=== PATIENT | male | born 1980 | race Caucasian/White ===

== ENCOUNTER 2020-09-19 01:31 | Inpatient (IN) ==
[2020-09-19] MEDS ORDERED: KETOROLAC TROMETHAMINE 15 MG/ML VIAL IV STA (01:57)
--- NOTE | 2020-09-19 02:11 | Emergency Department Note ---
History of Present Illness General Chief complaint: Constipation Stated complaint: CONSTIPATED- ABDOMINAL PAIN Time Seen by Provider: 09/19/20 01:42 Source: patient Mode of arrival: ambulatory Limitations: no limitations History of Present Illness Maximum Pain Intensity: 9 This patient is a 40-year-old male who presents to the emergency department for evaluation of lower abdominal pain/constipation. The patient states that he has not had a normal bowel movement in the past 4 days. He states that throughout the day today, he has had "unbearable" lower abdominal pain, rated a 9/10. He states that he feels like he has to go to the bathroom but is unable. He has some nausea but denies vomiting. Denies urinary symptoms or fevers. He has tried an enema, suppository and milk of magnesia without relief. He does report a history of constipation and states that he was previously on medication for this, but is no longer taking it now. Home Medications Medication Instructions Recorded Confirmed Type clonidine HCl 0.2 mg PO BID 09/19/20 09/19/20 History doxepin 100 mg PO HS 09/19/20 09/19/20 History naltrexone 50 mg PO UD 09/19/20 09/19/20 History Allergies Allergy/AdvReac Type Severity Reaction Status Date / Time Penicillins Allergy Intermediate rash/sob Verified 09/19/20 01:54 Past Med/Surg History Medical History Bronchitis Cough Dog bite GERD (gastroesophageal reflux disease) Pneumonia Thumb laceration Surgical History H/O hernia repair No pertinent past surgical history Family History Other Heart disease Lung disease Social History Smoking Status: Never smoker Hx Substance Use: No marital status: Current Living Situation: Spouse current occupational status: employed Feels Safe at Home: Yes Review of Systems A total of 10 systems reviewed and were otherwise negative Physical Exam Vital Signs Vital Signs - 24 hr 09/19/20 01:34 09/19/20 02:07 09/19/20 02:24 Temperature 36.5 C Temperature Source Temporal Artery Scan Pulse Rate 108 H Pulse Rate [Finger] 101 H Pulse Rate from SpO2 Sensor Respiratory Rate 18 16 18 Respiratory Effort / Characteristics Non-Labored Respiratory Depth Normal Normal Blood Pressure 122/76 Blood Pressure [Left Arm] 137/86 Blood Pressure Mean 91 Blood Pressure Mean [Left Arm] 103 Blood Pressure Position Sitting Pulse Oximetry 98 98 92 Oxygen Delivery Method Room Air Room Air Room Air Sepsis Recent Fever Within 48 Hours No Sepsis New/Unexplained Change in Mental Status No Sepsis Action Taken by Nursing No Action Required 09/19/20 03:00 09/19/20 03:06 09/19/20 03:30 Temperature Temperature Source Pulse Rate 106 H 103 H 112 H Pulse Rate [Finger] 101 H Pulse Rate from SpO2 Sensor 107 H 104 H 112 H Respiratory Rate 23 21 18 Respiratory Effort / Characteristics Respiratory Depth Normal Blood Pressure 131/83 Blood Pressure [Left Arm] 131/83 Blood Pressure Mean 99 Blood Pressure Mean [Left Arm] 99 Blood Pressure Position Pulse Oximetry 94 94 93 Oxygen Delivery Method Room Air Sepsis Recent Fever Within 48 Hours Sepsis New/Unexplained Change in Mental Status Sepsis Action Taken by Nursing 09/19/20 04:00 09/19/20 04:01 09/19/20 04:34 Temperature Temperature Source Pulse Rate 112 H 114 H 106 H Pulse Rate [Finger] Pulse Rate from SpO2 Sensor 113 H 114 H Respiratory Rate 18 18 13 Respiratory Effort / Characteristics Respiratory Depth Blood Pressure 136/98 Blood Pressure [Left Arm] Blood Pressure Mean 110 Blood Pressure Mean [Left Arm] Blood Pressure Position Pulse Oximetry 95 95 Oxygen Delivery Method Sepsis Recent Fever Within 48 Hours Sepsis New/Unexplained Change in Mental Status Sepsis Action Taken by Nursing 09/19/20 05:00 09/19/20 05:01 09/19/20 05:31 Temperature Temperature Source Pulse Rate 107 H 104 H 110 H Pulse Rate [Finger] Pulse Rate from SpO2 Sensor 107 H 104 H 110 H Respiratory Rate 19 17 15 Respiratory Effort / Characteristics Respiratory Depth Blood Pressure 136/85 Blood Pressure [Left Arm] Blood Pressure Mean 102 Blood Pressure Mean [Left Arm] Blood Pressure Position Pulse Oximetry 94 95 94 Oxygen Delivery Method Sepsis Recent Fever Within 48 Hours Sepsis New/Unexplained Change in Mental Status Sepsis Action Taken by Nursing VITALS: Vitals are noted on the nurse's note and reviewed by myself. GENERAL: This is a 40-year-old male, uncomfortable appearing, sitting at the edge of the bed, well-developed well-nourished. SKIN: The skin was without rashes. EYES: Pupils equal round and reactive to light and accommodation. MOUTH: Mucous membranes moist. NECK: Supple without nuchal rigidity. No lymphadenopathy. HEART: Regular rate and rhythm without murmurs gallops or rubs. LUNGS: Clear to auscultation bilaterally without wheezes, rales or rhonchi. ABDOMEN: Positive bowel sounds x 4. Soft, mild tenderness across lower abdomen. No guarding or rebound tenderness. NEURO: Patient was alert and oriented to person place and time. Course Consultations Consultation #1: Derrick Coker PA-C - general surgery Consultation #2: Dr. Mancuso - [facility] hospitalist Administered Medications Discontinued Medications Hydromorphone HCl (Hydromorphone Inj 0.5 Mg/0.5 Ml Syr) 0.5 mg IV NOW STA Stop: 09/19/20 04:30 Last Admin: 09/19/20 04:37 Dose: 0.5 mg Documented by: [id number] Sodium Chloride (Nss 1000ml) 1,000 mls @ 999 mls/hr IV .Q1H1M ONE Stop: 09/19/20 04:40 Last Infusion: 09/19/20 04:46 Dose: 0 mls/hr Documented by: [id number] Admin: 09/19/20 03:43 Dose: 999 mls/hr Documented by: [id number] Ioversol (Ioversol 100ml) 100 ml IV ONCE ONE Stop: 09/19/20 02:53 Last Admin: 09/19/20 02:53 Dose: 92 ml Documented by: [id number] Ketorolac Tromethamine (Ketorolac Tromethamine 15 Mg/Ml Vial) 15 mg IV NOW STA Stop: 09/19/20 01:58 Last Admin: 09/19/20 02:02 Dose: 15 mg Documented by: [id number] Morphine Sulfate (Morphine Sulfate 10 Mg/Ml Carp/Vial) 6 mg IV NOW STA Stop: 09/19/20 02:50 Last Admin: 09/19/20 03:06 Dose: 6 mg Documented by: [id number] Ondansetron HCl (Ondansetron Inj 2 Mg/Ml 2 Ml Vial) Confirm Administered Dose 4 mg .ROUTE .STK-MED ONE Stop: 09/19/20 03:00 Last Admin: 09/19/20 03:05 Dose: Not Given Documented by: [id number] Ondansetron HCl (Ondansetron Inj 2 Mg/Ml 2 Ml Vial) 4 mg IV NOW STA Stop: 09/19/20 02:58 Last Admin: 09/19/20 03:05 Dose: 4 mg Documented by: [id number] Medical Decision Making Differential Diagnosis Appendicitis, testicular torsion, infections, diverticulitis, UTI, obstruction, mesenteric ischemia, aortic pathology, inflammatory bowel disease, renal colic, PUD, pancreatitis, biliary pathology, hernia, volvulus, constipation, as well as other pathologies. Home Medications Current Medication List: was personally reviewed by me Laboratory Data Attestation: I reviewed the patient's lab results. Result diagrams: 09/19/20 01:59 09/19/20 01:59 Lab Results 09/19/20 09/19/20 09/19/20 Range/Units 01:59 01:59 03:31 WBC 14.96 H (4.8-10.8) K/uL RBC 4.01 L (4.7-6.1) M/uL Hgb 14.6 (14.0-18.0) g/dL Hct 41.6 L (42-52) % MCV 103.7 H (80-100) fL MCH 36.4 H (25-34) pg MCHC 35.1 (32-36) g/dL RDW Std Deviation 49.6 H (36.4-46.3) fL RDW Coeff of [place] 13.0 (11.5-14.5) % Plt Count 280 (130-400) K/uL MPV 10.4 (7.4-10.4) fL Immature Gran % (Auto) 0.3 % Neut % (Auto) 88.5 % Lymph % (Auto) 6.6 % Harney % (Auto) 4.5 % Eos % (Auto) 0.0 % Baso % (Auto) 0.1 % Neut # (Auto) 13.23 H (1.4-6.5) K/uL Lymph # (Auto) 0.99 L (1.2-3.4) K/uL Harney # (Auto) 0.68 H (0.11-0.59) K/uL Eos # (Auto) 0.00 (0-0.5) K/uL Baso # (Auto) 0.02 (0-0.2) K/uL Immature Gran # (Auto) 0.04 H (0.00-0.02) K/uL Sodium 141 (136-145) mmol/L Potassium 3.4 L (3.5-5.1) mmol/L Chloride 103 (98-107) mmol/L Carbon Dioxide 26 (21-32) mmol/L Anion Gap 12.0 H (3-11) BUN 5 L (7-18) mg/dl Creatinine 0.99 (0.6-1.4) mg/dl Est Cr Clr Drug Dosing 113.1 ml/min Est GFR ( Amer) 109.2 Est GFR (Non-Af Amer) 94.2 BUN/Creatinine Ratio 5.5 L (10-20) Glucose 173 H (70-99) mg/dl Calcium 8.4 L (8.5-10.1) mg/dl Total Bilirubin 1.7 H (0.2-1) mg/dl AST 163 H (15-37) U/L ALT 46 (12-78) U/L Alkaline Phosphatase 355 H (45-117) U/L Total Protein 8.6 H (6.4-8.2) gm/dl Albumin 3.2 L (3.4-5.0) gm/dl Globulin 5.4 H (2.5-4.0) gm/dl Albumin/Globulin Ratio 0.6 L (0.9-2) Lipase 201 (73-393) U/L Urine Color Urine Appearance (Clear) Urine pH (4.5-7.5) Ur Specific [place] (1.000-1.030) Urine Protein (Negative) Urine Glucose (UA) (Negative) Urine Ketones (Negative) Urine Blood (Negative) Urine Nitrite (Negative) Urine Bilirubin (Negative) Urine Urobilinogen (Negative) Ur Leukocyte Esterase (Negative) COVID[facility]19 [facility] SARS-[facility]-2, RNA, NAAT (NEGATIVE) 09/19/20 09/19/20 Range/Units 03:31 04:40 WBC (4.8-10.8) K/uL RBC (4.7-6.1) M/uL Hgb (14.0-18.0) g/dL Hct (42-52) % MCV (80-100) fL MCH (25-34) pg MCHC (32-36) g/dL RDW Std Deviation (36.4-46.3) fL RDW Coeff of [place]ore[place] (11.5-14.5) % Plt Count (130-400) K/uL MPV (7.4-10.4) fL Immature Gran % (Auto) % Neut % (Auto) % Lymph % (Auto) % [place] % (Auto) % Eos % (Auto) % Baso % (Auto) % Neut # (Auto) (1.4-6.5) K/uL Lymph # (Auto) (1.2-3.4) K/uL Harney # (Auto) (0.11-0.59) K/uL Eos # (Auto) (0-0.5) K/uL Baso # (Auto) (0-0.2) K/uL Immature Gran # (Auto) (0.00-0.02) K/uL Sodium (136-145) mmol/L Potassium (3.5-5.1) mmol/L Chloride (98-107) mmol/L Carbon Dioxide (21-32) mmol/L Anion Gap (3-11) BUN (7-18) mg/dl Creatinine (0.6-1.4) mg/dl Est Cr Clr Drug Dosing ml/min Est GFR ( Amer) Est GFR (Non-Af Amer) BUN/Creatinine Ratio (10-20) Glucose (70-99) mg/dl Calcium (8.5-10.1) mg/dl Total Bilirubin (0.2-1) mg/dl AST (15-37) U/L ALT (12-78) U/L Alkaline Phosphatase (45-117) U/L Total Protein (6.4-8.2) gm/dl Albumin (3.4-5.0) gm/dl Globulin (2.5-4.0) gm/dl Albumin/Globulin Ratio (0.9-2) Lipase (73-393) U/L Urine Color Yellow Urine Appearance Clear (Clear) Urine pH 7.5 (4.5-7.5) Ur Specific [place] > 1.045 H (1.000-1.030) Urine Protein Negative (Negative) Urine Glucose (UA) Negative (Negative) Urine Ketones 1+ H (Negative) Urine Blood Negative (Negative) Urine Nitrite Negative (Negative) Urine Bilirubin Negative (Negative) Urine Urobilinogen Positive H (Negative) Ur Leukocyte Esterase Negative (Negative) COVID-19 Eval Order SARS-CoV-2, RNA, NAAT NEGATIVE (NEGATIVE) Imaging Data Attestation: I personally reviewed and interpreted this imaging study as follows: Radiologist's Impression: CT ABDOMEN & PELVIS With Contrast: Potential colonic obstruction within the descending colon where there is abrupt transition (image [id number]) with upstream liquid and solid stool. This may be related to dense nodular stool in this region versus potential occult underlying mucosal mass. The colon distal to this is completely decompressed. There is no perforation or abscess. Small volume scattered free fluid. Severe hepatic steatosis and hepatomegaly. Radiologist: Dixon Patton MD ECG Data Attestation: I personally reviewed and interpreted this ECG as follows: Indication: + abdominal pain Rate (beats per minute): 107 Rhythm: + sinus tachycardia ECG Intervals/blocks: + Prolonged QT ECG ST segments: + Nonspecific ST abnormalities Change: the following changes noted (nonspecific ST changes noted) MDM Narrative Continuous school bus monitor: Order was placed for continuous school bus monitor. Patient was placed on the school bus monitor. Patient was noted to be in sinus tachycardia at an initial rate of 108 bpm. The patient is a 40-year-old male who presents today complaining of lower abdominal pain and constipation. Patient was very uncomfortable on arrival but his level of pain was unexpected for simple constipation. Therefore, labs and CT were ordered. Labs revealed a leukocytosis of 14,000. Glucose elevated at 173. Bilirubin elevated at 1.7, AST [address] phosphatase [address] CT scan showed a colonic obstruction, possibly secondary to stool in the colon or underlying mass. The case was discussed with on-call general surgery, recommended admission to medicine. [facility] Hospitalist was consulted and agreed to evaluate the patient for further care. The patient received IV fluids, pain medication and antiemetics while in the emergency department. Impression & Plan Colonic obstruction, Abdominal pain Discharge Plan Visit Data Chief Complaint: Constipation Stated Complaint: CONSTIPATED- ABDOMINAL PAIN ED Provider: Madai Bird ED Midlevel Provider: Rose Craven Discharge Problem: Colonic obstruction, Abdominal pain Patient Disposition: Admitted As Inpatient Forms Stand Alone Forms: [facility] Prescriptions Prescriptions: No Action doxepin 100 mg capsule 100 mg PO HS RF: 0 clonidine HCl 0.2 mg tablet 0.2 mg PO BID RF: 0 naltrexone 50 mg tablet 50 mg PO UD RF: 0 Referrals Referrals: Lavelle Carrillo DO [Primary Care Provider] - Discharge Problem: Abdominal pain Qualifiers: Abdominal location: lower abdomen, unspecified Qualified Code(s): R10.30 - Lower abdominal pain, unspecified
[2020-09-19 02:16] LABS: Basophils # (auto) 0.02 K/uL (0-0.2); Basophils % (auto) 0.1 %; Hematocrit (blood only) 41.6 % (42-52); Hemoglobin 14.6 g/dL (14.0-18.0); Immature Granulocytes # (auto) 0.04 K/uL (0.00-0.02); Immature Granulocytes % (auto) 0.3 %; Lymphocytes # (auto) 0.99 K/uL (1.2-3.4); Lymphocytes % (auto) 6.6 %; Mean Corpuscular Hemoglobin 36.4 pg (25-34); Mean Corpuscular Hgb Conc 35.1 g/dL (32-36); Mean Corpuscular Volume 103.7 fL (80-100); Mean Platelet Volume 10.4 fL (7.4-10.4); Monocytes # (auto) 0.68 K/uL (0.11-0.59); Monocytes % (auto) 4.5 %; Neutrophils # (auto) 13.23 K/uL (1.4-6.5); Neutrophils % (auto) 88.5 %; Platelet Count 280 K/uL (130-400); RDW Standard Deviation 49.6 fL (36.4-46.3); Red Blood Count 4.01 M/uL (4.7-6.1); White Blood Count 14.96 K/uL (4.8-10.8)
[2020-09-19 02:36] LABS: Albumin Level 3.2 gm/dl (3.4-5.0); BUN Creatinine Ratio 5.5 (10-20); Calcium 8.4 mg/dl (8.5-10.1); Creatinine Clr Calc Pharmacy 113.1 ml/min; Est GFR (African American) 109.2; Est GFR (Non-African American) 94.2; Potassium 3.4 mmol/L (3.5-5.1)
[2020-09-19 02:48] LABS: Albumin Globulin Ratio 0.6 (0.9-2); Bilirubin,Total 1.7 mg/dl (0.2-1); Globulin 5.4 gm/dl (2.5-4.0); Total Protein 8.6 gm/dl (6.4-8.2)
[2020-09-19] MEDS ORDERED: MoRPHine SULFATE 10 MG/ML CARP/VIAL IV STA (02:49)
[2020-09-19] MEDS ORDERED: OPTIRAY 320 100ml IV ONE (02:52)
[2020-09-19] MEDS ORDERED: ONDANSETRON INJ 2 MG/ML 2 ML VIAL IV STA (02:57)
[2020-09-19] MEDS ORDERED: ONDANSETRON INJ 2 MG/ML 2 ML VIAL ONE ×2 (02:59→14:20)
[2020-09-19] MEDS ORDERED: SODIUM CHLORIDE 0.9% 1000ML 1,000 ML IV ONE (03:40)
[2020-09-19] MEDS ORDERED: HYDROmorphone INJ 0.5 MG/0.5 ML SYR IV STA (04:29)
--- NOTE | 2020-09-19 04:37 | Surgery Consultation ---
Date of Consultation September 19, 2020 Assessment & Plan (1) Colon obstruction: Patient will be admitted to the hospital by the medical service. The following recommendations are in place: Recommend keeping the patient n.p.o. Provide IV fluid for hydration Etiology of patient's: Obstruction has not been ascertained. Would be preferable for patient to undergo a colonoscopy to see if he has an underlying mass. Therefore we recommend a gastroenterology consultation be obtained. Patient does not have any peritoneal signs or other signs of acute abdomen. If surgery is required it would be preferable to perform a colonoscopy and appropriate bowel prep prior to any procedures. We will continue to follow along with this patient is hospitalized as above. ? etiology. GI to do sigmoidoscopy tomorrow. will follow along. may need NGT if nausea/emesis occurs. History of Present Illness Reason for Consultation: Constipation with colon obstruction History of Present Illness This is a 40-year-old male who presented to the [facility] secondary to constipation and abdominal pain. Patient notes that he has been constipated for approximately 5 days. Notes the last normal bowel movement he had was 5 days ago although he did report a small bowel movement earlier today. He presented to the emergency department due to worsening abdominal distention and pain that has been present over the past 12 hours. He denies any fevers, shakes, chills. He denies any palliative or provocative factors to his abdominal discomfort. He has had some intermittent nausea but has not vomited. He feels as though he needs to have a bowel movement but just cannot. He notes he has never had this problem before. He denies any weight loss. He denies any family history of colon cancer. Prior to his current presentation he denies any change in his bowel habits. He denies any melena or bright blood per rectum. In the emergency department the patient did have labs where his white blood cell count was 14.9. His hemoglobin was within the normal range. His platelet count was noted to be within normal range. Chemistry profile did show sodium was 141 potassium was 3.4. His BUN and creatinine were 5 and 0.9. He was noted to have some abnormalities of his LFTs with a total bilirubin of 1.7. His AST was elevated at 163 however his ALT was normal. Alkaline phosphatase was elevated at 355. Lipase was normal. A Covid test was performed and was negative. Imaging included a CT scan of the abdomen and pelvis. This study demonstrated the patient had a colonic obstruction within the descending colon felt to be related to either a large stool burden or potential underlying mucosal mass. No free air was noted. Patient notes that when he is feeling well he is able to walk negotiate steps and inclines without shortness of breath or chest pain. He does note that he is a recovering alcoholic with his most recent alcoholic beverage being in May 2020. Questioned about how much he used to drink he he could not quantify the amount but said "quite a bit." At the time of my exam the patient was resting comfortably in bed he was in no distress and his pain was well controlled. Allergies Allergy/AdvReac Type Severity Reaction Status Date / Time Penicillins Allergy Intermediate rash/sob Verified 09/19/20 01:54 Home Medications Medication Instructions Recorded Confirmed Type clonidine HCl 0.2 mg PO BID 09/19/20 09/19/20 History doxepin 100 mg PO HS 09/19/20 09/19/20 History naltrexone 50 mg PO UD 09/19/20 09/19/20 History Patient History Medical History Bronchitis Cough Dog bite GERD (gastroesophageal reflux disease) Pneumonia Thumb laceration Surgical History H/O hernia repair No pertinent past surgical history Family History Other Heart disease Lung disease Social History Smoking Status: Unknown if ever smoked Second Hand Exposure: No; Do You Dip or Chew Tobacco: No; Tobacco Cessation Education Requested by Patient: No Hx Alcohol Use: No Hx Substance Use: Yes (alcohol) Preferred Language: Albanian Communication Ability: Effective Beliefs That Will Affect Care: None marital status: Current Living Situation: Family current occupational status: employed Other Information That Helps Us Care for You: No Feels Safe at Home: No Is there a partner from a previous relationship who is making you feel unsafe now?: No Any Concerns about Your Family Situation: No Would You Like to Speak to Someone About Your Situation: No Safety Concerns: Feels Safe At This Time Assistive Devices: None Review of Systems Constitutional: no fever and no chills Eyes: no diplopia Ear, Nose, Mouth, Throat: no ear pain Respiratory: no cough and no dyspnea Cardiovascular: no chest pain Gastrointestinal: + abdominal pain, + nausea and + constipation; no vomiting, no diarrhea/loose stools, no blood in stools and no melena Genitourinary: no dysuria Musculoskeletal: no back pain Integumentary: no rash Neurologic: no localized weakness Physical Exam Constitutional: well developed and well nourished; no acute distress Eyes: no conjunctival abnormality ENMT: Ears: no hearing impairment Neck: trachea midline Respiratory: normal respiratory effort, lungs clear to auscultation Cardiovascular: Rate/Rhythm: regular rate and regular rhythm Gastrointestinal (Abdomen): Abdomen is distended. Bowel sounds are hypoactive. Abdomen is tympanic to percussion. There is no rebound tenderness or guarding. There is minimal pain with palpation. Musculoskeletal: No calf tenderness. Skin: no rashes, warm and dry Neurologic: moves all extremities Psychiatric: Orientation: alert and oriented x 3 Affect: + flat affect Results & Data ([facility]) Vital Signs (Past 12 Hours) Vital Signs Temp Pulse Pulse Resp BP BP Pulse Ox 09/19/20 03:06 101 H 22 131/83 94 09/19/20 02:24 101 H 18 137/86 92 09/19/20 02:07 16 98 09/19/20 01:34 36.5 C 108 H 18 122/76 98 PG Care Time/CCT Total # of Minutes Spent Total Time Spent with Patient: Total time spent is greater than 50% in coordination of care (as documented) at patient's floor/unit and/or counseling patient: Coding Level of Care Code 14229 Inpt Consult Level 5 Diagnoses Colon obstruction K56.609
[2020-09-19 04:54] LABS: Appearance Urine Clear (Clear); Bilirubin Urine Negative (Negative); Blood Urine Negative (Negative); Color Urine Yellow; Glucose Urine UA Negative (Negative); Ketones Urine 1+ (Negative); Leukocyte Esterase Urine Negative (Negative); Nitrite Urine Negative (Negative); Protein Urine Negative (Negative); Specific Gravity Urine > 1.045 (1.000-1.030); Urobilinogen Urine Positive (Negative); pH Urine 7.5 (4.5-7.5)
[2020-09-19] MEDS ORDERED: NITROGLYCERIN SL 0.4 MG/TAB TAB SL PRN (06:20)
[2020-09-19] MEDS: KETOROLAC TROMETHAMINE 15 MG/ML VIAL IV PRN ×2 (06:39→14:25)
[2020-09-19] MEDS: D5W AND NSS 1,000 ML IV SCH ×3 (06:40→22:43)
--- NOTE | 2020-09-19 07:42 | CT Scan Report ---
ABDOMEN AND PELVIS CT WITH IV CONTRAST CT DOSE: 644.37 mGy.cm HISTORY: Acute lower abdominal pain with constipation. lower abdominal pain, constipation TECHNIQUE: Multiaxial CT images of the abdomen and pelvis were performed following the IV administrat ion of 92 cc of Optiray 320, A dose lowering technique was utilized adhering to the principles of [place]. COMPARISON STUDY: CT abdomen pelvis 01/15/2007 FINDINGS: The imaged inferior cardiac chambers are unremarkable. Right hemidiaphragmatic elevation with right g reater than left bibasilar opacities suggestive of atelectasis. There is no pneumatosis or pneumoperi toneum. Spleen is enlarged, 14.5 cm. Unremarkable pancreas and adrenal glands with mildly contracted gallbladder. Hepatic steatosis with severe graft hepatic steatosis within the garrick hepatis. Patency of the hepatic and portal veins. Unremarkable kidneys. Urinary bladder wall thickening with partial distention. Unremarkable prostate. Aorta and IVC are within normal limits. Nonspecific prominent and mildly enlarged periportal and pre caval lymph nodes measure up to 10 mm. The distal large bowel is decompressed. There is mild dilation of the upstream colon with air-fluid levels with transition point noted within the distal one third of the descending colon on image 343. No obstructing mass identified. Air and fluid-filled nondilated loops of small bowel are noted throughout the abdomen. Visualized appendix appears noninflamed. Trac e abdominal pelvic ascites. No acute fracture or suspicious bone lesion. IMPRESSION: 1. Narrowing of the distal one third of the descending colon with mild upstream colonic dilation with air-fluid levels. Correlation should be made with colonoscopy to exclude an obstructing mucosal lesi on. Peristalsis with colonic ileus/diarrheal illness could appear similarly. 2. Scattered small bowel air-fluid levels without small bowel obstruction may reflect ileus versus en teritis. 3. Noninflamed appendix. 4. No pneumoperitoneum. 5. Hepatic steatosis. 6. Mild hepatomegaly. ACT 112: Negative or not required by law. The above report was generated using voice recognition software. It may contain grammatical, syntax o r spelling errors. Electronically signed by: Jean Spain M.D. 09/19/2020 7:40 AM
[2020-09-19] MEDS: POTASSIUM CHLORIDE / WTR 10 MEQ/100 ML PLCT IV SCH ×3 (07:49→10:15)
[2020-09-19] MEDS: cloNIDine HCL 0.1 MG TAB PO SCH ×2 (07:49→20:10)
--- NOTE | 2020-09-19 09:21 | History and Physical Report ---
DATE OF ADMISSION: 09/19/2020 CHIEF COMPLAINT: Abdominal pain, constipation. HISTORY OF PRESENT ILLNESS: A 40-year-old male with past medical history significant for GERD, backache, migraine, anxiety, depression, history of alcohol abuse who presents with abdominal pain and constipation. The patient says since last 5 days, he did not move his bowels and today he developed severe abdominal pain in the lower abdomen, which prompted him to come to the ER. Before that he says he was moving his bowels every day. Denies any blood in the stools. He was nauseous. His appetite was okay, but it has become slightly reduced since the last couple of days. Denies any fever or chills, no upper abdominal pain. Denies any chest pain, no shortness of breath, no cough. Had a headache a few days back, currently no headache, no blurred vision, no earache, no runny nose, no sore throat, no dysphagia, no shortness of breath, no chest pain. The patient states he was alcoholic before and he went to rehab in 06/2019. Since then he drank only one day. He is supposed to take naltrexone as needed, but he says he is taking it every day. He says it can cause liver issues, but he says he is taking it every day and he is also on clonidine and doxepin and [id number] Nexium currently. ALLERGIES: PENICILLINS. PAST MEDICAL HISTORY: As mentioned above. PAST SURGICAL HISTORY: Repair of inguinal hernia. MEDICATIONS: Naltrexone, doxepin, and clonidine 0.2 mg p.o. b.i.d. FAMILY HISTORY: Significant for mother has anxiety and migraines. Father had IA and pulmonary embolism. Paternal grandmother had breast cancer. SOCIAL HISTORY: . Smokes cigars once in a while, used to drink alcohol in the past and currently says his last use was in 06/2019 as he went to rehab and stopped drinking, he drank only one day since then, but denies any drug use. REVIEW OF SYMPTOMS: As per HPI. Rest of the review of systems are negative. PHYSICAL EXAMINATION: GENERAL: The patient is of moderate build, not in acute distress. VITAL SIGNS: Temperature 36.5, pulse 101, respiratory rate 22, blood pressure 131/83, oxygen 94% on room air. HEENT: Pupils equal, round, reactive to light. Oral mucosa dry. NECK: No JVD, no neck masses seen. CARDIOVASCULAR: S1, S2 heard, regular rate and rhythm, no murmur, no gallop. RESPIRATORY SYSTEM: Normal AP diameter. No accessory muscle use. No wheezing, no crackles. ABDOMEN: Somewhat tense. Bowel sounds sluggish. No guarding, no rigidity. Mild lower abdominal tenderness. CENTRAL NERVOUS SYSTEM: Cranial nerves II-XII grossly intact. Nonfocal. EXTREMITIES: No edema, no erythema. LABORATORY DATA: WBC 14.9, hemoglobin 14.6, hematocrit 41.6, platelets 280. Sodium 141, potassium 3.4, chloride 103, bicarbonate 26, BUN 5, creatinine 0.9, serum glucose 173, calcium 8.4, total bilirubin 1.7, AST 163, ALT 46, alkaline phosphatase 355, total protein 8.5, lipase 201. Urinalysis, +1 ketones. SARS-CoV-2 negative. ELECTROCARDIOGRAM: Sinus tachycardia at a rate of 107, prolonged QT of 520. IMAGING: CT of abdomen and pelvis preliminary report shows potential colonic obstruction within the descending colon where there is transition with upstream liquid and solid stool. This may be related to dense stool in this region versus potential occult underlying mucosal mass. Colon distal to this completely decompressed. There is no perforation or abscess. Small volume scattered free fluid. Severe hepatic steatosis and hepatomegaly. ASSESSMENT AND PLAN: This is a 40-year-old male who presents with constipation, abdominal pain. 1. Constipation, abdominal pain. CAT scan showing impacted stool versus underlying colonic mass in the descending colon. Received pain medication in the Emergency Room. N.p.o., IV fluids, pain control with Toradol p.r.n. Emergency Room consulted Surgery and we will also consult Gastrointestinal for possible sigmoidoscopy/colonoscopy. Monitor in the hospital. 2. Elevated liver function tests. The patient has history of alcoholism. Says he was in rehabilitation in 06/2019. Since then, he is not drinking. He drank only once since then. Hepatic steatosis on the CAT scan. We will follow the repeat laboratories. Await Gastrointestinal input. The patient says he is also taking naltrexone every day, which can cause cholestasis We will hold naltrexone for now and we will also monitor for any alcohol withdrawals.Also on clonidine? 3. Depression, on doxepin.Clonidine? 4. Gastroesophageal reflux disease, on proton pump inhibitor. 5. Deep vein thrombosis prophylaxis, sequential compression devices for now. 6. Disposition: Closely monitor in the med-telemetry. Level 1 full code. Expect to discharge home and follow with family doctor. RIN
[2020-09-19] MEDS ORDERED: bisacodyL 10 MG SUPP PR ONE (09:44)
--- NOTE | 2020-09-19 09:55 | Gastrointestinal Consultation ---
Date of Consultation September 19, 2020 Assessment & Plan (1) Colonic obstruction: Pt is a 40 y/o male who presented w constipation, abd pain, distension, CT abd/pelvis showed signs of upstream colon dilation w transition point on descending colon concerning for obstruction. He is passing little flatus and had small stool yesterday. On exam abd is distended, but bowel sounds present. He is not having n/v. Hx of ETOH abuse, last consumption of ETOH was 05/2020, on Doxepin for insomina, Naltrexone for ETOh withdrawals. Denies narcotics. - Administer Bisacodyl 10mg NH today; may follow with tap water enema if no BM produced - Bowel rest; if n/v, place NGT for decompression - KUB tomorrow - Will determine timing of colonoscopy eval to r/o obstructive mass depending on bowel function and his ability to tolerate bowel prep - Surgery following Supervising Physician Co-Signing Physician Notes Late entry: Patient was seen and examined on 09/19 with NATALIA Ness whose note reflects our findings and plan. 5 days without BM, abd pain. CT reviewed. Unclear if finding represents stool vs a colonic lesion. Will proceed with bowel regimen and re-evaluate tomorrow. Abd mildly tender on exam. Surgery following. History of Present Illness Reason for Consultation: Constipation, bowel obstruction Requesting Physician: Dr. Candelario Mitchell Attending Physician: Dr. Charo Mack History of Present Illness Pt is a 40 y/o male who presented w abd pain, abd distension and constipation since last . Reports has tried Miralax and suppository at home prior to coming to hospital but not having much stool output. He is passing very little amt of flatus. He did have a small stool yesterday. He denies fever, chills, n/v. He reports not on bowel regimen on regular basis. Hx of ETOH abuse, last ETOH intake 05/2020, did go through ETOH rehab last year. He take Doxepin for insomnia, Naltrexone for ETOH withdrawals however denies any narcotics. Denies hx of abdominal surgeries, family hx of colorectal ca or IBD. He never had any endoscopic eval before. CT abd/pelvis w contrast: 1. Narrowing of the distal one third of the descending colon with mild upstream colonic dilation with air-fluid levels. Correlation should be made with colonoscopy to exclude an obstructing mucosal lesion. Peristalsis with colonic ileus/diarrheal illness could appear similarly. 2. Scattered small bowel air-fluid levels without small bowel obstruction may reflect ileus versus enteritis. 3. Noninflamed appendix. 4. No pneumoperitoneum. 5. Hepatic steatosis. 6. Mild hepatomegaly. Allergies Allergy/AdvReac Type Severity Reaction Status Date / Time Penicillins Allergy Intermediate rash/sob Verified 09/19/20 01:54 Home Medications Medication Instructions Recorded Confirmed Type clonidine HCl 0.2 mg PO BID 09/19/20 09/19/20 History doxepin 100 mg PO HS 09/19/20 09/19/20 History naltrexone 50 mg PO UD 09/19/20 09/19/20 History Patient History Medical History Bronchitis Cough Dog bite GERD (gastroesophageal reflux disease) Pneumonia Thumb laceration Surgical History H/O hernia repair No pertinent past surgical history Family History Other Heart disease Lung disease Social History Smoking Status: Unknown if ever smoked Second Hand Exposure: No; Do You Dip or Chew Tobacco: No; Tobacco Cessation Education Requested by Patient: No Hx Alcohol Use: No Hx Substance Use: Yes (alcohol) Preferred Language: Urdu Communication Ability: Effective Beliefs That Will Affect Care: None marital status: Current Living Situation: Family current occupational status: employed Other Information That Helps Us Care for You: No Feels Safe at Home: No Is there a partner from a previous relationship who is making you feel unsafe now?: No Any Concerns about Your Family Situation: No Would You Like to Speak to Someone About Your Situation: No Safety Concerns: Feels Safe At This Time Assistive Devices: Oxygen - Continuous Review of Systems Review of Systems: All systems reviewed & are unremarkable except as noted in HPI & below Physical Exam Constitutional: WD/WN, vitals as above well groomed, cooperative and comfortable Eyes: PERRL, conjunctivae normal, anicteric sclerae ENMT: external ear and nose normal, oropharynx normal Respiratory: normal respiratory effort, lungs clear to auscultation Cardiovascular: RRR, no murmur, no edema Gastrointestinal (Abdomen): Inspection/Auscultation: + abdomen distended and + hyperactive bowel sounds Percussion/Palpation: abdomen nontender Skin: no rashes, warm and dry no jaundice Psychiatric: A+Ox3, euthymic affect Lymphatic: no lymphedema Results & Data ([facility]) Vital Signs (Past 12 Hours) Vital Signs Temp Pulse Pulse Resp BP BP Pulse Ox 09/19/20 07:21 36.5 C 108 H 18 123/77 94 09/19/20 07:16 36.6 C 107 H 20 126/85 93 09/19/20 06:23 108 H 09/19/20 05:31 110 H 15 94 09/19/20 05:01 104 H 17 95 09/19/20 05:00 107 H 19 136/85 94 09/19/20 04:34 106 H 13 09/19/20 04:01 114 H 18 95 09/19/20 04:00 112 H 18 136/98 95 09/19/20 03:30 112 H 18 93 09/19/20 03:06 103 H 101 H 21 131/83 94 09/19/20 03:00 106 H 23 131/83 94 09/19/20 02:24 101 H 18 137/86 92 09/19/20 02:07 16 98 09/19/20 01:34 36.5 C 108 H 18 122/76 98
[2020-09-19] MEDS: PANTOprazole 40 MG in SYRINGE 0 ML IV SCH (10:50)
[2020-09-19] MEDS: MoRPHine SULFATE 2 MG/ML CARP IV PRN ×2 (11:16→17:25)
--- NOTE | 2020-09-19 12:50 | Hospitalist Progress Note ---
Date of Service September 19, 2020 Assessment & Plan (1) Colonic obstruction: (2) Abdominal pain: Present on admission with abdominal discomfort mostly due to constipation CT scan showed narrowing of the distal one third of the descending colon with mild upstream colonic dilation with air-fluid levels Gastro on board Bisacodyl 10mg NM given, may follow with tap water enema if no BM produced Continue bowel rest by keeping NPO If develops any N/V, consider to place an NGT for decompression Surgery on board, continue conservative management GI plan for possible colonoscopy eval during this admission Will repeat KUB in am Elevated liver function tests. Possible related to alcohol abuse AST 163 and ALk phos 355 Continue monitor Liver enzymes History of Alcohol abuse He said that he drank on once since rehab back in 06/2019 Counseling on alcohol cessation No sign of alcohol withdrawal Depression Continue doxepin and Clonidine Stable Hypokalemia K 3.4 on admission K replaced Continue monitor BMP Gastroesophageal reflux disease Continue proton pump inhibitor. DVT px on SCDs Disposition Will discharge once medically stable Admission and Anticipated Discharge Date Admission Date: September 19, 2020 Subjective Pt was seen and examined for follow up of abdominal pain Lying in bed continue to have abdominal discomfort Pt said that his pain a little better currently because he just received pain med Pt said that yesterday that he had a small bowel movement He said that he is passing gas Denies any chest pain, palpitation, dizziness and SOB Review of Systems Review of Systems: All systems reviewed & are unremarkable except as noted in Subjective Physical Exam Physical Exam: General- No acute distress Head- atraumatic Eyes- PERRL, EOMI, ENT- oropharynx clear Neck- supple, no JVD Lungs- clear to auscultation Heart- regular rhythm; no murmur Abdomen- normal bowel sounds, +mild tender, +abdominal distention Extremities- no calf tenderness Neuro- alert, oriented x 3; PERRL, EOMI; no facial palsy; no dysarthria Skin- warm & dry Results & Data Results & Data ([facility]) Vital Signs (Past 12 Hours) Vital Signs Temp Pulse Pulse Resp BP BP Pulse Ox 09/19/20 11:49 36.9 C 111 H 18 119/68 92 09/19/20 07:21 36.5 C 108 H 18 123/77 94 09/19/20 07:16 36.6 C 107 H 20 126/85 93 09/19/20 06:23 108 H 09/19/20 05:31 110 H 15 94 09/19/20 05:01 104 H 17 95 09/19/20 05:00 107 H 19 136/85 94 09/19/20 04:34 106 H 13 09/19/20 04:01 114 H 18 95 09/19/20 04:00 112 H 18 136/98 95 09/19/20 03:30 112 H 18 93 09/19/20 03:06 103 H 101 H 21 131/83 94 09/19/20 03:00 106 H 23 131/83 94 09/19/20 02:24 101 H 18 137/86 92 09/19/20 02:07 16 98 09/19/20 01:34 36.5 C 108 H 18 122/76 98 (1) Abdominal pain Abdominal location: lower abdomen, unspecified Qualified Code(s): R10.30 - Lower abdominal pain, unspecified
--- NOTE | 2020-09-19 12:54 | Electrocardiogram Report ---
Test Reason : Blood Pressure : / mmHG Vent. Rate : 107 BPM Atrial Rate : 107 BPM P-R Int : 132 ms QRS Dur : 084 ms QT Int : 390 ms P-R-T Axes : 039 003 010 degrees QTc Int : 520 ms Sinus tachycardia Prolonged QT Abnormal ECG When compared with ECG of 21-MAY-2019 17:50, Criteria for Septal infarct are no longer Present Nonspecific T wave abnormality now evident in Anterior leads Confirmed by Edgard Constantino ([id number]) on 09/19/2020 12:53:53 PM Referred By: REFERRED SELF Confirmed By:Edgard Constantino
--- NOTE | 2020-09-19 12:57 | Electrocardiogram Report ---
Test Reason : Blood Pressure : / mmHG Vent. Rate : 113 BPM Atrial Rate : 113 BPM P-R Int : 128 ms QRS Dur : 084 ms QT Int : 358 ms P-R-T Axes : 041 000 016 degrees QTc Int : 491 ms Sinus tachycardia Otherwise normal ECG When compared with ECG of 19-SEP-2020 04:15, (unconfirmed) No significant change was found Confirmed by Edgard Constantino ([id number]) on 09/19/2020 12:56:56 PM Referred By: REFERRED SELF Confirmed By:Edgard Constantino
[2020-09-19] MEDS: hydrOXYzine HCl 10 MG TAB PO PRN (15:25)
[2020-09-19] MEDS: ONDANSETRON INJ 2 MG/ML 2 ML VIAL IV PRN (19:31)
[2020-09-19] MEDS: DOXEPIN HCL 50 MG CAPSULE PO SCH (20:11)
[2020-09-19] MEDS: PROMETHAZINE HCL 12.5 MG in SODIUM CHLORIDE 0.9% 50 ML IV PRN (21:21)
[2020-09-19] MEDS ORDERED: MoRPHine SULFATE 2 MG/ML CARP IV STA (22:08)
[2020-09-19] MEDS ORDERED: METOPROLOL TARTRATE 1 MG/ML VIAL IV STA (22:09)
[2020-09-20] MEDS: PROMETHAZINE HCL 12.5 MG in SODIUM CHLORIDE 0.9% 50 ML IV PRN ×2 (04:02→17:30)
[2020-09-20] MEDS: KETOROLAC TROMETHAMINE 15 MG/ML VIAL IV PRN ×2 (04:22→18:28)
[2020-09-20 07:07] LABS: Albumin Level 2.4 gm/dl (3.4-5.0); Bilirubin,Total 3.1 mg/dl (0.2-1); Calcium 7.9 mg/dl (8.5-10.1); Creatinine Clr Calc Pharmacy 125.4 ml/min; Est GFR (African American) 122.5; Est GFR (Non-African American) 105.7; Total Protein 6.9 gm/dl (6.4-8.2)
[2020-09-20 08:06] LABS: Potassium 3.9 mmol/L (3.5-5.1)
[2020-09-20 08:10] LABS: Bilirubin Direct 1.8 mg/dl (0-0.2); Magnesium 3.5 mg/dl (1.8-2.4)
[2020-09-20] MEDS: D5W AND NSS 1,000 ML IV SCH ×3 (08:13→22:27)
[2020-09-20] MEDS: cloNIDine HCL 0.1 MG TAB PO SCH ×2 (08:14→20:55)
[2020-09-20] MEDS: ONDANSETRON INJ 2 MG/ML 2 ML VIAL IV PRN ×2 (08:14→15:19)
[2020-09-20] MEDS: MoRPHine SULFATE 2 MG/ML CARP IV PRN ×2 (08:14→15:19)
--- NOTE | 2020-09-20 08:15 | XRay Report ---
XR chest 1V portable HISTORY: hypoxia COMPARISON: Chest 02/10/2016. FINDINGS: No pneumothorax. No pleural effusions. There are low lung volumes with mild elevation the r ight hemidiaphragm. Bibasilar linear densities favor subsegmental atelectasis. The upper lung zones a re clear. No evidence for pulmonary edema. Cardiac silhouette is mildly enlarged. This may be accentu ated by the low lung volumes. IMPRESSION: Low lung volumes with bibasilar linear densities suggesting atelectasis. ACT 112: Negative or not required by law. Electronically signed by: Kade Vega M.D. 09/20/2020 8:14 AM
[2020-09-20 08:17] LABS: Basophils # (auto) 0.01 K/uL (0-0.2); Hematocrit (blood only) 39.4 % (42-52); Hemoglobin 13.3 g/dL (14.0-18.0); Immature Granulocytes # (auto) 0.18 K/uL (0.00-0.02); Immature Granulocytes % (auto) 0.8 %; Lymphocytes % (auto) 4.7 %; Mean Corpuscular Hemoglobin 36.2 pg (25-34); Mean Corpuscular Hgb Conc 33.8 g/dL (32-36); Mean Corpuscular Volume 107.4 fL (80-100); Mean Platelet Volume 10.7 fL (7.4-10.4); Monocytes # (auto) 1.21 K/uL (0.11-0.59); Monocytes % (auto) 5.1 %; Neutrophils # (auto) 21.11 K/uL (1.4-6.5); Neutrophils % (auto) 89.4 %; Platelet Count 155 K/uL (130-400); RDW Coefficient of Variation 13.8 % (11.5-14.5); RDW Standard Deviation 53.9 fL (36.4-46.3); Red Blood Count 3.67 M/uL (4.7-6.1); White Blood Count 23.61 K/uL (4.8-10.8)
[2020-09-20] MEDS ORDERED: cefTRIAXone SODIUM 2,000 MG in DEXTROSE 5% 50 ML IV ONE (09:30)
--- NOTE | 2020-09-20 09:32 | XRay Report ---
KUB CLINICAL HISTORY: Evaluate stool burden. FINDINGS: 2 AP supine abdominal radiographs are correlated with abdominal CT dated 321. The small bow el and colon are mildly distended and gas-filled. Small bowel loops measure up to 3.8 cm in diameter. There is minimal colonic fecal retention. No evidence of intraperitoneal free air is seen on these s upine images. There are no abnormal abdominal calcifications. The liver appears mildly enlarged. The bony structures are intact as imaged. IMPRESSION: 1. There is minimal colonic fecal retention. 2. There is gaseous distention of the small bowel and colon. The appearance favors an ileus. Low-grad e/developing obstruction is considered less likely, and clinical correlation will be required. Electronically signed by: Jayme Kenney M.D. 09/20/2020 9:30 AM
[2020-09-20] MEDS ORDERED: SODIUM CHLORIDE 0.9% 1000ML 1,000 ML IV ONE (09:34)
--- NOTE | 2020-09-20 09:34 | Surgery Progress Note ---
Date of Service September 20, 2020 Assessment & Plan (1) Abdominal pain: appears to be infectious etiology. will check stool for c.diff. flagyl already initiated. agressive hydration. does not appear surgical etiology but will continue to follow along until definitive dx. (2) Leukocytosis: (3) Diarrhea: Admission and Anticipated Discharge Date Admission Date: September 19, 2020 Subjective pt downstairs getting kub per RN....per her pt tachypnea, tachycardia with multiple loose/explosive bm's... wbc increased to 23,000. pt himself states he has less pain... Physical Exam Physical Exam: pt not available for exam Results & Data ([facility]) Vital Signs (Past 12 Hours) Vital Signs Temp Pulse Pulse Resp BP BP Pulse Ox 09/20/20 08:16 36.9 C 115 H 22 138/82 95 09/20/20 02:56 36.7 C 113 H 30 H 128/74 91 09/20/20 01:54 110 H 22 91 09/20/20 01:45 108 H 28 H 87 L 09/20/20 01:40 36.9 C 110 H 30 H 81 L 09/20/20 01:11 118 H 09/19/20 22:35 118 H 127/78 09/19/20 22:33 118 H 18 127/78 90 PG Care Time/CCT Total # of Minutes Spent Total Time Spent with Patient: Total time spent is greater than 50% in coordination of care (as documented) at patient's floor/unit and/or counseling patient: Coding Level of Care Code 44328 Subseq Hosp Care Lvl 2 Diagnoses Abdominal pain R10.30 Abdominal location: lower abdomen, unspecified Leukocytosis D72.829 Diarrhea R19.7 (1) Abdominal pain Abdominal location: lower abdomen, unspecified Qualified Code(s): R10.30 - Lower abdominal pain, unspecified
--- NOTE | 2020-09-20 10:06 | Gastroenterology Progress Note ---
Date of Service September 20, 2020 Assessment & Plan (1) Colonic obstruction: Pt is a 40 y/o male who presented w constipation, abd pain, distension, CT abd/pelvis showed signs of upstream colon dilation w transition point on descending colon concerning for obstruction. He is passing little flatus and had small stool yesterday. On exam abd is distended, but bowel sounds present. He is not having n/v. Hx of ETOH abuse, last consumption of ETOH was 05/2020, on Doxepin for insomina, Naltrexone for ETOh withdrawals. Denies narcotics. Large BMs overnight and abd pain is improved. Though on exam abd still distended high pitched sounds now. No n/v Concerns for sepsis WBC up, tachycardic. - Discussed w hospitalist to start broad spectrum antibx and obtain whitley culture - KUB this AM; if still w large amt of fecal material will order another round of enema + suppository -> mild fecal retention, no free air, small/large bowel distension noted concerning for ileus, obstruction less likely. Pls replete K goal >4, avoid narcotics. Will order Relistor. - Bowel rest, IVF support. If n/v, pls place NGT for decompression - Surgery following Admission and Anticipated Discharge Date Admission Date: September 19, 2020 Supervising Physician Co-Signing Physician Notes Late entry: Patient was seen and examined on 09/20 with NATALIA Ness whose note reflects our findings and plan. Bowel regimen in place. Subjective Pt having large bowel movements up to this AM. Reports abd not as tender. Denies any n/v Noted WBC up to 23K, he is tachycardic, requiring O2 4L NC. CXR w signs of atelectasis Review of Systems Review of Systems: All systems reviewed & are unremarkable except as noted in HPI & below Physical Exam Constitutional: WD/WN, vitals as above well groomed, cooperative and comfortable Eyes: PERRL, conjunctivae normal, anicteric sclerae ENMT: external ear and nose normal, oropharynx normal Respiratory: normal respiratory effort, lungs clear to auscultation Cardiovascular: RRR, no murmur, no edema Gastrointestinal (Abdomen): Inspection/Auscultation: + abdomen distended and + high-pitched sounds Percussion/Palpation: abdomen nontender Skin: no rashes, warm and dry no jaundice Psychiatric: A+Ox3, euthymic affect Lymphatic: no lymphedema Results & Data ([facility]) Vital Signs (Past 12 Hours) Vital Signs Temp Pulse Pulse Resp BP BP Pulse Ox 09/20/20 08:16 36.9 C 115 H 22 138/82 95 09/20/20 02:56 36.7 C 113 H 30 H 128/74 91 09/20/20 01:54 110 H 22 91 09/20/20 01:45 108 H 28 H 87 L 09/20/20 01:40 36.9 C 110 H 30 H 81 L 09/20/20 01:11 118 H 09/19/20 22:35 118 H 127/78 09/19/20 22:33 118 H 18 127/78 90
[2020-09-20] MEDS ORDERED: METHYLNALTREXONE BROMIDE 12 MG/0.6 ML VIAL SQ ONE (10:15)
[2020-09-20] MEDS: metroNIDAZOLE 500 MG/100 ML BAG IV SCH ×2 (10:39→17:31)
[2020-09-20] MEDS: PANTOprazole 40 MG in SYRINGE 0 ML IV SCH (10:41)
--- NOTE | 2020-09-20 13:41 | Hospitalist Progress Note ---
Date of Service September 20, 2020 Assessment & Plan (1) Colonic obstruction: (2) Abdominal pain: Present on admission with abdominal discomfort mostly due to constipation CT scan showed narrowing of the distal one third of the descending colon with mild upstream colonic dilation with air-fluid levels KUB showed minimal colonic fecal retention. There is gaseous distention of the small bowel and colon. The appearance favors an ileus. Gastro on board Bisacodyl 10mg [place] given, may follow with tap water enema if no BM produced Continue bowel rest by keeping NPO If develops any N/V, consider to place an NGT for decompression Surgery on board, continue conservative management Abdominal pain improves Starting on Rocephin and IV Flagyl due to elevate WBC and possible infection Elevated liver function tests. Possible related to alcohol abuse AST decreased from 163 to 82 and ALk phos decreased from 355 to 256 Continue monitor Liver enzymes Elevated WBC Elevated Lactate Possible related to sepsis (Elevated WBC and Tachycardia ) Procalcitonin wnl Continue IVF and IV abd with Rocephin and Flagyl started this morning Blood cx collected today - pending Will repeat Lactate Will monitor WBC History of Alcohol abuse He said that he drank on once since rehab back in 06/2019 Counseling on alcohol cessation No sign of alcohol withdrawal Depression Continue doxepin and Clonidine Stable Hypokalemia K 3.4 on admission Potassium 3.9 today Continue monitor BMP Gastroesophageal reflux disease Continue proton pump inhibitor. DVT px on SCDs Disposition Will discharge once medically stable Admission and Anticipated Discharge Date Admission Date: September 19, 2020 Subjective Pt was seen and examined for follow up of abdominal discomfort and distended Lying in bed with no acute distress, but continue to require 4-5L NC oxygen supplement Pt said that he feels a little better today He said that he had 3 large bowel movement He said that his mouth feels very dry and would like to get drink something He said that his abdominal pain improves today Denies any chest pain, palpitation, dizziness and dizziness Physical Exam Physical Exam: General- No acute distress Head- atraumatic Eyes- PERRL, EOMI, ENT- oropharynx clear, dry mouth Neck- supple, no JVD Lungs- clear to auscultation Heart- regular rhythm; no murmur Abdomen- normal bowel sounds, +mild tender, +abdominal distention Extremities- no calf tenderness Neuro- alert, oriented x 3; PERRL, EOMI; no facial palsy; no dysarthria Skin- warm & dry Results & Data Results & Data ([facility]) Vital Signs (Past 12 Hours) Vital Signs Temp Pulse Pulse Resp BP Pulse Ox 09/20/20 11:21 37.0 C 106 H 24 114/73 91 09/20/20 09:00 110 H 09/20/20 08:16 36.9 C 115 H 22 138/82 95 09/20/20 02:56 36.7 C 113 H 30 H 128/74 91 09/20/20 01:54 110 H 22 91 09/20/20 01:45 108 H 28 H 87 L 09/20/20 01:40 36.9 C 110 H 30 H 81 L (1) Abdominal pain Abdominal location: lower abdomen, unspecified Qualified Code(s): R10.30 - Lower abdominal pain, unspecified
[2020-09-20] MEDS: hydrOXYzine HCl 10 MG TAB PO PRN (18:25)
[2020-09-20] MEDS: DOXEPIN HCL 50 MG CAPSULE PO SCH ×2 (20:55→22:27)
[2020-09-21] MEDS: metroNIDAZOLE 500 MG/100 ML BAG IV SCH ×3 (00:46→18:37)
[2020-09-21] MEDS ORDERED: LORazepam 0.25 MG/0.5 ML VIAL IV STA (01:23)
[2020-09-21] MEDS: D5W AND NSS 1,000 ML IV SCH ×2 (05:03→14:30)
[2020-09-21 07:15] LABS: Mean Corpuscular Hemoglobin 35.7 pg (25-34); Mean Corpuscular Hgb Conc 33.3 g/dL (32-36); Mean Corpuscular Volume 107.1 fL (80-100); Mean Platelet Volume 10.6 fL (7.4-10.4); Platelet Count 140 K/uL (130-400); RDW Coefficient of Variation 13.5 % (11.5-14.5); RDW Standard Deviation 53.9 fL (36.4-46.3); Red Blood Count 3.64 M/uL (4.7-6.1); White Blood Count 12.36 K/uL (4.8-10.8)
[2020-09-21 07:27] LABS: Albumin Level 2.2 gm/dl (3.4-5.0); Calcium 7.7 mg/dl (8.5-10.1); Est GFR (African American) 125.4; Est GFR (Non-African American) 108.2; Potassium 3.6 mmol/L (3.5-5.1)
[2020-09-21 07:30] LABS: Albumin Globulin Ratio 0.5 (0.9-2); Bilirubin,Total 2.7 mg/dl (0.2-1); Globulin 4.1 gm/dl (2.5-4.0); Total Protein 6.3 gm/dl (6.4-8.2)
[2020-09-21] MEDS: cloNIDine HCL 0.1 MG TAB PO SCH ×3 (08:37→20:30)
--- NOTE | 2020-09-21 08:53 | Gastroenterology Progress Note ---
Date of Service September 21, 2020 Assessment & Plan (1) Colonic obstruction: Pt is a 40 y/o male who presented w constipation, abd pain, distension, CT abd/pelvis showed signs of upstream colon dilation w transition point on descending colon concerning for obstruction. Hx of ETOH abuse, last consumption of ETOH was 05/2020, on Doxepin for insomina, Naltrexone for ETOh withdrawals. Denies narcotics. He is passing flatus and having loose BMs. KUB yesterday showed signs of ileus instead of obstruction. Relistor given. Sepsis workup initiated yesterday. WBC improving after antibx started; blood and urine culture pending - F/U urine and blood culture - Repeat KUB today - Bowel rest, IVF support. If n/v, pls place NGT for decompression - Surgery following Admission and Anticipated Discharge Date Admission Date: September 19, 2020 Supervising Physician Co-Signing Physician Notes Late entry: Patient was seen and examined on 09/21 with NATALIA Ness whose note reflects our findings and plan. Bowel regimen in place. Subjective Pt continues to pass flatus and having multiple loose stools. Denies abd pain, n/v. Does still appear tachypnic & is tachycardic. He did receive Ativan last night for anxiety per RN but has worsening anxiety. Review of Systems Review of Systems: All systems reviewed & are unremarkable except as noted in HPI & below Physical Exam Constitutional: WD/WN, vitals as above well groomed, cooperative and comfortable Eyes: PERRL, conjunctivae normal, anicteric sclerae ENMT: external ear and nose normal, oropharynx normal Respiratory: Auscultation: + diminished lung sounds (mild on bilateral bases ) tachypnic Cardiovascular: RRR, no murmur, no edema Gastrointestinal (Abdomen): Inspection/Auscultation: + abdomen distended and normal bowel sounds Percussion/Palpation: abdomen nontender Skin: no rashes, warm and dry no jaundice Psychiatric: A+Ox3, euthymic affect Lymphatic: no lymphedema Results & Data ([facility]) Vital Signs (Past 12 Hours) Vital Signs Temp Pulse Pulse Resp BP BP Pulse Ox 09/21/20 08:11 37.5 C 116 H 22 130/84 91 09/21/20 05:10 36.9 C 120 H 18 130/56 L 93 09/20/20 23:51 122 H 09/20/20 23:00 36.6 C 109 H 18 129/84 90
--- NOTE | 2020-09-21 09:10 | XRay Report ---
KUB HISTORY: Follow up study in a patient with abdominal distention and reported ileus re-eval ileus COMPARISON: KUB 09/20/2020 FINDINGS: Persistent gaseous distention of the large and small bowel which has not significantly bennett ged. Large bowel loops measure up to 8.9 cm, previously 8.6 cm. Small bowel loops measure up to appro ximately 3.7 cm, previously 3.8 cm. No renal calculi. No ureteral calculi. No pneumoperitoneum or pn eumatosis. No fracture. IMPRESSION: Persistent gaseous distention of both large and small bowel suggestive of ileus. Continued follow-up recommended. ACT 112: Negative or not required by law. The above report was generated using voice recognition software. It may contain grammatical, syntax o r spelling errors. Electronically signed by: Jean Spain M.D. 09/21/2020 9:09 AM
[2020-09-21] MEDS ORDERED: cefTRIAXone SODIUM 2,000 MG in DEXTROSE 5% 50 ML IV SCH (09:30)
--- NOTE | 2020-09-21 09:36 | Surgery Progress Note ---
Date of Service September 21, 2020 Assessment & Plan (1) Abdominal pain: Patient started on Flagyl yesterday and Ceftriaxone today. WBC down to 12 from 23 and patient afebrile He remains tachycardic and requiring supplemental oxygen From an abdominal standpoint GI has ordered pt relistor and he is having + gas/BM's. He has intermittent nausea, no vomiting nor pain KUB today showing persistent gaseous distention of the small and large bowel consistent with ileus. He is somewhat distended still Would continue current supportive care for now. NGT if develops worsening n/v No plans for surgical intervention at this time as above.. feeling better. +multiple bms. no surgical intervention at this time. will sign off...please call if any questions or concerns. Admission and Anticipated Discharge Date Admission Date: September 19, 2020 Subjective Patient states he is feeling somewhat better from an abdominal standpoint. He is passing flatus and having BM's. No vomiting, but says he feels intermittently nauseated. Is not very hungry, but says he could drink something. He is wearing an oxymask and says he feels somewhat SOB at times. Physical Exam Physical Exam: awake Respiratory: some conversational dyspnea noted Gastrointestinal (Abdomen): Inspection/Auscultation: + abdomen distended Percussion/Palpation: abdomen soft; abdomen nontender Results & Data ([facility]) Vital Signs (Past 12 Hours) Vital Signs Temp Pulse Pulse Resp BP BP Pulse Ox 09/21/20 08:11 37.5 C 116 H 22 130/84 91 09/21/20 05:10 36.9 C 120 H 18 130/56 L 93 09/20/20 23:51 122 H 09/20/20 23:00 36.6 C 109 H 18 129/84 90 PG Care Time/CCT Total # of Minutes Spent Total Time Spent with Patient: Total time spent is greater than 50% in co ordination of care (as documented) at patient's floor/unit and/or counseling patient: Coding Level of Care Code 63963 Subseq Hosp Care Lvl 2 Diagnoses Abdominal pain R10.30 Abdominal location: lower abdomen, unspecified (1) Abdominal pain Abdominal location: lower abdomen, unspecified Qualified Code(s): R10.30 - Lower abdominal pain, unspecified
[2020-09-21] MEDS ORDERED: POTASSIUM PHOS 3 MMOL/1 ML INFUSION IV STA (11:12)
[2020-09-21] MEDS: PANTOprazole 40 MG in SYRINGE 0 ML IV SCH (11:29)
[2020-09-21] MEDS ORDERED: POTASSIUM PHOSPHATE 15 MMOL in DEXTROSE 5% 250 ML IV ONE (11:30)
[2020-09-21] MEDS ORDERED: D5W AND LACTATED RINGERS 1,000 ML IV SCH (12:00)
[2020-09-21] MEDS: KETOROLAC TROMETHAMINE 15 MG/ML VIAL IV PRN (14:52)
--- NOTE | 2020-09-21 17:48 | Hospitalist Progress Note ---
Date of Service September 21, 2020 Assessment & Plan (1) Colonic obstruction: (2) Abdominal pain: Present on admission with abdominal discomfort mostly due to constipation CT scan showed narrowing of the distal one third of the descending colon with mild upstream colonic dilation with air-fluid levels KUB showed minimal colonic fecal retention. There is gaseous distention of the small bowel and colon. The appearance favors an ileus. Gastro on board Bisacodyl 10mg MA given, may follow with tap water enema if no BM produced Continue bowel rest by keeping NPO If develops any N/V, consider to place an NGT for decompression Surgery on board, continue conservative management Abdominal pain improves Continue Rocephin and IV Flagyl due to elevate WBC and possible infection Elevated liver function tests. Possible related to alcohol abuse AST decreased from 163 to 82 --> 50 and ALk phos decreased from 355 to 256 --> 201 Continue monitor Liver enzymes Elevated WBC Elevated Lactate Possible related to sepsis (Elevated WBC and Tachycardia ) Procalcitonin wnl Continue IVF and IV abd with Rocephin and Flagyl started this morning Blood cx collected today - no growth WBC trending down History of Alcohol abuse He said that he drank once since rehab back in 06/2019 Counseling on alcohol cessation Pt continues declines drinking alcohol despite his HR continues to elevate He said that he is a very anxious person Multiples times I asked him if he drank alcohol in the last few days to tell me because if he goes to DT that can cause him to , but he continue declining Reviewed his meds to see if he was on any Benzo that he could have been withdrawal from that Depression Continue doxepin and Clonidine Stable Hypokalemia K 3.4 on admission Potassium 3.6 today Will replaced K to keep it above 4 Continue monitor BMP Gastroesophageal reflux disease Continue proton pump inhibitor. DVT px on SCDs Disposition Will continue monitor closely Admission and Anticipated Discharge Date Admission Date: September 19, 2020 Subjective Pt was seen and examined for follow up for abdominal distended. Lying in bed with mild respiratory distress but pt said that he is feeling ok He displayed symptoms of alcohol withdrawal due to tachycardia and drowsiness, but pt continues to insist that he did not have any alcohol in the last 2 months He said that he thinks he probably drank his last alcohol drink in June I insisted that if he lied to me that he goes to DT that can cause him to with complications of DT He said that he is abdominal pain is improved and continues to have bowel movement Denies any chest pain, palpitation, dizziness and fever Physical Exam Physical Exam: General- No acute distress Head- atraumatic Eyes- PERRL, EOMI, ENT- oropharynx clear, dry mouth Neck- supple, no JVD Lungs- clear to auscultation Heart- regular rhythm; no murmur Abdomen- normal bowel sounds, +mild tender, +abdominal distention Extremities- no calf tenderness Neuro- alert, oriented x 3; PERRL, EOMI; no facial palsy; no dysarthria Skin- warm & dry Results & Data Results & Data ([facility] [place]) Vital Signs (Past 12 Hours) Vital Signs Temp Pulse Pulse Resp BP BP Pulse Ox 09/21/20 15:49 36.8 C 100 H 18 127/87 91 09/21/20 11:42 36.9 C 112 H 22 141/88 H 91 09/21/20 10:15 120 H 26 H 92 09/21/20 10:00 118 H 28 H 88 L 09/21/20 08:11 37.5 C 116 H 22 130/84 91 09/21/20 08:00 115 H (1) Abdominal pain Abdominal location: lower abdomen, unspecified Qualified Code(s): R10.30 - Lower abdominal pain, unspecified
[2020-09-21] MEDS: DOXEPIN HCL 50 MG CAPSULE PO SCH (20:31)
--- NOTE | 2020-09-21 21:53 | Communication Note ---
Date of Service: September 21, 2020 Overnight developments 09/21, 9:50 PM Made aware by RN of patient episodic disorientation, episodic labored breathing. Speech somewhat slurred as per RN. had called in to notify staff that she found empty bottles of alcohol at home and would not be surprised if patient still drinking prior to confinement. Patient denies chest pain, unusual cough symptoms. Transient S OB as per patient. CXR as per my interpretation congestion CT head initially read: No ICH, mass-effect or edema. No evidence of acute cortical stroke. Serum ammonia 42.2 AP Shortness of breath secondary to pulmonary congestion/fluid overload encephalopathy Encephalopathy 2 alcohol withdrawal, possible hepatic encephalopathy (chronic liver disease on CT abdomen pelvis imaging) DC IVF Lasix, nebs stat DIA S, DT precautions Lactulose trial 09/21, 11 PM Patient noted to be sedated, tachypneic with shallow respiration as per RN. Cough symptoms as per RN. O2 sats later 94 on 2 L as per RN. AP Hypoxemic respiratory failure Possible aspiration Supplemental O2 Ertapenem Aspiration precautions Solu-Medrol, nebs 1 dose ICU provider requested to evaluate patient for ICU transfer for closer monitoring given clinical deterioration. Patient updated of developments over the phone. Will relay to AM provider.
[2020-09-21 22:44] LABS: Base Excess ABG -1.8 mEq/L (-9-1.8); HCO3 ABG 20 mmol/L (19-24); PCO2 ABG 28 mmHg (35-46); PO2 ABG 61 mmHg (80-95); pH ABG 7.48 (7.35-7.45)
[2020-09-21 22:46] LABS: Allen Test Pos (Pos)
[2020-09-21] MEDS ORDERED: LORazepam 1 MG/2 ML VIAL IV PRN (22:50)
[2020-09-21] MEDS ORDERED: GABAPENTIN 1200MG ALCOHOL WITHDRAWAL LOAD PO STA (22:50)
[2020-09-21] MEDS ORDERED: ATIVAN IV ALCOHOL WITHDRAWL IV PRN (22:50)
[2020-09-21] MEDS ORDERED: LORazepam 3 MG/6 ML VIAL IV PRN (22:50)
[2020-09-21] MEDS ORDERED: ALBUT/IPRATROP 3MG/0.5MG NEB 3 ML VIAL NEB STA (22:50)
[2020-09-21 23:02] LABS: Calcium 7.7 mg/dl (8.5-10.1); Creatinine Clr Calc Pharmacy 153.9 ml/min; Est GFR (African American) 132.8; Est GFR (Non-African American) 114.6; Potassium 3.4 mmol/L (3.5-5.1)
[2020-09-21] MEDS ORDERED: FUROSEMIDE 20 MG in SYRINGE 0 ML IV ONE (23:15)
[2020-09-21] MEDS ORDERED: GABAPENTIN 600 MG TAB PO ONE (23:15)
[2020-09-21] MEDS ORDERED: THIAMINE HCL 100 MG in SYRINGE 9 ML IV ONE (23:15)
[2020-09-21 23:40] LABS: Albumin Level 2.2 gm/dl (3.4-5.0); Magnesium 2.2 mg/dl (1.8-2.4)
[2020-09-21] MEDS ORDERED: POTASSIUM CHLORIDE CRTAB 20 MEQ TABCR PO ONE (23:45)
[2020-09-21] MEDS ORDERED: LACTULOSE SYRUP 30 GM/45 ML UDP PO ONE (23:45)
[2020-09-22] MEDS ORDERED: cloNIDine HCL 0.1 MG TAB PO ONE (00:45)
[2020-09-22] MEDS ORDERED: XOPENEX/ATROVENT 1.25mg/0.5MG NEB COMBO NEB STA (01:22)
[2020-09-22] MEDS ORDERED: LEVALBUTEROL 1.25MG/0.5ML NEB INH STA (01:23)
[2020-09-22] MEDS ORDERED: IPRATROPIUM BROMIDE NEB SOLN 0.02% 2.5 ML VIAL INH STA (01:23)
[2020-09-22] MEDS ORDERED: FUROSEMIDE 20 MG in SYRINGE 0 ML IV ONE ×2 (01:30→03:15)
[2020-09-22] MEDS ORDERED: methylPREDNISolone 20 MG in SYRINGE 0 ML IV ONE (01:30)
[2020-09-22] MEDS: ERTAPENEM SODIUM 1,000 MG in SODIUM CHLORIDE 0.9% 50 ML IV SCH (01:55)
[2020-09-22] MEDS: LORazepam 2 MG/4 ML VIAL IV PRN ×2 (02:26→02:30)
[2020-09-22] MEDS ORDERED: ICU PROTOCOL FOR HYPERGLYCEMIA PRN (02:27)
[2020-09-22] MEDS ORDERED: ACETAMINOPHEN 65 ML IV ONE (02:29)
--- NOTE | 2020-09-22 02:30 | Critical Care Consultation ---
Date of Consultation September 22, 2020 Assessment & Plan (1) Admitted to intensive care unit: Reason Critically Ill: 40-year-old male who is currently hospitalized with colonic obstruction who is now with increasing agitation and altered mental status in the setting of concerns for alcohol withdrawal. Patient also with bilateral pulmonary infiltrates and concern for possible aspiration versus pulmonary edema. NEURO - * CAM ICU: Unable to assess * Alcohol withdrawal: * Patient unknown when last drink was had as he has been closet drinking. * In a discussion with the patient's , he received a DUI on 06/20/2019. Immediately after, the patient was brought to this institution and then ta alexey to [facility] where he spent 30 days. She reports that he had been clean up until May 2020. Her son caught him drinking in which she describes a "setback". She states that she was unaware that he had been drinking up until conversation over the last few days. Admittedly, she reports that now that she thinks about it, the patient has been snoring more than usual which is what he used to do when he drank. Additionally, she reports that she did scour the house and found bottles of coconut ROM, whiskey, vodka, and beer. She states that she would be unable to quantify his drinking quantity. * Unfortunately, the patient had increasing education over the last 24 hours. Additionally, the patient had hypertension and tachycardia. Patient was febrile on evaluation as well. Classically, the patient presents in delirium tremens with increasing agitation and requirement of benzodiazepines. * Patient initially responded fairly well to IV Ativan. Of concern, the patient has ongoing tachypnea and chest x-ray is concerning for bilateral infiltrative changes and possible aspiration pneumonia. * After failed attempts at noninvasive ventilatory support. Patient was intubated. Please see Pulm. * Will continue sedate with propofol while intubated. * Will obtain CT head for evaluation of underlying organic causes. CARDIAC/VASCULAR - * Tachycardia: * Compensatory and multifactorial in the setting of alcohol withdrawal as well as multifocal pneumonia versus pulmonary edema. * Hope that improvement in withdrawal with medication as well as intubation with increased oxygenation will show improvement. * Monitor on telemetry. RESPIRATORY - * Respiratory failure: * Secondary to multifocal pneumonia/pulmonary edema. * Apparently, there was concern for possible aspiration event. * Patient has been tachypneic for the last 24 hours. * Patient remains tachypneic with supplemental oxygen. * He is compensating well with his respiratory rate, however I am concerned given the need for sedation for alcohol withdrawal, the patient will have an impending poor airway. * Patient was noted to have a snoring/stridorous upper airway. Despite being on noninvasives with higher settings, the patient was not tolerating BiPAP and was not drawing great volumes. * Patient required emergent endotracheal intubation which was performed by anesthesia. Please see their note. * Will manage ventilator settings appropriately. * Will CT chest for further evaluation of infiltrative findings. GI/NUTRITION - * Colonic obstruction: * Resulting in constipation. Apparently, the patient has been having small bowel movements. * KUB concerning for ongoing insufflation of the colon. * Will repeat CT as the patient's abdomen is distended to evaluate for possible perforation. * Thankfully, laboratory assessment does not point towards this. * Prophylaxis: Famotidine RENAL/LYTES - * Hypokalemia: * Will replace appropriately. - * Joyce in place - Strict I&Os. ENDO - * No history of diabetes or thyroid disease * BSGs per unit protocol. ISS --> gtt per unit policy. HEME - * Stable H&H ID - * Multifocal pneumonia: * Concerns for possible aspiration. * Ertapenem in the penicillin allergic individual. * Previously on Rocephin and Flagyl. LINES/IV ACCESS - * PIVs x2 * ET tube * Joyce catheter * OG DVT PROPHYLAXIS - * Lovenox * SCDs I have personally spent 85 minutes of critical care time in the direct management of this patient. This is a life/limb threatening event. This includes time spent evaluating patient, direct bedside care, chart review, placing orders, interpretation of diagnostic studies, discussion with consultants, patient, and family members, as well as other required patient management activities. This time is exclusive of all separately billable procedures, and teaching time and separate from and in addition to any other critical care service time. Thank you for allowing us to participate in the care of this patient. Please refer to my attending physician's documentation for any further recommendations. (2) Colonic obstruction: (3) Abdominal pain: (4) Delirium tremens: Supervising Physician Co-Signing Physician Notes Patient seen and examined. Discussed with critical care SAUL. Agree with assessment and plan as noted. Please refer to my critical care addendum for additional details History of Present Illness Attending Physician: Candelario Mitchell MD History of Present Illness Patient is a 40-year-old male with a significant past medical history of GERD and alcohol abuse. Patient was admitted to this institution on 09/19 for concerns for constipation secondary to colonic obstruction. Patient had NG tube placed for decompression and had been doing well and having small bowel movements. Unfortunately, over the last 24 hours, the patient has had increasing anxiety and agitation. The patient did have a history of alcohol abuse in the past and had been in alcohol rehab and thought to be sober. Apparently, he relapsed in May of this past year. When the patient became more agitated, hospitalist did speak to the patient's and she informed staff that she had found bottles of liquor as well as beer at the house. Patient had received increasing doses of Ativan throughout the night and despite this, remained tachypneic. Patient received IV Lasix as chest x-ray was concerning for increasing pulmonary edema. Patient broadly covered with antibiotics including ertapenem. I was requested by hospitalist to evaluate the patient for transfer to ICU given ongoing agitation, tachypnea, hypoxia, etc. Upon assessment at bedside, the patient is alert, but somnolent after receiving IV Ativan. He is tachypneic. He is tachycardic. He becomes agitated with stimuli. He is unable to contribute to history of present illness. Allergies Allergy/AdvReac Type Severity Reaction Status Date / Time Penicillins Allergy Intermediate rash/sob Verified 09/19/20 01:54 Home Medications Medication Instructions Recorded Confirmed Type clonidine HCl 0.2 mg PO BID 09/19/20 09/19/20 History doxepin 100 mg PO HS 09/19/20 09/19/20 History naltrexone 50 mg PO UD 09/19/20 09/19/20 History Patient History Medical History Bronchitis Cough Dog bite GERD (gastroesophageal reflux disease) Pneumonia Thumb laceration Surgical History H/O hernia repair No pertinent past surgical history Family History Other Heart disease Lung disease Social History Smoking Status: Unknown if ever smoked Second Hand Exposure: No; Do You Dip or Chew Tobacco: No; Tobacco Cessation Education Requested by Patient: No Hx Alcohol Use: No Hx Substance Use: Yes (alcohol) Preferred Language: Romanian Communication Ability: Effective Beliefs That Will Affect Care: None marital status: Current Living Situation: Family current occupational status: employed Other Information That Helps Us Care for You: No Feels Safe at Home: No Is there a partner from a previous relationship who is making you feel unsafe now?: No Any Concerns about Your Family Situation: No Would You Like to Speak to Someone About Your Situation: No Safety Concerns: Feels Safe At This Time Assistive Devices: Oxygen - Continuous Review of Systems Review of Systems: Unobtainable due to cognitive status and Unobtainable due to reduced consciousness Physical Exam Physical Exam: VITAL SIGNS - Vital signs and nursing notes were reviewed. GENERAL - 40-year-old male appearing his stated age who is in moderate respiratory distress. Easily agitated. Somnolent at times. SKIN - Without rashes. HEAD - NC/AT. EYES - PERRL. Scleral icterus noted bilaterally. EARS - No deformities of external structures noted on gross examination bilaterally. NOSE - Midline and without cyanosis. MOUTH/OROPHARYNX - Without perioral cyanosis. Buccal mucosa pink and dry. NECK - Neck with FROM. Supple to palpation. No lymphadenopathy noted. No nuchal rigidity. LUNGS -tachypneic. Clear breath sounds noted with diminished breath sounds at the bases. Utilizing accessory muscles. CARDIAC - RRR with S1/S2. No murmur, rubs, or gallops appreciated. ABDOMEN - Abdominal contour distended without pulsations or visible masses. Slight TTP throughout. BS distant all four quadrants. Slight ascited noted. EXTREMITIES - No clubbing or peripheral cyanosis. No pretibial edema present. +3/5 radial and dorsalis pedis pulses palpated throughout. +5/5 strength noted in UE/LE bilaterally. NEUROLOGIC -no focal neurological deficits appreciated. PSYCH -agitated with stimuli. Sedate secondary to benzodiazepines. Results & Data Results & Data ([facility]) Vital Signs (Past 12 Hours) Vital Signs Temp Pulse Pulse Resp BP BP Pulse Ox 09/22/20 00:25 37.1 C 120 H 28 H 144/103 H 89 L 09/21/20 23:17 105 H 26 H 95 09/21/20 19:16 36.8 C 77 20 135/89 94 09/21/20 16:00 105 H 09/21/20 15:49 36.8 C 100 H 18 127/87 91 Coding Level of Care Code Critical Care 1st 30-74 mins Diagnoses Admitted to intensive care unit Z78.9 Colonic obstruction K56.609 Abdominal pain R10.30 Abdominal location: lower abdomen, unspecified Delirium tremens F10.231 Time Spent (min) 85 (1) Abdominal pain Abdominal location: lower abdomen, unspecified Qualified Code(s): R10.30 - Lower abdominal pain, unspecified
[2020-09-22 02:33] LABS: Basophils # (auto) 0.03 K/uL (0-0.2); Basophils % (auto) 0.2 %; Eosinophils # (auto) 0.16 K/uL (0-0.5); Eosinophils % (auto) 1.2 %; Hematocrit (blood only) 42.9 % (42-52); Hemoglobin 14.5 g/dL (14.0-18.0); Immature Granulocytes # (auto) 0.03 K/uL (0.00-0.02); Immature Granulocytes % (auto) 0.2 %; Lymphocytes # (auto) 1.44 K/uL (1.2-3.4); Lymphocytes % (auto) 11.1 %; Mean Corpuscular Hemoglobin 36.3 pg (25-34); Mean Corpuscular Hgb Conc 33.8 g/dL (32-36); Mean Corpuscular Volume 107.3 fL (80-100); Mean Platelet Volume 10.6 fL (7.4-10.4); Monocytes # (auto) 1.34 K/uL (0.11-0.59); Monocytes % (auto) 10.3 %; Neutrophils # (auto) 9.95 K/uL (1.4-6.5); Platelet Count 174 K/uL (130-400); RDW Coefficient of Variation 13.5 % (11.5-14.5); RDW Standard Deviation 53.3 fL (36.4-46.3); White Blood Count 12.95 K/uL (4.8-10.8)
[2020-09-22 02:50] LABS: iSTAT Allen Test Pass; iSTAT Art Bld Gas pCO2 Correct 37 mmHg (35-46); iSTAT Art Bld Gas pH Corrected 7.414 (7.35-7.45); iSTAT Arterial Blood Gas HCO3 24 meg/L (19-24); iSTAT Arterial Blood Gas pCO2 35 mmHg (35-46); iSTAT Arterial Blood Gas pH 7.44 (7.35-7.45); iSTAT Arterial Blood Gas pO2 71 mmHg (80-95); iSTAT Arterial Blood Gas pO2 C 79; iSTAT Carbon Dioxide 25 mmol/L (24-31); iSTAT Hematocrit 40 % (42-52); iSTAT Hemoglobin 13.6 g/dl (14.0-18.0); iSTAT Potassium 3.5 mmol/L (3.3-5.0); iSTAT Site R Radial; iSTAT Sodium 144 mmol/L (135-144)
[2020-09-22 02:57] LABS: Alanine Aminotransferase 25 U/L (12-78); Albumin Level 2.7 gm/dl (3.4-5.0); Aspartate Aminotransferase 59 U/L (15-37); BUN Creatinine Ratio 11.4 (10-20); Bilirubin Direct 2.6 mg/dl (0-0.2); Blood Urea Nitrogen 12 mg/dl (7-18); Calcium 7.6 mg/dl (8.5-10.1); Carbon Dioxide 27 mmol/L (21-32); Chloride 113 mmol/L (98-107); Creatinine Clr Calc Pharmacy 112.8 ml/min; Est GFR (African American) 106.6; Glucose 92 mg/dl (70-99); Magnesium 2.1 mg/dl (1.8-2.4); Potassium 3.4 mmol/L (3.5-5.1); Sodium 144 mmol/L (136-145)
[2020-09-22 03:00] LABS: Alkaline Phosphatase 230 U/L (45-117); Bilirubin,Total 3.6 mg/dl (0.2-1); NT Pro B Type Natriuretic Pept 233 pg/ml (0-450); Phosphorus 1.2 mg/dl (2.5-4.9); Total Protein 7.4 gm/dl (6.4-8.2); Troponin I < 0.015 ng/ml (0-0.045)
[2020-09-22] MEDS ORDERED: POTASSIUM CHLORIDE / WTR 10 MEQ/100 ML PLCT IV ONE (03:16)
[2020-09-22] MEDS ORDERED: POTASSIUM PHOS 3 MMOL/1 ML INFUSION IV STA (03:16)
[2020-09-22] MEDS ORDERED: RACEPINEPHRINE 2.25% NEBU SOLN 0.5 ML VIAL NEB STA (03:44)
[2020-09-22] MEDS ORDERED: POTASSIUM PHOSPHATE 24 MMOL in SODIUM CHLORIDE 0.9% 500 ML IV ONE (03:45)
[2020-09-22] MEDS ORDERED: RAPID SEQUENCE INDUCTION BAG ONE (03:48)
[2020-09-22] MEDS ORDERED: DEXAMETHASONE SOD INJ 10 MG/ML VIAL IV ONE (03:48)
[2020-09-22] MEDS ORDERED: RACEPINEPHRINE 2.25% NEBU SOLN 0.5 ML VIAL ONE (03:52)
[2020-09-22] MEDS ORDERED: PROPOFOL IV EMULSION 10 MG/ML 100 ML VIAL IV ONE (03:57)
[2020-09-22] MEDS ORDERED: dexAMETHasone 10 MG in SYRINGE 0 ML IV ONE (04:00)
[2020-09-22 04:07] LABS: Influenza A virus by PCR Negative (Neg); Influenza B virus by PCR Negative (Neg); RSV by PCR Negative (Neg); SARS CoV2 RNA(COVID-19) InHosp NEGATIVE (Negative)
[2020-09-22] MEDS: propofoL 1,000 MG/100 ML VIAL IV SCH ×2 (04:15→08:58)
[2020-09-22] MEDS ORDERED: PROPOFOL BOLUS FROM BAG IV PRN (04:26)
[2020-09-22] MEDS ORDERED: STAT IV Infusion **Titration per Protocol STA ×2 (04:26→08:39)
[2020-09-22] MEDS ORDERED: fentaNYL DRIP 1,250 MCG/250 ML BAG IV SCH (04:30)
--- NOTE | 2020-09-22 04:31 | Procedure Note ---
Procedure Note Date of Service September 22, 2020 I was called to assist with intubating the patient by Jona in the ICU. The patient is a 40 year old male who is in respiratory distress and not responding to voice. He has developed a stridor and is not ventilating well with Bipap. Covid 19 test is negative. The patient has a history of alcohol abuse and has elevated LFTs. Vital signs include SpO2 91, BP 150s/100s, HR 120s. On exam the patient is not responding to commands. He has a hackett. I was unable to perform an airway exam due to the Bipap and the patient being unresponsive. The patient has an upper airway stridor. Heart was tachycardic. Lungs had decreased breath sounds bilaterally. Intubation Note Indication for Intubation: Respiratory distress Consent: Emergency procedure, implied consent Time Out: A time-out was performed verifying correct patient with two identifiers, procedure, site, positioning, and special equipment. Monitors Attached: EKG NIBP Pulse Oximetry Induction Medications: 240 mg Propofol 100 mcg Fentanyl Paralytic Medication: 140 mg Succinylcholine Intubation Technique: Patient preoxygenated on Bipap, Difficult Mask Ventilation due to hackett. Airway Suctioned Equipment: Glidescope #4 Grade View: 1, large amount of thick sputum in airway Endotracheal Tube: 7.5 ETT Procedure Details: ET tube was placed atraumatically on one attempt. Balloon was inflated and the tube was secured at 24 cm. Placement was confirmed by positive CO2 detection and auscultation. Post-procedure: The patients vital signs were monitored throughout the procedure. His SpO2 briefly dropped into the 80s after during manual ventilation and the intubation but quickly duy to the mids 90s after intubation. His SBP was 150s preinduction with HR in the 120s. Post intubation SBP with HR in the 120s. He was given phenylephrine 100 mcg. Patient tolerated the procedure well without apparent complications. Post placement CXR ordered by ICU team who will follow. Coding
[2020-09-22 04:57] LABS: INR 1.4 (0.9-1.1); Prothrombin Time 13.8 Seconds (9.0-12.0)
[2020-09-22] MEDS ORDERED: OPTIRAY 320 125ml IV ONE (05:31)
[2020-09-22 05:48] LABS: iSTAT Allen Test Pass; iSTAT Art Bld Gas pCO2 Correct 37 mmHg (35-46); iSTAT Arterial Blood Gas HCO3 23 meg/L (19-24); iSTAT Arterial Blood Gas pCO2 36 mmHg (35-46); iSTAT Arterial Blood Gas pH 7.41 (7.35-7.45); iSTAT Arterial Blood Gas pO2 90 mmHg (80-95); iSTAT Arterial Blood Gas pO2 C 94; iSTAT Carbon Dioxide 24 mmol/L (24-31); iSTAT FiO2 80 %; iSTAT Hematocrit 36 % (42-52); iSTAT Hemoglobin 12.2 g/dl (14.0-18.0); iSTAT Potassium 4.3 mmol/L (3.3-5.0); iSTAT Site R Radial; iSTAT Sodium 143 mmol/L (135-144)
[2020-09-22] MEDS ORDERED: GABAPENTIN 600 MG TAB PO SCH ×2 (06:00→20:00)
--- NOTE | 2020-09-22 06:54 | XRay Report ---
XR chest 1V portable CLINICAL HISTORY: Shortness of breath. Respiratory distress COMPARISON STUDY: 09/20/2020 FINDINGS: The cardiac and mediastinal contours remain stable. There are multifocal airspace opacities suspicious for multifocal pneumonia. Trace pleural effusions cannot be excluded.[ IMPRESSION: Multifocal airspace opacities suspicious for a multifocal pneumonia. Clinical and radiogr aphic follow-up is recommended. ACT 112: Negative or not required by law. Electronically signed by: Alexandro Richards M.D. 09/22/2020 6:52 AM
--- NOTE | 2020-09-22 06:59 | CT Scan Report ---
CT head/brain wo con CLINICAL HISTORY: slurred speech POSSIBLE ACUTE STROKE COMPARISON STUDY: 05/21/2019 TECHNIQUE: Axial CT of the brain is performed from the vertex to the skull base. IV contrast was not administered for this examination. A dose lowering technique was utilized adhering to the principles of ALARA. CT DOSE: FINDINGS: No intra or extra-axial mass lesions are visualized. There is no CT evidence of acute cortical infarc tion. There is no evidence of midline shift. There is no acute hemorrhage. No calvarial fractures ar e visualized. There is no evidence of pathologic ventricular dilatation. There is no evidence of acute sinusitis IMPRESSION: No acute intracranial findings ACT 112: Negative or not required by law. Electronically signed by: Alexandro Richards M.D. 09/22/2020 6:58 AM
[2020-09-22] MEDS ORDERED: ENOXAPARIN INJ 40 MG/0.4 ML SYR SQ SCH (07:00)
--- NOTE | 2020-09-22 07:01 | XRay Report ---
XR chest 1V portable CLINICAL HISTORY: tachypnea, cough COMPARISON STUDY: 09/21/2020 FINDINGS: The cardiac and mediastinal contours remain stable. There are multifocal airspace opacities consistent with a multifocal pneumonia. The findings remain essentially stable[ IMPRESSION: Persistent multifocal airspace opacities suspicious for a multifocal pneumonia ACT 112: Negative or not required by law. Electronically signed by: Alexandro Richards M.D. 09/22/2020 7:00 AM
--- NOTE | 2020-09-22 07:09 | CT Scan Report ---
CT ANGIOGRAM OF THE CHEST CLINICAL HISTORY: Shortness of breath. Possible pulmonary embolism COMPARISON STUDY: Chest x-ray dated 09/22/2020 TECHNIQUE: Following the IV administration of 116 mL of Optiray-320, CT angiogram of the thorax was p erformed from the thoracic inlet to the lung bases utilizing the pulmonary embolus protocol. Images a re reviewed in the axial, sagittal, and coronal planes. IV contrast was administered without complica tion. MIP imaging was performed. A dose lowering technique was utilized adhering to the principles o f ALARA. CT DOSE: FINDINGS: There is hepatic steatosis. No pathologically enlarged axillary mediastinal or hilar lymph nodes were visualized. There was no evidence of thoracic aortic dilatation. There were no pulmonary artery filling defects to indicate acute pulmonary embolism. There is a small left pleural effusion and trace right pleural effusion. There was no evidence of focal pulmonary consolidation. There are multifocal groundglass opacities an d areas of parenchymal consolidation consistent with a multifocal pneumonia. There is an endotracheal tube positioned 3 cm above the main. IMPRESSION: 1. No evidence of acute pulmonary embolism 2. Multifocal airspace opacities indicative of a multifocal pneumonia 3. Small left pleural effusion and trace right pleural effusion 4. Hepatic steatosis ACT 112: Negative or not required by law. Electronically signed by: Alexandro Richards M.D. 09/22/2020 7:07 AM
[2020-09-22] MEDS ORDERED: fentaNYL citrate 100 MCG/2 ML VIAL IV ONE (07:15)
[2020-09-22] MEDS ORDERED: SUCCINYLCHOLINE CHLORIDE 20 MG/ML 10 ML VIAL IV ONE (07:15)
[2020-09-22] MEDS ORDERED: ETOMIDATE 2 MG/ML 20 ML VIAL IV ONE (07:15)
[2020-09-22] MEDS ORDERED: MIDAZOLAM HCL 5 MG/ML VIAL IV ONE (07:15)
--- NOTE | 2020-09-22 07:30 | XRay Report ---
XR KUB/Abdomen 1 view CLINICAL HISTORY: abd distention COMPARISON STUDY: 09/21/2020 FINDINGS: A single erect view the abdomen is provided for interpretation. The exam that was performed portably. No free air is visualized on the provided image. There is persistent gaseous distention of colon and small bowel loops. The right lateral abdomen and pelvis was not included on this study. IMPRESSION: Technically limited study. Persistent gaseous distention of bowel. No free air identifie d ACT 112: Negative or not required by law. Electronically signed by: Alexandro Richards M.D. 09/22/2020 7:28 AM
--- NOTE | 2020-09-22 07:32 | CT Scan Report ---
CT soft tissue neck w con CT DOSE: CLINICAL HISTORY: Bilateral neck swelling TECHNIQUE: Helical images were acquired during intravenous administration of 116 cc of Optiray 320. A dose lowering technique was utilized adhering to the principles of ALARA. COMPARISON STUDY: None. FINDINGS: There are multifocal pulmonary airspace opacities, consistent with a multifocal pneumonia. There are bilateral pleural effusions left greater than right. Endotracheal tube is visualized. No thyroid masses are visualized. No salivary gland masses are visualized. There are no pathologically enlarged cervical lymph nodes. No necrotic nodes are evident. There are no fluid collections suspicious for abscess. There is no evidence of airway compromise. No mucosal space masses are visualized. IMPRESSION: 1. Indwelling endotracheal tube 2. Multifocal pulmonary airspace opacities consistent with a multifocal pneumonia 3. No pathologic neck masses identified. No evidence of pathologic adenopathy ACT 112: Negative or not required by law. Electronically signed by: Alexandro Richards M.D. 09/22/2020 7:31 AM
--- NOTE | 2020-09-22 08:00 | XRay Report ---
XR chest 1V portable CLINICAL HISTORY: Pneumonia COMPARISON STUDY: 09/22/2020 FINDINGS: There are multifocal pulmonary airspace opacities consistent with a multifocal pneumonia. T he findings are slightly progressive when compared the prior study. There are low lung volumes.[There is no pneumothorax. IMPRESSION: Multifocal airspace opacities consistent with a multifocal pneumonia. The findings are sl ightly progressive when compared the prior study ACT 112: Negative or not required by law. Electronically signed by: Alexandro Richards M.D. 09/22/2020 7:59 AM
--- NOTE | 2020-09-22 08:15 | CT Scan Report ---
CT SCAN OF THE ABDOMEN AND PELVIS WITH IV CONTRAST CLINICAL HISTORY: Constipation. Abdominal distention. COMPARISON STUDY: Abdominal CT dated 09/19/2020. TECHNIQUE: Following the IV administration of 116 cc of Optiray 320, CT scan of the abdomen and pelv is is performed from the lung bases to the proximal femora. Images are reviewed in the axial, sagitta l, and coronal planes. IV contrast was administered without complication. A dose lowering technique w as utilized adhering to the principles of ALARA. The examination is degraded by motion artifact, as w ell as by streak artifact from the arms which could not be elevated above the abdomen. CT DOSE: 2816.27 mGy.cm FINDINGS: Lung bases: The heart is normal in size and without pericardial effusion. There are trace pleural eff usions with bibasilar consolidation. A small hiatal hernia is noted. Liver: The contrast-enhanced liver is enlarged, measuring 21.9 cm in length. The liver demonstrates d iffusely diminished attenuation consistent with severe hepatic steatosis. Additional foci of geograph ic steatosis are seen throughout the liver, greatest adjacent to the gallbladder fossa. There is no i ntrahepatic biliary ductal dilatation. The hepatic veins and portal veins are patent. Gallbladder: Hyperdense material suggests within the gallbladder lumen, likely represent vicariously excreted contrast. Spleen: Normal in size and attenuation. Pancreas: Mildly atrophic and grossly unremarkable. Adrenal glands: Unremarkable. Kidneys: The contrast enhanced kidneys are normal in size and without hydronephrosis. The kidneys enh ance symmetrically. Abdominal vasculature: The abdominal aorta is normal in course and caliber. Bowel: The right colon is mildly distended and filled with liquid stool. Mild wall thickening is sugg ested throughout the colon with faint pericolonic infiltration. Additionally, there are mildly disten ded and fluid-filled loops of small bowel which measure up to 3 cm diameter. There is no evidence of high-grade obstruction, and the appearance suggest a nonspecific enterocolitis. Ileus is not excluded . The appendix is well-visualized and normal. There is mild sigmoid diverticulosis without CT eviden ce of acute diverticulitis. Peritoneum: There is a small volume of abdominopelvic ascites. No intraperitoneal free air is identif ied. Lymphadenopathy: None. Pelvic viscera: The bladder is decompressed around a Joyce catheter and is not well evaluated. The pr ostate and seminal vesicles are normal as imaged. Skeletal structures: No lytic or blastic lesions are seen. IMPRESSION: 1. Streak and motion degraded examination. 2. Trace pleural effusions with bibasilar consolidation. 3. Findings suggest a nonspecific enterocolitis. Clinical correlation will be required. 3. There is no evidence of high-grade bowel obstruction. Mild ileus is not excluded. 4. Hepatomegaly and severe hepatic steatosis. 5. Small volume of abdominopelvic ascites. 6. Additional findings as above. ACT 112: Negative or not required by law. Electronically signed by: Jayme Kenney M.D. 09/22/2020 8:13 AM
[2020-09-22] MEDS: FAMOTIDINE 20 MG in SYRINGE 3 ML IV SCH ×2 (08:19→20:53)
[2020-09-22] MEDS: FOLIC ACID 1 MG TAB PO SCH ×2 (08:20→10:28)
[2020-09-22] MEDS: cloNIDine HCL 0.1 MG TAB PO SCH (08:20)
--- NOTE | 2020-09-22 08:24 | Communication Note ---
Date of Service: September 22, 2020 Critical care attending supplemental note. Patient was seen and examined. Please refer to the critical care SAUL note for complete details. 40-year-old male admitted with possible colonic obstruction versus ileus. He has been managed conservatively alcohol use and there was concern about alcohol withdrawal. He was transferred down to the ICU yesterday with increasing agitation requiring higher dose of benzodiazepines and eventually required intubation mechanical ventilation. He is on antibiotics for presumed abdominal process. His white count has been decreasing. On exam the patient is intubated and sedated. Was reactive. Sclera anicteric. Laboratory studies were reviewed and been well-documented in the care note. Imaging studies were independently reviewed. Chest x-ray from today patchy parenchymal opacities volumes. His initial chest x-ray from 09 20 did not demonstrate these parenchymal infiltrates but did show suggestion of an elevated diaphragm versus a subpulmonic effusion. We will continue to aggressively treat for alcohol withdrawal. He is currently on propofol. This should be adequate to cover alcohol-related seizures. We will discontinue his Klonopin. Discontinue Catapres. Can transition to Precedex. Will discontinue morphine and gabapentin at this point time. Continue thiamine folate but will transition to high-dose thiamine. Will discontinue morphine, Neurontin. Continue lactulose. Check sputum culture. Continue ertapenem for now. Check BNP and echocardiogram for potential alcoholic cardiomyopathy. Hold diuresis for now. Follow INR. May need repeat imaging and input from GI and surgery. Coding Level of Care Code Critical Care gabriel addt'l 30 min Time Spent (min) 45 Comment 45 min additional CC time
[2020-09-22] MEDS: DEXMEDETOMIDINE HCL 200 MCG in SODIUM CHLORIDE 0.9% 48 ML IV SCH ×4 (08:58→22:52)
[2020-09-22] MEDS ORDERED: ERTAPENEM CONSULT ACTIVE PRN (09:00)
[2020-09-22] MEDS ORDERED: MULTIVITAMIN TAB PO SCH (09:00)
[2020-09-22] MEDS ORDERED: LACTULOSE SYRUP 20 GM/30 ML UDC PO SCH (09:00)
[2020-09-22] MEDS ORDERED: THIAMINE HCL 100 MG TAB PO SCH (09:00)
[2020-09-22] MEDS ORDERED: THIAMINE HCL 100 MG in SYRINGE 9 ML IV ONE (10:00)
[2020-09-22] MEDS ORDERED: bisacodyL 10 MG SUPP PR ONE (10:25)
[2020-09-22] MEDS: MULTIVITAMIN CHEWABLE TAB PO SCH (10:28)
--- NOTE | 2020-09-22 10:34 | Gastroenterology Progress Note ---
Date of Service September 22, 2020 Assessment & Plan (1) Colonic obstruction: Pt is a 40 y/o male who presented w constipation, abd pain, distension, CT abd/pelvis showed signs of upstream colon dilation w transition point on descending colon concerning for obstruction. Hx of ETOH abuse, last consumption of ETOH was 05/2020, on Doxepin for insomina, Naltrexone for ETOh withdrawals. Denies narcotics. He was transferred to ICU and placed on ventilator for suspected ETOH withdrawals. Still having loose stools. CT abd/pelvis w contrast showed no bowel obstruction or free air. - Avoid Lactulose as may cause further abd distension. - Repeat Relistor injection today and then every 2 days if still having ileus. Bisacodyl 10mg DC today - KUB daily until ileus resolved - Replete and correct electrolytes. Aim for goal K >4 to promote peristalsis - Sepsis & ETOH withdrawal managements per primary and ICU team - Pls recall GI prn Admission and Anticipated Discharge Date Admission Date: September 19, 2020 Supervising Physician Co-Signing Physician Notes I have personally seen and examined the patient with NATALIA Hoffman. Her note reflects my exam and findings. I agree with her impression and plan. Cont. current care and treating withdrawal. Sd Bowie M.D. Subjective Pt tranferred to ICU last night for suspected ETOH withdrawals, currently on ventilator. Was having liquid stools. CT abd/pelvis w contrast showed no signs of bowel obstruction. Loose stools seen in small bowels, ileus likely Review of Systems Review of Systems: Unobtainable due to endotracheal tube Physical Exam Constitutional: comfortable and + mechanically ventilated ENMT: external ear and nose normal, oropharynx normal Respiratory: Auscultation: + diminished lung sounds (mild on bilateral bases ) mechanically ventilated Cardiovascular: Rate/Rhythm: regular rate and regular rhythm Gastrointestinal (Abdomen): Inspection/Auscultation: + abdomen distended and + hypoactive bowel sounds Skin: no rashes, warm and dry no jaundice Psychiatric: Sedated Lymphatic: no lymphedema Results & Data ([facility]) Vital Signs (Past 12 Hours) Vital Signs Temp Pulse Pulse Resp BP BP Pulse Ox 09/22/20 07:08 22 09/22/20 05:48 127 H 34 H 94 09/22/20 05:37 103 H 23 96 09/22/20 04:20 126 H 39 H 95 09/22/20 03:35 37.9 C H 125 H 30 H 139/113 H 95 09/22/20 03:11 38.1 C H 126 H 37 H 157/118 H 94 09/22/20 03:00 38.1 C H 125 H 35 H 94 09/22/20 02:34 123 H 36 H 157/111 H 94 09/22/20 02:30 124 H 29 H 91 09/22/20 00:25 37.1 C 120 H 28 H 144/103 H 89 L 09/21/20 23:17 105 H 26 H 95
[2020-09-22] MEDS: METHYLNALTREXONE BROMIDE 12 MG/0.6 ML VIAL SQ SCH (11:17)
--- NOTE | 2020-09-22 15:12 | Hospitalist Progress Note ---
Date of Service September 22, 2020 Assessment & Plan (1) Colonic obstruction: (2) Abdominal pain: Present on admission with abdominal discomfort mostly due to constipation CT scan showed narrowing of the distal one third of the descending colon with mild upstream colonic dilation with air-fluid levels KUB showed minimal colonic fecal retention. There is gaseous distention of the small bowel and colon. The appearance favors an ileus. Gastro on board Currently sedated and intubated on Vent support Bisacodyl 10mg IN given, may follow with tap water enema if no BM produced Case discussed with GI that recommended to avoid Lactulose because it can worsening the distension GI recommended relistor every other day Surgery on board, continue conservative management Rocephin and IV Flagyl was discontinue, then starting on Ertapenem Acute respiratory failure Possible related to aspiration pneumonia CXR showed multifocal airspace opacities consistent with a multifocal pneumonia. CTA chest showed no evidence of acute pulmonary embolism. Multifocal airspace opacities indicative of a multifocal pneumonia. Small left pleural effusion and trace right pleural effusion Intubated on mechanical ventilation Continue IV Ertapenem Elevated liver function tests. Possible related to alcohol abuse AST decreased from 163 to 82 --> 50 and ALk phos decreased from 355 to 256 --> 201 Continue monitor Liver enzymes Electrolytes imbalance Phos 1.2 and K 3.4 Electrolytes replaced Continue monitor Elevated WBC Elevated Lactate Possible related to sepsis (Elevated WBC and Tachycardia ) Procalcitonin wnl IV Rocephin and Flagyl discontinued then transition to Ertapemen Blood cx collected today - no growth WBC trending down History of Alcohol abuse Possible DT Pt became very agitated last night Sedated on Mechanical Vent support He said that he drank once since rehab back in 06/2019 found bottle of Vodka in the house Pt lied to me and staff about drinking alcohol Multiples times I asked him if he drank alcohol in the last few days to tell me because if he goes to DT that can cause him to , but he continue declining Reviewed his meds to see if he was on any Benzo that he could have been withdrawal from that Continue Precedex drip Will need inpatient alcohol rehab Depression Doxepin and Clonidine discontinued Gastroesophageal reflux disease Continue proton pump inhibitor. DVT px on SCDs Disposition Will continue monitor closely Admission and Anticipated Discharge Date Admission Date: September 19, 2020 Subjective Pt was seen and examined for follow up of respiratory failure and abdominal distention Sedated and intubated on vent support for DT Spoke to this morning. said that she looked around and found empty bottle of Vodka said that she had no idea that pt was continuing drinking after rehab said that pt will not come home unless he goes to rehab Physical Exam Physical Exam: General- No acute distress Head- atraumatic Eyes- PERRL, EOMI, ENT- oropharynx clear, dry mouth Neck- supple, no JVD Lungs- clear to auscultation Heart- regular rhythm; no murmur Abdomen- normal bowel sounds, +mild tender, +abdominal distention Extremities- no calf tenderness Neuro- alert, oriented x 3; PERRL, EOMI; no facial palsy; no dysarthria Skin- warm & dry Results & Data Results & Data ([facility]) Vital Signs (Past 12 Hours) Vital Signs Temp Pulse Pulse Resp BP Pulse Ox 09/22/20 13:30 37.1 C 75 94 09/22/20 13:21 37.1 C 74 102/67 94 09/22/20 13:00 37.1 C 75 94 09/22/20 12:51 37.1 C 76 99/65 L 94 09/22/20 12:30 37.1 C 78 94 09/22/20 12:21 37.1 C 79 103/64 94 09/22/20 12:00 37.1 C 83 94 09/22/20 11:51 37.1 C 84 102/62 94 09/22/20 11:30 37.1 C 90 93 09/22/20 11:21 37.1 C 90 105/69 93 09/22/20 11:00 37.2 C 95 H 93 09/22/20 10:52 37.2 C 96 H 93 09/22/20 10:51 37.2 C 95 H 103/66 94 09/22/20 10:44 85 20 90 09/22/20 10:30 37.2 C 106 H 89 L 09/22/20 10:21 37.1 C 106 H 118/76 88 L 09/22/20 10:00 37.0 C 92 H 94 09/22/20 09:51 37.0 C 91 H 100/64 94 09/22/20 09:30 37.1 C 93 H 94 09/22/20 09:21 37.1 C 93 H 100/68 94 09/22/20 09:00 37.1 C 93 H 94 09/22/20 08:51 37.1 C 95 H 99/68 L 94 09/22/20 08:30 37.2 C 95 H 94 09/22/20 08:21 37.2 C 95 H 103/64 94 09/22/20 08:00 37.2 C 97 H 94 09/22/20 07:51 37.3 C 98 H 101/66 94 09/22/20 07:30 37.3 C 97 H 94 09/22/20 07:21 37.3 C 97 H 100/66 94 09/22/20 07:08 22 09/22/20 07:00 37.3 C 97 H 97 09/22/20 06:51 37.3 C 97 H 107/67 96 09/22/20 06:45 37.3 C 99 H 96 09/22/20 05:48 127 H 34 H 94 09/22/20 05:37 103 H 23 96 09/22/20 04:20 126 H 39 H 95 09/22/20 03:35 37.9 C H 125 H 30 H 139/113 H 95 09/22/20 03:11 38.1 C H 126 H 37 H 157/118 H 94 09/22/20 03:00 38.1 C H 125 H 35 H 94 (1) Abdominal pain Abdominal location: lower abdomen, unspecified Qualified Code(s): R10.30 - Lower abdominal pain, unspecified
--- NOTE | 2020-09-22 15:21 | Surgery Progress Note ---
Date of Service September 22, 2020 Assessment & Plan (1) Delirium tremens: (2) Abdominal pain: pt's vitals look dramatically better CT from early this AM reviewed. no acute surgical indications at this time...appears to be infectious etiology. will continue to follow along from the background. Admission and Anticipated Discharge Date Admission Date: September 19, 2020 Subjective pt seen. events of last night reviewed. no intubated/sedated. at bedside. Physical Exam Physical Exam: sedated on vent vss abd: soft. distended. ( approx same as yesterday). no rigidity. ext: no c/c/e Results & Data ([facility]) Vital Signs (Past 12 Hours) Vital Signs Temp Pulse Pulse Resp BP Pulse Ox 09/22/20 13:30 37.1 C 75 94 09/22/20 13:21 37.1 C 74 102/67 94 09/22/20 13:00 37.1 C 75 94 09/22/20 12:51 37.1 C 76 99/65 L 94 09/22/20 12:30 37.1 C 78 94 09/22/20 12:21 37.1 C 79 103/64 94 09/22/20 12:00 37.1 C 83 94 09/22/20 11:51 37.1 C 84 102/62 94 09/22/20 11:30 37.1 C 90 93 09/22/20 11:21 37.1 C 90 105/69 93 09/22/20 11:00 37.2 C 95 H 93 09/22/20 10:52 37.2 C 96 H 93 09/22/20 10:51 37.2 C 95 H 103/66 94 09/22/20 10:44 85 20 90 09/22/20 10:30 37.2 C 106 H 89 L 09/22/20 10:21 37.1 C 106 H 118/76 88 L 09/22/20 10:00 37.0 C 92 H 94 09/22/20 09:51 37.0 C 91 H 100/64 94 09/22/20 09:30 37.1 C 93 H 94 09/22/20 09:21 37.1 C 93 H 100/68 94 09/22/20 09:00 37.1 C 93 H 94 09/22/20 08:51 37.1 C 95 H 99/68 L 94 09/22/20 08:30 37.2 C 95 H 94 09/22/20 08:21 37.2 C 95 H 103/64 94 09/22/20 08:00 37.2 C 97 H 94 09/22/20 07:51 37.3 C 98 H 101/66 94 09/22/20 07:30 37.3 C 97 H 94 09/22/20 07:21 37.3 C 97 H 100/66 94 09/22/20 07:08 22 09/22/20 07:00 37.3 C 97 H 97 09/22/20 06:51 37.3 C 97 H 107/67 96 09/22/20 06:45 37.3 C 99 H 96 09/22/20 05:48 127 H 34 H 94 09/22/20 05:37 103 H 23 96 09/22/20 04:20 126 H 39 H 95 09/22/20 03:35 37.9 C H 125 H 30 H 139/113 H 95 PG Care Time/CCT Total # of Minutes Spent Total Time Spent with Patient: Total time spent is greater than 50% in coordination of care (as documented) at patient's floor/unit and/or counseling patient: Coding Level of Care Code 32393 Subseq Hosp Care Lvl 2 Diagnoses Delirium tremens F10.231 Abdominal pain R10.30 Abdominal location: lower abdomen, unspecified (1) Abdominal pain Abdominal location: lower abdomen, unspecified Qualified Code(s): R10.30 - Lower abdominal pain, unspecified
[2020-09-22 17:59] LABS: BUN Creatinine Ratio 20.3 (10-20); Calcium 7.8 mg/dl (8.5-10.1); Creatinine Clr Calc Pharmacy 155.2 ml/min; Est GFR (African American) 133.5; Est GFR (Non-African American) 115.2; Magnesium 2.3 mg/dl (1.8-2.4); Phosphorus 3.7 mg/dl (2.5-4.9); Potassium 4.3 mmol/L (3.5-5.1)
[2020-09-22] MEDS: ICU ELECTROLYTE REPLACEMENT PROTOCOL SCH (18:13)
[2020-09-22] MEDS: THIAMINE HCL 100 MG in SYRINGE 9 ML IV SCH (20:53)
[2020-09-23] MEDS: ERTAPENEM SODIUM 1,000 MG in SODIUM CHLORIDE 0.9% 50 ML IV SCH (01:26)
[2020-09-23] MEDS: DEXMEDETOMIDINE HCL 400 MCG in 0.9 % SODIUM CHLORIDE 96 ML IV SCH ×4 (02:47→22:55)
[2020-09-23] MEDS: DEXMEDETOMIDINE HCL 200 MCG in SODIUM CHLORIDE 0.9% 48 ML IV SCH (03:08)
[2020-09-23] MEDS: propofoL 1,000 MG/100 ML VIAL IV SCH ×3 (03:44→22:21)
[2020-09-23 04:04] LABS: iSTAT Allen Test Pass; iSTAT Arterial Blood Gas HCO3 24 meg/L (19-24); iSTAT Arterial Blood Gas pCO2 36 mmHg (35-46); iSTAT Arterial Blood Gas pH 7.42 (7.35-7.45); iSTAT Arterial Blood Gas pO2 61 mmHg (80-95); iSTAT Carbon Dioxide 25 mmol/L (24-31); iSTAT FiO2 35 %; iSTAT Site R Radial
[2020-09-23 04:58] LABS: Basophils # (auto) 0.01 K/uL (0-0.2); Basophils % (auto) 0.1 %; Eosinophils # (auto) 0.01 K/uL (0-0.5); Eosinophils % (auto) 0.1 %; Hematocrit (blood only) 39.2 % (42-52); Hemoglobin 13.1 g/dL (14.0-18.0); Immature Granulocytes # (auto) 0.02 K/uL (0.00-0.02); Immature Granulocytes % (auto) 0.2 %; Lymphocytes # (auto) 1.15 K/uL (1.2-3.4); Lymphocytes % (auto) 11.6 %; Mean Corpuscular Hemoglobin 35.8 pg (25-34); Mean Corpuscular Hgb Conc 33.4 g/dL (32-36); Mean Corpuscular Volume 107.1 fL (80-100); Mean Platelet Volume 10.6 fL (7.4-10.4); Monocytes # (auto) 1.17 K/uL (0.11-0.59); Monocytes % (auto) 11.8 %; Neutrophils # (auto) 7.55 K/uL (1.4-6.5); Neutrophils % (auto) 76.2 %; Platelet Count 147 K/uL (130-400); RDW Coefficient of Variation 13.7 % (11.5-14.5); Red Blood Count 3.66 M/uL (4.7-6.1); White Blood Count 9.91 K/uL (4.8-10.8)
[2020-09-23 05:15] LABS: BUN Creatinine Ratio 25.9 (10-20); Calcium 7.4 mg/dl (8.5-10.1); Creatinine Clr Calc Pharmacy 143.4 ml/min; Est GFR (African American) 129.3; Est GFR (Non-African American) 111.5; Magnesium 2.4 mg/dl (1.8-2.4); Phosphorus 3.2 mg/dl (2.5-4.9); Potassium 3.9 mmol/L (3.5-5.1)
[2020-09-23] MEDS: ICU ELECTROLYTE REPLACEMENT PROTOCOL SCH ×3 (05:56→17:30)
[2020-09-23] MEDS: POTASSIUM CHLORIDE / WTR 10 MEQ/100 ML PLCT IV SCH ×2 (06:22→07:24)
--- NOTE | 2020-09-23 07:56 | XRay Report ---
XR chest 1V portable HISTORY: Respiratory failure. COMPARISON: Chest 09/22/2020. FINDINGS: The endotracheal tube terminates 3.3 cm from the main. Nasogastric tube terminates below the diaphragm. There are low lung volumes. Multifocal bilateral airspace opacities have slightly impr savanah. No pneumothorax. IMPRESSION: 1. Satisfactory support line placement. 2. Slight improvement in the multifocal bilateral airspace opacities consistent with a pneumonia. ACT 112: Negative or not required by law. Electronically signed by: Kade Vega M.D. 09/23/2020 7:55 AM
--- NOTE | 2020-09-23 08:17 | XRay Report ---
XR KUB/Abdomen 1 view CLINICAL HISTORY: ileus/ obstruction COMPARISON STUDY: September 22, 2020 FINDINGS: There is persistent gaseous distention of the colon to the level of the splenic flexure. Tr ansverse colon measures 93 mm in diameter. An enteric tube is visualized within the stomach. IMPRESSION: 1. Interval placement of an enteric tube positioned within the stomach 2. Gaseous distention of colon to the level of the splenic flexure ACT 112: Negative or not required by law. Electronically signed by: Alexandro Richards M.D. 09/23/2020 8:16 AM
[2020-09-23] MEDS: FAMOTIDINE 20 MG in SYRINGE 3 ML IV SCH ×2 (08:24→21:00)
[2020-09-23] MEDS: THIAMINE HCL 100 MG in SYRINGE 9 ML IV SCH ×2 (08:24→20:59)
[2020-09-23] MEDS: FOLIC ACID 1 MG TAB PO SCH (08:25)
[2020-09-23] MEDS: ENOXAPARIN INJ 40 MG/0.4 ML SYR SQ SCH (08:25)
[2020-09-23] MEDS: MULTIVITAMIN CHEWABLE TAB PO SCH (08:25)
--- NOTE | 2020-09-23 09:30 | Surgery Progress Note ---
Date of Service September 23, 2020 Assessment & Plan (1) Enterocolitis: Patient appears to be doing better clinically. Etiology unclear but appears to me to be infectious in nature. No acute surgical indications. We will continue to follow from the periphery. Dr. Gutierrez is relationship manager for the weekend. Admission and Anticipated Discharge Date Admission Date: September 19, 2020 Subjective Patient seen. Intubated. Sedated. Discussed care with nursing. Physical Exam Physical Exam: Sedated on vent no acute distress Vital signs stable Abdomen is soft. Moderate distention. Faint bowel sounds. No guarding or rigidity Results & Data ([facility]) Vital Signs (Past 12 Hours) Vital Signs Temp Pulse Resp BP Pulse Ox 09/23/20 07:10 68 18 91 09/23/20 07:00 66 09/23/20 06:10 36.8 C 66 93 09/23/20 06:02 36.8 C 67 104/77 93 09/23/20 06:00 36.8 C 67 93 09/23/20 05:52 36.9 C 67 104/77 93 09/23/20 05:50 36.9 C 67 93 09/23/20 05:40 36.9 C 67 93 09/23/20 05:30 36.9 C 70 92 09/23/20 05:22 36.9 C 69 103/77 91 09/23/20 05:20 36.9 C 70 90 09/23/20 05:10 36.8 C 68 92 09/23/20 05:00 36.8 C 69 91 09/23/20 04:52 36.8 C 68 104/72 92 09/23/20 04:50 36.8 C 68 92 09/23/20 04:40 36.8 C 67 93 09/23/20 04:30 36.8 C 69 21 94 09/23/20 04:22 36.8 C 69 103/76 93 09/23/20 04:20 36.8 C 70 93 09/23/20 04:10 36.9 C 71 93 09/23/20 04:00 36.9 C 71 92 09/23/20 03:52 36.9 C 71 94/71 L 90 09/23/20 03:50 36.9 C 71 90 09/23/20 03:40 36.9 C 81 89 L 09/23/20 03:30 36.9 C 68 94 09/23/20 03:22 36.9 C 68 105/80 94 09/23/20 03:20 36.9 C 68 94 09/23/20 03:10 36.9 C 68 93 09/23/20 03:00 36.9 C 68 93 09/23/20 02:52 36.9 C 68 109/78 93 09/23/20 02:50 36.9 C 68 93 09/23/20 02:40 36.9 C 68 93 09/23/20 02:30 36.9 C 68 93 09/23/20 02:22 36.9 C 68 105/79 93 09/23/20 02:20 36.9 C 66 94 09/23/20 02:10 36.9 C 69 93 09/23/20 02:04 69 18 93 09/23/20 02:00 36.9 C 68 93 09/23/20 01:52 36.9 C 69 107/81 93 09/23/20 01:50 36.9 C 68 93 09/23/20 01:40 36.9 C 69 93 09/23/20 01:30 36.9 C 69 93 09/23/20 01:22 36.9 C 69 105/78 93 09/23/20 01:20 36.9 C 69 93 09/23/20 01:10 36.9 C 69 93 09/23/20 01:00 36.9 C 70 93 09/23/20 00:51 36.9 C 69 106/79 93 09/23/20 00:50 36.9 C 69 93 09/23/20 00:40 36.9 C 69 93 09/23/20 00:30 36.9 C 69 93 09/23/20 00:22 36.9 C 69 106/79 93 09/23/20 00:20 36.9 C 69 93 09/23/20 00:10 36.9 C 69 93 09/22/20 23:00 70 09/22/20 22:24 70 18 93 09/22/20 21:40 36.9 C 72 93 09/22/20 21:30 36.9 C 72 93 PG Care Time/CCT Total # of Minutes Spent Total Time Spent with Patient: Total time spent is greater than 50% in coordination of care (as documented) at patient's floor/unit and/or counseling patient: Coding Level of Care Code 61107 Subseq Hosp Care Lvl 2 Diagnoses Enterocolitis K52.9
--- NOTE | 2020-09-23 14:43 | Critical Care Progress Note ---
Date of Service September 23, 2020 Assessment & Plan (1) Admitted to intensive care unit: Reason Critically Ill: 40-year-old male who is currently hospitalized with colonic obstruction who is now with increasing agitation and altered mental status in the setting of concerns for alcohol withdrawal. Patient also with bilateral pulmonary infiltrates and concern for possible aspiration versus pulmonary edema. 24-hour events: Echocardiogram was completed. The patient becomes severely agitated with any attempt to wean his propofol off. He is on Precedex currently. Recommendations: NEURO - Alcohol withdrawal, severe. We will continue Precedex and try and increase the Precedex and wean off the propofol. We will add oral low-dose benzodiazepine to try and even the patient out. Low-dose Neurontin may also be beneficial. If he continues to have issues, consideration of low-dose antipsychotic such as Zyprexa might be helpful as long as his QT is appropriate. We will continue high-dose thiamine and folate. CARDIAC/VASCULAR - Hemodynamically stable. Echocardiogram revealed no significant findings and BNP level was normal, arguing against significant atypical pulmonary edema.. RESPIRATORY - Hypoxemic respiratory failure with patchy bilateral infiltrates. Initial concern for potential cardiogenic edema however this appears less likely given his echo findings and normal BNP. Aspiration is a concern. Respiratory cultures are growing pinpoint growth and have been reincubated. We will continue antibiotics for now. Continue mechanical ventilation pending improvement in the patient's neurological status. He is currently on minimal vent support currently. His x-ray continues to demonstrate patchy bilateral infiltrates which may be infectious. Depending on clinical course, CT imaging may be required. GI/NUTRITION - Obstruction versus ileus. Repeat imaging appears to favor ileus. Appreciate GI and general surgery clearly evaluation. They have been reluctant to use lactulose given concerns about potential gas formation. His abdomen exam this morning is better. He is less distended and has bowel sounds. Continue MiraLAX. May consider fleets or soapsuds enemas depending on clinical response. He did have evidence of thickening in the colon suggestive of potential enterocolitis. Stool was negative for C. difficile. No enteric pathogens isolated on stool culture. See antibiotics below. Ok to start trophic tube feeding. RENAL/LYTES - Renal status holding with normal electrolytes and acid-base status acceptable. Will replace calcium. Continue to follow. - Joyce in place - Strict I&Os. ENDO - No history of diabetes or thyroid disease BSGs per unit protocol. HEME - No current issues ID - Day #3 ertapenem. He had been on Flagyl and Rocephin for 1 day prior. Continue pending respiratory cultures. Follow fever curve and white blood cell count. LINES/IV ACCESS - PIVs x2 ET tube Joyce catheter OG DVT PROPHYLAXIS - Lovenox SCDs Patient's overall prognosis remains guarded. He is critically ill at this point time and requiring life-sustaining therapies. A total of 39 minutes critical care time was spent in evaluation management stabilization of this patient in cluding discussion of multidisciplinary rounds and with bedside ICU nurse. (2) Delirium tremens: (3) Enterocolitis: (4) Colonic obstruction: Admission and Anticipated Discharge Date Admission Date: September 19, 2020 Subjective Patient intubated and sedated Review of Systems Review of Systems: Unobtainable due to endotracheal tube Physical Exam Constitutional: + morbidly obese and + mechanically ventilated Intubated and sedated Neck: trachea midline, no thyromegaly Respiratory: normal respiratory effort Coarse breath sounds bilaterally Cardiovascular: RRR, no murmur, no edema Gastrointestinal (Abdomen): normal bowel sounds, soft, nontender, no hepatosplenomegaly Musculoskeletal: Extremities: extremities normal to inspection Skin: no rashes, warm and dry Neurologic: Nonfocal exam Lymphatic: no cervical lymphadenopathy Results & Data Results & Data ([facility]) Vital Signs (Past 12 Hours) Vital Signs Temp Pulse Resp BP Pulse Ox 09/23/20 12:52 37.0 C 66 93/71 L 93 09/23/20 11:52 37.0 C 65 96/73 L 94 09/23/20 11:00 65 18 94 09/23/20 10:52 37.0 C 65 98/75 L 94 09/23/20 09:52 36.9 C 66 16 102/78 95 09/23/20 08:52 36.9 C 65 16 104/78 95 09/23/20 07:52 36.9 C 67 16 104/79 97 09/23/20 07:10 68 18 91 09/23/20 07:00 66 09/23/20 06:10 36.8 C 66 93 09/23/20 06:02 36.8 C 67 104/77 93 09/23/20 06:00 36.8 C 67 93 09/23/20 05:52 36.9 C 67 104/77 93 09/23/20 05:50 36.9 C 67 93 09/23/20 05:40 36.9 C 67 93 09/23/20 05:30 36.9 C 70 92 09/23/20 05:22 36.9 C 69 103/77 91 09/23/20 05:20 36.9 C 70 90 09/23/20 05:10 36.8 C 68 92 09/23/20 05:00 36.8 C 69 91 09/23/20 04:52 36.8 C 68 104/72 92 09/23/20 04:50 36.8 C 68 92 09/23/20 04:40 36.8 C 67 93 09/23/20 04:30 36.8 C 69 21 94 09/23/20 04:22 36.8 C 69 103/76 93 09/23/20 04:20 36.8 C 70 93 09/23/20 04:10 36.9 C 71 93 09/23/20 04:00 36.9 C 71 92 09/23/20 03:52 36.9 C 71 94/71 L 90 09/23/20 03:50 36.9 C 71 90 09/23/20 03:40 36.9 C 81 89 L 09/23/20 03:30 36.9 C 68 94 09/23/20 03:22 36.9 C 68 105/80 94 09/23/20 03:20 36.9 C 68 94 09/23/20 03:10 36.9 C 68 93 09/23/20 03:00 36.9 C 68 93 09/23/20 02:52 36.9 C 68 109/78 93 09/23/20 02:50 36.9 C 68 93 09/23/20 02:40 36.9 C 68 93 09/23/20 02:30 36.9 C 68 93 Laboratory Results 09/23/20 04:38 09/23/20 04:38 Arterial blood gas this mornin.4 BNP 233 Respiratory culture with pinpoint growth, currently reincubating Diagnostic Findings Chest x-ray today was independently reviewed. Endotracheal tube is in good position. The lungs again demonstrate low lung volumes with hazy bilateral patchy opacities. Echocardiogram from yesterday showed EF of 55-60 without valvular heart disease or wall motion abnormality. Mild concentric LVH. No comment on diastolic fill ing parameters Coding Level of Care Code Critical Care 1st 30-74 mins Diagnoses Admitted to intensive care unit Z78.9 Delirium tremens F10.231 Enterocolitis K52.9 Colonic obstruction K56.609 Time Spent (min) 39
[2020-09-23] MEDS: LORazepam 1 MG TAB PO SCH ×2 (15:25→20:58)
[2020-09-23] MEDS: LACTATED RINGER'S 1,000 ML IV SCH (15:27)
[2020-09-23] MEDS ORDERED: PEPTAMEN INTENSE VHP 1.0 CAL 1,000 ML BAG OG SCH (16:30)
[2020-09-23] MEDS: TUBE FEEDING WATER FLUSH OG SCH (17:32)
--- NOTE | 2020-09-23 18:37 | Hospitalist Progress Note ---
Date of Service September 23, 2020 Assessment & Plan (1) Colonic obstruction: (2) Abdominal pain: Present on admission with abdominal discomfort mostly due to constipation CT scan showed narrowing of the distal one third of the descending colon with mild upstream colonic dilation with air-fluid levels KUB showed minimal colonic fecal retention. There is gaseous distention of the small bowel and colon. The appearance favors an ileus. Gastro on board Currently sedated and intubated on Vent support Bisacodyl 10mg MT given, may follow with tap water enema if no BM produced Case discussed with GI that recommended to avoid Lactulose because it can worsening the distension GI recommended relistor every other day Surgery on board, continue conservative management Rocephin and IV Flagyl was discontinue, then starting on Ertapenem Acute respiratory failure Possible related to aspiration pneumonia CXR showed multifocal airspace opacities consistent with a multifocal pneumonia. CTA chest showed no evidence of acute pulmonary embolism. Multifocal airspace opacities indicative of a multifocal pneumonia. Small left pleural effusion and trace right pleural effusion Intubated on mechanical ventilation Sputum cx pending- pinpoint grow, will reincubated Continue IV Ertapenem Elevated liver function tests. Possible related to alcohol abuse AST decreased from 163 to 82 --> 50 and ALk phos decreased from 355 to 256 --> 201 Continue monitor Liver enzymes Electrolytes imbalance Phos 1.2 and K 3.4 Electrolytes replaced Continue monitor Elevated WBC Elevated Lactate Possible related to sepsis (Elevated WBC and Tachycardia ) Procalcitonin wnl IV Rocephin and Flagyl discontinued then transition to Ertapemen Blood cx collected today - no growth WBC trending down History of Alcohol abuse Possible DT Pt became very agitated last night Sedated on Mechanical Vent support He said that he drank once since rehab back in 06/2019 found bottle of Vodka in the house Pt lied to me and staff about drinking alcohol Multiples times I asked him if he drank alcohol in the last few days to tell me because if he goes to DT that can cause him to , but he continue declining Reviewed his meds to see if he was on any Benzo that he could have been withdrawal from that Continue Precedex drip Will need inpatient alcohol rehab Depression Doxepin and Clonidine discontinued Gastroesophageal reflux disease Continue proton pump inhibitor. DVT px on SCDs Disposition Will continue monitor closely in the ICU Admission and Anticipated Discharge Date Admission Date: September 19, 2020 Subjective Pt was seen and examined for follow up of respiratory failure on vent support Sedated on propofol and intubated on mechanical vent support Nurse said that pt was agitated early when sedation was off and was placed back on propofol Review of Systems Review of Systems: All systems reviewed & are unremarkable except as noted in Subjective Physical Exam Physical Exam: General- No acute distress Head- atraumatic Eyes- PERRL, EOMI, ENT- oropharynx clear, dry mouth Neck- supple, no JVD Lungs- clear to auscultation Heart- regular rhythm; no murmur Abdomen- normal bowel sounds, +mild tender, +abdominal distention Extremities- no calf tenderness Neuro- alert, oriented x 3; PERRL, EOMI; no facial palsy; no dysarthria Skin- warm & dry Results & Data Results & Data ([facility]) Vital Signs (Past 12 Hours) Vital Signs Temp Pulse Resp BP Pulse Ox 09/23/20 15:45 67 17 93 09/23/20 12:52 37.0 C 66 93/71 L 93 09/23/20 11:52 37.0 C 65 96/73 L 94 09/23/20 11:00 65 18 94 09/23/20 10:52 37.0 C 65 98/75 L 94 09/23/20 09:52 36.9 C 66 16 102/78 95 09/23/20 08:52 36.9 C 65 16 104/78 95 09/23/20 07:52 36.9 C 67 16 104/79 97 09/23/20 07:10 68 18 91 09/23/20 07:00 66 (1) Abdominal pain Abdominal location: lower abdomen, unspecified Qualified Code(s): R10.30 - Lower abdominal pain, unspecified
[2020-09-23] MEDS: GABAPENTIN 300 MG CAP PO SCH (20:58)
[2020-09-23] MEDS ORDERED: GABAPENTIN 600 MG TAB PO SCH (23:00)
[2020-09-24] MEDS: TUBE FEEDING WATER FLUSH OG SCH ×7 (01:03→21:16)
[2020-09-24] MEDS: DEXMEDETOMIDINE HCL 400 MCG in 0.9 % SODIUM CHLORIDE 96 ML IV SCH ×6 (02:01→23:01)
[2020-09-24] MEDS: ERTAPENEM SODIUM 1,000 MG in SODIUM CHLORIDE 0.9% 50 ML IV SCH (02:04)
[2020-09-24] MEDS: LORazepam 1 MG TAB PO SCH ×4 (02:05→21:18)
[2020-09-24 04:42] LABS: iSTAT Allen Test Pass; iSTAT Art Bld Gas pCO2 Correct 35 mmHg (35-46); iSTAT Art Bld Gas pH Corrected 7.434 (7.35-7.45); iSTAT Arterial Blood Gas HCO3 23 meg/L (19-24); iSTAT Arterial Blood Gas pCO2 33 mmHg (35-46); iSTAT Arterial Blood Gas pH 7.45 (7.35-7.45); iSTAT Arterial Blood Gas pO2 74 mmHg (80-95); iSTAT Arterial Blood Gas pO2 C 80; iSTAT Carbon Dioxide 24 mmol/L (24-31); iSTAT FiO2 35 %; iSTAT Hematocrit 42 % (42-52); iSTAT Hemoglobin 14.3 g/dl (14.0-18.0); iSTAT Potassium 3.7 mmol/L (3.3-5.0); iSTAT Site R Radial; iSTAT Sodium 142 mmol/L (135-144)
[2020-09-24 05:21] LABS: Basophils # (auto) 0.01 K/uL (0-0.2); Basophils % (auto) 0.1 %; Eosinophils # (auto) 0.16 K/uL (0-0.5); Eosinophils % (auto) 2.1 %; Hematocrit (blood only) 43.6 % (42-52); Hemoglobin 14.1 g/dL (14.0-18.0); Immature Granulocytes # (auto) 0.05 K/uL (0.00-0.02); Immature Granulocytes % (auto) 0.7 %; Lymphocytes # (auto) 1.87 K/uL (1.2-3.4); Lymphocytes % (auto) 24.7 %; Mean Corpuscular Hemoglobin 35.4 pg (25-34); Mean Corpuscular Hgb Conc 32.3 g/dL (32-36); Mean Corpuscular Volume 109.5 fL (80-100); Mean Platelet Volume 10.6 fL (7.4-10.4); Monocytes # (auto) 1.33 K/uL (0.11-0.59); Monocytes % (auto) 17.5 %; Neutrophils # (auto) 4.16 K/uL (1.4-6.5); Neutrophils % (auto) 54.9 %; Platelet Count 144 K/uL (130-400); RDW Coefficient of Variation 13.8 % (11.5-14.5); RDW Standard Deviation 55.1 fL (36.4-46.3); Red Blood Count 3.98 M/uL (4.7-6.1); White Blood Count 7.58 K/uL (4.8-10.8)
[2020-09-24 06:10] LABS: Albumin Globulin Ratio 0.5 (0.9-2); Albumin Level 1.9 gm/dl (3.4-5.0); BUN Creatinine Ratio 29.5 (10-20); Bilirubin,Total 1.8 mg/dl (0.2-1); Calcium 7.4 mg/dl (8.5-10.1); Creatinine Clr Calc Pharmacy 140.8 ml/min; Est GFR (African American) 128.6; Globulin 4.1 gm/dl (2.5-4.0); Magnesium 2.2 mg/dl (1.8-2.4); Phosphorus 1.9 mg/dl (2.5-4.9); Potassium 3.8 mmol/L (3.5-5.1)
[2020-09-24] MEDS: ICU ELECTROLYTE REPLACEMENT PROTOCOL SCH ×2 (07:11→17:13)
[2020-09-24] MEDS ORDERED: SODIUM PHOSPHATE 3 MMOL/1 ML 5 ML VIAL IV ONE (07:21)
[2020-09-24] MEDS ORDERED: SODIUM PHOSPHATE 20 MMOL in SODIUM CHLORIDE 0.9% 500 ML IV STA (07:30)
[2020-09-24] MEDS: POTASSIUM CHLORIDE / WTR 10 MEQ/100 ML PLCT IV SCH ×4 (07:56→11:10)
--- NOTE | 2020-09-24 08:01 | XRay Report ---
XR chest 1V portable HISTORY: 40 years-old Male resp failure acute respiratory failure COMPARISON: Chest radiograph 09/23/2020 TECHNIQUE: Portable AP view of the chest FINDINGS: Cardiac silhouette is moderately enlarged. Endotracheal tube overlies the midline, 3.5 cm superior to the main. An enteric tube courses below the diaphragm outside the [id number]. No pneumothorax. Trace pleural effusion. Mild to moderate improved aeration of the lungs with persistent multifocal bi lateral airspace opacities. Bones appear normal. IMPRESSION: 1. Stable lines and tubes. 2. Mild to moderate improved aeration of the lungs with persistent multifocal bilateral airspace opac ities. ACT 112: Negative or not required by law. The above report was generated using voice recognition software. It may contain grammatical, syntax o r spelling errors. Electronically signed by: Jean Spain M.D. 09/24/2020 8:00 AM
[2020-09-24] MEDS: FAMOTIDINE 20 MG in SYRINGE 3 ML IV SCH ×2 (09:31→21:18)
[2020-09-24] MEDS: THIAMINE HCL 100 MG in SYRINGE 9 ML IV SCH ×2 (09:31→21:16)
[2020-09-24] MEDS: FOLIC ACID 1 MG TAB PO SCH (09:32)
[2020-09-24] MEDS: MULTIVITAMIN CHEWABLE TAB PO SCH (09:32)
[2020-09-24] MEDS: ENOXAPARIN INJ 40 MG/0.4 ML SYR SQ SCH (09:33)
[2020-09-24] MEDS: propofoL 1,000 MG/100 ML VIAL IV SCH (09:43)
[2020-09-24] MEDS ORDERED: Nursing to Pharmacy Communication SCH (10:00)
[2020-09-24] MEDS: GABAPENTIN 300 MG CAP PO SCH (10:10)
[2020-09-24] MEDS: LACTATED RINGER'S 1,000 ML IV SCH (11:11)
[2020-09-24] MEDS: METHYLNALTREXONE BROMIDE 12 MG/0.6 ML VIAL SQ SCH (11:11)
--- NOTE | 2020-09-24 11:44 | Critical Care Progress Note ---
Date of Service September 24, 2020 Assessment & Plan (1) Admitted to intensive care unit: Reason Critically Ill: 40-year-old male who is currently hospitalized with colonic obstruction who is now with increasing agitation and altered mental status in the setting of concerns for alcohol withdrawal. Patient also with bilateral pulmonary infiltrates and concern for possible aspiration versus pulmonary edema. 24-hour events: Efforts to wean sedation have continued to run into difficulties due to patient agitation. If the propofol is lowered, he continues to become extremely agitated and cannot follow any commands. This is despite oral Ativan and Precedex Neurontin was also recently started. Recommendations: NEURO - Alcohol withdrawal, severe. We will continue Precedex and try and increase the Precedex and wean off the propofol. Continue scheduled Ativan and low-dose Neurontin. Continue thiamine and folate. We will add Zyprexa to see if we can improve his agitation and continue attempts at eliminating propofol. Once the propofol is off, he can likely be extubated. If the above interventions are unsuccessful, higher dose Neurontin or phenobarbital may be a consideration CARDIAC/VASCULAR - Hemodynamically stable. Echocardiogram revealed no significant findings and BNP level was normal, arguing against significant atypical pulmonary edema.. RESPIRATORY - Hypoxemic respiratory failure with patchy bilateral infiltrates. Initial concern for potential cardiogenic edema however this appears less likely given his echo findings and normal BNP. Aspiration is a concern. Respiratory cultures no growth to date. He is on minimal vent settings currently with improvement in his oxygenation and his chest x-ray is markedly better today. He could be extubated from a respiratory mechanics standpoint however will keep the tube in place given his need for propofol and significant agitation. GI/NUTRITION - Obstruction versus ileus. Repeat imaging appears to favor ileus. Appreciate GI and general surgery clearly evaluation. Bowels are moving more regularly. He is on Relistor per GI. He is less distended and has bowel sounds today. RENAL/LYTES - Renal status holding with normal electrolytes and acid-base status acceptable. Continue to follow. - Joyce in place - Strict I&Os. ENDO - No history of diabetes or thyroid disease BSGs per unit protocol. HEME - No current issues ID - Day #4 ertapenem. He had been on Flagyl and Rocephin for 1 day prior. Can discontinue antibiotics at this point and follow clinically LINES/IV ACCESS - PIVs x2 ET tube Joyce catheter OG DVT PROPHYLAXIS - Lovenox SCDs Patient's overall prognosis remains guarded. He is critically ill at this point time and requiring life-sustaining therapies. A total of 38 minutes critical care time was spent in evaluation management stabilization of this patient including discussion with bedside ICU nurse. (2) Delirium tremens: (3) Enterocolitis: (4) Colonic obstruction: Admission and Anticipated Discharge Date Admission Date: September 19, 2020 Subjective patient intubated and sedated. Review of Systems Review of Systems: Unobtainable due to endotracheal tube Physical Exam Constitutional: + morbidly obese and + mechanically ventilated Neck: trachea midline, no thyromegaly Respiratory: normal respiratory effort Cardiovascular: RRR, no murmur, no edema Gastrointestinal (Abdomen): normal bowel sounds, soft, nontender, no hepatosplenomegaly Musculoskeletal: Extremities: extremities normal to inspection Skin: no rashes, warm and dry Lymphatic: no cervical lymphadenopathy Results & Data Results & Data ([facility]) Vital Signs (Past 12 Hours) Vital Signs Temp Pulse Pulse Resp BP BP Pulse Ox 09/24/20 10:30 37.4 C 67 95 09/24/20 10:23 37.4 C 68 99/77 L 96 09/24/20 10:00 37.4 C 68 96 09/24/20 09:53 37.4 C 67 101/76 95 09/24/20 09:30 37.5 C 68 95 09/24/20 09:23 37.5 C 68 98/73 L 95 09/24/20 09:00 37.6 C H 68 95 09/24/20 08:53 37.6 C H 68 99/70 L 95 09/24/20 08:30 37.6 C H 66 91 09/24/20 08:23 37.6 C H 66 99/73 L 95 09/24/20 08:00 37.7 C H 68 68 19 95/71 L 94 09/24/20 07:53 37.7 C H 69 96/69 L 94 09/24/20 07:41 37.7 C H 68 100/68 94 09/24/20 07:30 37.8 C H 64 94 09/24/20 07:25 68 16 95 09/24/20 07:23 37.8 C H 68 95/71 L 95 09/24/20 07:10 37.8 C H 68 95 09/24/20 07:00 37.9 C H 68 94 09/24/20 06:53 37.9 C H 69 99/69 L 94 09/24/20 06:50 38.0 C H 69 94 09/24/20 06:40 38.0 C H 69 94 09/24/20 06:30 38.0 C H 69 93 09/24/20 06:26 38.0 C H 69 103/73 93 09/24/20 06:20 37.8 C H 70 92 09/24/20 06:10 38.0 C H 70 90 09/24/20 06:00 38.0 C H 70 95 09/24/20 05:53 38.0 C H 70 94/70 L 95 09/24/20 05:50 38.1 C H 70 94 09/24/20 05:40 38.1 C H 70 94 09/24/20 05:30 38.1 C H 71 94 09/24/20 05:22 38.1 C H 71 97/74 L 95 09/24/20 05:20 38.1 C H 71 95 09/24/20 05:10 38.1 C H 71 95 09/24/20 05:00 38.2 C H 71 94 09/24/20 04:52 38.2 C H 71 98/75 L 94 09/24/20 04:50 38.2 C H 71 94 09/24/20 04:40 38.2 C H 72 94 09/24/20 04:30 38.2 C H 72 94 09/24/20 04:22 38.2 C H 72 17 98/71 L 94 09/24/20 04:20 38.2 C H 72 94 09/24/20 04:10 38.2 C H 72 94 09/24/20 04:00 38.2 C H 73 93 09/24/20 03:52 38.2 C H 73 92/73 L 93 09/24/20 03:50 38.2 C H 72 93 09/24/20 03:40 37.9 C H 74 91 09/24/20 03:30 38.2 C H 71 94 09/24/20 03:23 38.2 C H 71 97/72 L 94 09/24/20 03:20 38.3 C H 71 94 09/24/20 03:10 38.2 C H 71 94 09/24/20 03:06 38.2 C H 71 96/71 L 94 09/24/20 03:00 38.3 C H 72 94 09/24/20 02:50 38.3 C H 71 94 09/24/20 02:40 38.3 C H 71 94 09/24/20 02:30 38.4 C H 72 94 09/24/20 02:23 38.4 C H 72 94 09/24/20 02:20 38.4 C H 72 94 09/24/20 02:10 38.3 C H 71 94 09/24/20 02:00 38.3 C H 72 94 09/24/20 01:53 38.2 C H 71 146/34 H 94 09/24/20 01:50 38.2 C H 71 94 09/24/20 01:40 38.2 C H 71 94 09/24/20 01:30 38.2 C H 71 94 09/24/20 01:23 38.2 C H 71 139/35 L 94 09/24/20 01:20 38.2 C H 72 94 09/24/20 01:10 38.2 C H 71 19 94 09/24/20 01:00 38.2 C H 71 94 Laboratory Results 09/24/20 05:03 09/24/20 05:03 Diagnostic Findings Chest x-ray from today was independently reviewed. Tubes and lines are in good position. There is improvement in the patchy bilateral opacities with small bilateral effusions Coding Level of Care Code Critical Care 1st 30-74 mins Diagnoses Admitted to intensive care unit Z78.9 Delirium tremens F10.231 Enterocolitis K52.9 Colonic obstruction K56.609 Time Spent (min) 38
[2020-09-24] MEDS: GABAPENTIN 250 MG/5 ML 470 ML BTL NG SCH ×2 (13:13→21:18)
[2020-09-24] MEDS: OLANZapine 5 MG TABLET PO SCH ×2 (13:58→21:16)
--- NOTE | 2020-09-24 16:18 | Hospitalist Progress Note ---
Date of Service September 24, 2020 Assessment & Plan (1) Colonic obstruction: (2) Abdominal pain: Present on admission with abdominal discomfort mostly due to constipation CT scan showed narrowing of the distal one third of the descending colon with mild upstream colonic dilation with air-fluid levels KUB showed minimal colonic fecal retention. There is gaseous distention of the small bowel and colon. The appearance favors an ileus. Gastro on board Currently sedated and intubated on Vent support Bisacodyl 10mg MN given, may follow with tap water enema if no BM produced Case discussed with GI that recommended to avoid Lactulose because it can worsening the distension GI recommended relistor every other day Surgery on board, continue conservative management Rocephin and IV Flagyl was discontinue, then starting on Ertapenem Abx was discontinued on day 5 Acute respiratory failure Possible related to aspiration pneumonia CXR showed multifocal airspace opacities consistent with a multifocal pneumonia. CTA chest showed no evidence of acute pulmonary embolism. Multifocal airspace opacities indicative of a multifocal pneumonia. Small left pleural effusion and trace right pleural effusion Intubated on mechanical ventilation Sputum cx grew normal yakelin IV Ertapenem discontinued Pt remain intubated due to agitation Elevated liver function tests. Possible related to alcohol abuse AST decreased from 163 to 82 --> 50 and ALk phos decreased from 355 to 256 --> 201 Continue monitor Liver enzymes Electrolytes imbalance Phos 1.9 and K 3.9 Electrolytes replaced Continue monitor Elevated WBC Elevated Lactate Possible related to sepsis (Elevated WBC and Tachycardia ) Procalcitonin wnl IV Rocephin and Flagyl discontinued then transition to Ertapemen Blood cx collected today - no growth WBC trending down to normal IV ertapenem discontinued History of Alcohol abuse Possible DT Pt became very agitated last night Sedated on Mechanical Vent support He said that he drank once since rehab back in 06/2019 found bottle of Vodka in the house Pt lied to me and staff about drinking alcohol Multiples times I asked him if he drank alcohol in the last few days to tell me because if he goes to DT that can cause him to , but he continue declining Reviewed his meds to see if he was on any Benzo that he could have been withdrawal from that Continue Precedex and propofol drip Will need inpatient alcohol rehab Agitation Became very agitated once sedation decreased Not sure if agitation is related to alcohol withdrawal vs Anxiety Pt remain intubated due to the agitation Continue propofol and Precedex Olanzapine added Depression Doxepin and Clonidine discontinued Gastroesophageal reflux disease Continue proton pump inhibitor. DVT px on SCDs Disposition Will continue monitor closely in the ICU Admission and Anticipated Discharge Date Admission Date: September 19, 2020 Subjective Pt was seen and examined Lying in bed sedated on mechanical ventilation support Nurse said that whenever they decreased the sedation that pt became very agitated Not sure if the agitation is related to his anxiety or DT Review of Systems Review of Systems: All systems reviewed & are unremarkable except as noted in Subjective Physical Exam Physical Exam: General- sedated Head- atraumatic Eyes- PERRL, EOMI, ENT- Intubated Neck- supple, no JVD Lungs- Mechanical vent support Heart- regular rhythm; no murmur Abdomen- normal bowel sounds, +abdominal distention Extremities- no calf tenderness Neuro- sedated Results & Data Results & Data ([facility]) Vital Signs (Past 12 Hours) Vital Signs Temp Pulse Pulse Resp BP BP Pulse Ox 09/24/20 15:00 66 16 97 09/24/20 13:23 37.3 C 66 94/69 L 96 09/24/20 13:00 37.3 C 66 96 09/24/20 12:53 37.3 C 66 98/72 L 96 09/24/20 12:30 37.3 C 67 96 09/24/20 12:23 37.3 C 67 94/71 L 96 09/24/20 12:00 37.3 C 67 96 09/24/20 11:53 37.3 C 67 93/70 L 96 09/24/20 11:30 37.4 C 67 96 09/24/20 11:23 37.4 C 67 104/73 96 09/24/20 11:00 37.4 C 67 16 95 09/24/20 10:53 37.4 C 67 100/73 95 09/24/20 10:30 37.4 C 67 95 09/24/20 10:23 37.4 C 68 99/77 L 96 09/24/20 10:00 37.4 C 68 96 09/24/20 09:53 37.4 C 67 101/76 95 09/24/20 09:30 37.5 C 68 95 09/24/20 09:23 37.5 C 68 98/73 L 95 09/24/20 09:00 37.6 C H 68 95 09/24/20 08:53 37.6 C H 68 99/70 L 95 09/24/20 08:30 37.6 C H 66 91 09/24/20 08:23 37.6 C H 66 99/73 L 95 09/24/20 08:00 37.7 C H 68 68 19 95/71 L 94 09/24/20 07:53 37.7 C H 69 96/69 L 94 09/24/20 07:41 37.7 C H 68 100/68 94 09/24/20 07:30 37.8 C H 64 94 09/24/20 07:25 68 16 95 09/24/20 07:23 37.8 C H 68 95/71 L 95 09/24/20 07:10 37.8 C H 68 95 09/24/20 07:00 37.9 C H 68 94 09/24/20 06:53 37.9 C H 69 99/69 L 94 09/24/20 06:50 38.0 C H 69 94 09/24/20 06:40 38.0 C H 69 94 09/24/20 06:30 38.0 C H 69 93 09/24/20 06:26 38.0 C H 69 103/73 93 09/24/20 06:20 37.8 C H 70 92 09/24/20 06:10 38.0 C H 70 90 09/24/20 06:00 38.0 C H 70 95 09/24/20 05:53 38.0 C H 70 94/70 L 95 09/24/20 05:50 38.1 C H 70 94 09/24/20 05:40 38.1 C H 70 94 09/24/20 05:30 38.1 C H 71 94 09/24/20 05:22 38.1 C H 71 97/74 L 95 09/24/20 05:20 38.1 C H 71 95 09/24/20 05:10 38.1 C H 71 95 09/24/20 05:00 38.2 C H 71 94 09/24/20 04:52 38.2 C H 71 98/75 L 94 09/24/20 04:50 38.2 C H 71 94 09/24/20 04:40 38.2 C H 72 94 03/13/21 04:30 38.2 C H 72 94 09/24/20 04:22 38.2 C H 72 17 98/71 L 94 09/24/20 04:20 38.2 C H 72 94 (1) Abdominal pain Abdominal location: lower abdomen, unspecified Qualified Code(s): R10.30 - Lower abdominal pain, unspecified
[2020-09-25] MEDS: LACTATED RINGER'S 1,000 ML IV SCH ×2 (00:12→19:25)
[2020-09-25] MEDS: TUBE FEEDING WATER FLUSH OG SCH ×4 (00:30→14:09)
[2020-09-25] MEDS ORDERED: LACTATED RINGER'S 500 ML IV ONE (01:41)
[2020-09-25] MEDS: LORazepam 1 MG TAB PO SCH ×4 (04:08→21:13)
[2020-09-25] MEDS: DEXMEDETOMIDINE HCL 400 MCG in 0.9 % SODIUM CHLORIDE 96 ML IV SCH ×2 (04:34→09:03)
[2020-09-25 04:48] LABS: Basophils # (auto) 0.03 K/uL (0-0.2); Basophils % (auto) 0.4 %; Eosinophils # (auto) 0.29 K/uL (0-0.5); Eosinophils % (auto) 3.6 %; Hematocrit (blood only) 42.4 % (42-52); Hemoglobin 13.7 g/dL (14.0-18.0); Immature Granulocytes # (auto) 0.08 K/uL (0.00-0.02); Lymphocytes # (auto) 1.87 K/uL (1.2-3.4); Lymphocytes % (auto) 23.3 %; Mean Corpuscular Hemoglobin 34.9 pg (25-34); Mean Corpuscular Hgb Conc 32.3 g/dL (32-36); Mean Corpuscular Volume 108.2 fL (80-100); Mean Platelet Volume 10.6 fL (7.4-10.4); Monocytes # (auto) 1.45 K/uL (0.11-0.59); Neutrophils # (auto) 4.32 K/uL (1.4-6.5); Neutrophils % (auto) 53.7 %; Platelet Count 152 K/uL (130-400); RDW Coefficient of Variation 13.3 % (11.5-14.5); RDW Standard Deviation 52.7 fL (36.4-46.3); Red Blood Count 3.92 M/uL (4.7-6.1); White Blood Count 8.04 K/uL (4.8-10.8)
[2020-09-25 05:22] LABS: Albumin Level 1.7 gm/dl (3.4-5.0); BUN Creatinine Ratio 26.2 (10-20); Bilirubin Direct 1.3 mg/dl (0-0.2); Calcium 7.1 mg/dl (8.5-10.1); Creatinine Clr Calc Pharmacy 171.3 ml/min; Est GFR (African American) 138.3; Est GFR (Non-African American) 119.3; Potassium 3.6 mmol/L (3.5-5.1)
[2020-09-25 05:37] LABS: Albumin Globulin Ratio 0.4 (0.9-2); Bilirubin,Total 1.8 mg/dl (0.2-1); Globulin 3.9 gm/dl (2.5-4.0); Phosphorus 2.9 mg/dl (2.5-4.9); Total Protein 5.6 gm/dl (6.4-8.2)
[2020-09-25] MEDS: ICU ELECTROLYTE REPLACEMENT PROTOCOL SCH ×2 (05:53→17:16)
[2020-09-25] MEDS: POTASSIUM CHLORIDE 20 MEQ/15 ML UDC PO SCH ×2 (06:30→10:32)
[2020-09-25] MEDS ORDERED: STAT IV Infusion **Titration per Protocol STA (07:05)
[2020-09-25] MEDS ORDERED: PROPOFOL BOLUS FROM BAG IV PRN (07:05)
[2020-09-25] MEDS ORDERED: propofoL 1,000 MG/100 ML VIAL IV SCH (07:15)
[2020-09-25] MEDS: ENOXAPARIN INJ 40 MG/0.4 ML SYR SQ SCH (07:53)
[2020-09-25] MEDS: MULTIVITAMIN CHEWABLE TAB PO SCH (07:53)
[2020-09-25] MEDS: OLANZapine 5 MG TABLET PO SCH ×2 (07:53→21:13)
[2020-09-25] MEDS: FOLIC ACID 1 MG TAB PO SCH (07:53)
[2020-09-25] MEDS: GABAPENTIN 250 MG/5 ML 470 ML BTL NG SCH (07:57)
[2020-09-25] MEDS: FAMOTIDINE 20 MG in SYRINGE 3 ML IV SCH ×2 (07:57→21:14)
[2020-09-25] MEDS: THIAMINE HCL 100 MG in SYRINGE 9 ML IV SCH ×2 (07:57→21:14)
--- NOTE | 2020-09-25 11:06 | Critical Care Progress Note ---
Date of Service September 25, 2020 Assessment & Plan (1) Admitted to intensive care unit: Reason Critically Ill: 40-year-old male who is currently hospitalized with colonic obstruction who is now with increasing agitation and altered mental status in the setting of concerns for alcohol withdrawal. Patient also with bilateral pulmonary infiltrates and concern for possible aspiration versus pulmonary edema. 24-hour events: Patient been hemodynamically stable overnight with minimal vent settings. His sedation is much better currently. He is able to wake up calmly and follow some simple commands. He was transitioned to pressure support ventilation this morning and is doing well. Secretions have been manageable. Recommendations: NEURO - Alcohol withdrawal, severe. Now off propofol. We will continue Precedex and extubate the patient. Continue scheduled Ativan but will decrease dose down to 1 mg every 8 hours and continue symptom dose therapy. We will discontinue his Neurontin at this point time. Continue thiamine and folate replacement. Continue Zyprexa for now. CARDIAC/VASCULAR - Hemodynamically stable. Echocardiogram revealed no significant findings and BNP level was normal, arguing against significant atypical pulmonary edema. RESPIRATORY - Hypoxemic respiratory failure with patchy bilateral infiltrates. Probable aspiration. X-ray is clear and the patient's gas exchange is normal. Will extubate to nasal cannula and wean as tolerated. Will need pulmonary toilet. GI/NUTRITION - Obstruction versus ileus. Repeat imaging appears to favor ileus. Appreciate GI and general surgery clearly evaluation. Bowels are moving more regularly. He is on Relistor per GI. He is less distended and has bowel sounds today. RENAL/LYTES - Renal status holding with normal electrolytes and acid-base status acceptable. Continue to follow. - Joyce in place - Strict I&Os. ENDO - No history of diabetes or thyroid disease BSGs per unit protocol. HEME - No current issues ID - Completed 4 days of ertapenem. He had been on Flagyl and Rocephin for 1 day prior. Now off antibiotics and following clinically LINES/IV ACCESS - PIVs x2 ET tube Joyce catheter OG DVT PROPHYLAXIS - Lovenox SCDs Discussed with bedside ICU nurse and respiratory therapy. (2) Delirium tremens: (3) Enterocolitis: (4) Colonic obstruction: Admission and Anticipated Discharge Date Admission Date: September 19, 2020 Subjective Intubated and sedated. The patient is able to follow some simple commands and is less agitated today Review of Systems Review of Systems: Unobtainable due to endotracheal tube Physical Exam Constitutional: + morbidly obese and + mechanically ventilated Neck: trachea midline, no thyromegaly Respiratory: normal respiratory effort Cardiovascular: RRR, no murmur, no edema Gastrointestinal (Abdomen): normal bowel sounds, soft, nontender, no hepatosplenomegaly Musculoskeletal: Extremities: extremities normal to inspection Skin: no rashes, warm and dry Lymphatic: no cervical lymphadenopathy Results & Data Results & Data ([facility]) Vital Signs (Past 12 Hours) Vital Signs Temp Pulse Pulse Resp BP BP Pulse Ox 09/25/20 08:00 37.2 C 66 18 86/65 L 93 09/25/20 07:35 65 16 93 09/25/20 07:00 65 09/25/20 06:34 37.3 C 66 87/63 L 09/25/20 06:00 37.4 C 66 93 09/25/20 05:34 37.4 C 67 89/66 L 09/25/20 05:00 37.5 C 67 09/25/20 04:35 37.5 C 66 09/25/20 04:34 37.5 C 66 85/64 L 09/25/20 04:30 66 16 09/25/20 04:02 37.6 C H 67 88/61 L 92 09/25/20 04:00 37.6 C H 67 93 09/25/20 03:34 37.6 C H 67 86/61 L 91 09/25/20 03:02 37.5 C 67 83/63 L 09/25/20 03:00 37.5 C 67 09/25/20 01:52 37.5 C 67 83/63 L 09/25/20 01:00 37.6 C H 67 93 09/25/20 00:52 37.6 C H 67 84/64 L 09/25/20 00:34 37.6 C H 67 09/25/20 00:33 37.6 C H 67 86/67 L 09/25/20 00:00 37.7 C H 68 09/24/20 23:52 37.7 C H 67 89/68 L 09/24/20 23:44 37.7 C H 67 89/65 L 09/24/20 23:38 37.7 C H 68 84/59 L 92 09/24/20 23:35 37.6 C H 68 87/61 L 93 09/24/20 23:30 67 21 92 09/24/20 23:00 37.8 C H 67 93 09/24/20 22:53 66 09/24/20 22:52 37.8 C H 67 84/59 L 93 09/24/20 22:45 37.8 C H 67 86/62 L 94 Laboratory Results 09/25/20 04:30 09/25/20 04:30 Diagnostic Findings No new films Coding Level of Care Code 34431 Subseq Hosp Care Lvl 3 Diagnoses Admitted to intensive care unit Z78.9 Delirium tremens F10.231 Enterocolitis K52.9 Colonic obstruction K56.609
[2020-09-25] MEDS ORDERED: GABAPENTIN 600 MG TAB PO SCH (12:00)
--- NOTE | 2020-09-25 16:53 | Hospitalist Progress Note ---
Date of Service September 25, 2020 Assessment & Plan (1) Colonic obstruction: (2) Abdominal pain: Present on admission with abdominal discomfort mostly due to constipation CT scan showed narrowing of the distal one third of the descending colon with mild upstream colonic dilation with air-fluid levels KUB showed minimal colonic fecal retention. There is gaseous distention of the small bowel and colon. The appearance favors an ileus. Gastro on board Currently sedated and intubated on Vent support Bisacodyl 10mg [place] given, may follow with tap water enema if no BM produced Case discussed with GI that recommended to avoid Lactulose because it can worsening the distension GI recommended relistor every other day Surgery on board, continue conservative management Rocephin and IV Flagyl was discontinue, then starting on Ertapenem Abx was discontinued on day 5 Acute respiratory failure Possible related to aspiration pneumonia CXR showed multifocal airspace opacities consistent with a multifocal pneumonia. CTA chest showed no evidence of acute pulmonary embolism. Multifocal airspace opacities indicative of a multifocal pneumonia. Small left pleural effusion and trace right pleural effusion Intubated on mechanical ventilation Sputum cx grew normal yakelin IV Ertapenem discontinued More calm and follow commands Might get extubated today Elevated liver function tests. Possible related to alcohol abuse AST decreased from 163 to 82 --> 50 and ALk phos decreased from 355 to 256 --> 201 Continue monitor Liver enzymes Electrolytes imbalance Phos 1.9 and K 3.9 Electrolytes replaced Continue monitor Elevated WBC Elevated Lactate Possible related to sepsis (Elevated WBC and Tachycardia ) Procalcitonin wnl IV Rocephin and Flagyl discontinued then transition to Ertapemen Blood cx collected today - no growth WBC trending down to normal IV ertapenem discontinued History of Alcohol abuse Possible DT Pt became very agitated last night Sedated on Mechanical Vent support He said that he drank once since rehab back in 06/2019 found bottle of Vodka in the house Pt lied to me and staff about drinking alcohol Multiples times I asked him if he drank alcohol in the last few days to tell me because if he goes to DT that can cause him to , but he continue declining Reviewed his meds to see if he was on any Benzo that he could have been withdrawal from that Continue Precedex and propofol drip Will need inpatient alcohol rehab Agitation Became very agitated once sedation decreased Not sure if agitation is related to alcohol withdrawal vs Anxiety Pt remain intubated due to the agitation Continue Precedex and propofol discontinued Continue Olanzapine BID Depression Doxepin and Clonidine discontinued Gastroesophageal reflux disease Continue proton pump inhibitor. DVT px on SCDs Disposition Will continue monitor closely in the ICU Admission and Anticipated Discharge Date Admission Date: September 19, 2020 Subjective Pt was seen and examined for follow Intubated on vent support Pt is more calm and follow command today He might get extubated today Physical Exam Physical Exam: General- sedated Head- atraumatic Eyes- PERRL, EOMI, ENT- Intubated Neck- supple, no JVD Lungs- Mechanical vent support Heart- regular rhythm; no murmur Abdomen- normal bowel sounds, +abdominal distention Extremities- no calf tenderness Neuro- sedated Results & Data Results & Data ([facility]) Vital Signs (Past 12 Hours) Vital Signs Temp Pulse Pulse Resp BP BP Pulse Ox 09/25/20 16:18 37.6 C H 91 H 114/83 95 09/25/20 16:00 37.6 C H 88 96 09/25/20 15:48 37.5 C 89 122/78 97 09/25/20 15:18 37.5 C 87 98/79 L 97 09/25/20 15:00 37.4 C 83 96 09/25/20 14:48 37.4 C 83 106/80 97 09/25/20 14:19 37.4 C 81 108/71 94 09/25/20 14:00 37.3 C 83 94 09/25/20 13:57 37.3 C 83 105/73 93 09/25/20 13:20 37.4 C 76 95/71 L 92 09/25/20 13:00 37.3 C 75 98 09/25/20 12:18 37.3 C 74 82/65 L 95 09/25/20 12:00 37.3 C 72 95 09/25/20 11:48 37.3 C 73 87/64 L 94 09/25/20 11:18 37.3 C 70 93/66 L 92 09/25/20 11:10 66 21 96 09/25/20 11:00 37.3 C 67 93 09/25/20 10:48 37.3 C 66 88/62 L 94 09/25/20 10:18 37.3 C 67 89/64 L 93 09/25/20 10:00 37.4 C 67 93 09/25/20 09:48 37.4 C 70 82/59 L 91 09/25/20 09:18 37.2 C 67 87/63 L 93 09/25/20 09:00 37.2 C 67 93 09/25/20 08:48 37.1 C 67 92/64 L 94 09/25/20 08:18 37.2 C 67 82/63 L 93 09/25/20 08:00 37.2 C 67 66 18 86/65 L 93 09/25/20 07:48 37.2 C 67 83/62 L 91 09/25/20 07:35 65 16 93 09/25/20 07:22 37.2 C 66 86/65 L 93 09/25/20 07:00 37.2 C 66 93 09/25/20 06:35 37.3 C 66 93 09/25/20 06:34 37.3 C 66 87/63 L 93 09/25/20 06:00 37.4 C 66 93 09/25/20 05:34 37.4 C 67 89/66 L 93 09/25/20 05:00 37.5 C 67 93 (1) Abdominal pain Abdominal location: lower abdomen, unspecified Qualified Code(s): R10.30 - Lower abdominal pain, unspecified
[2020-09-25] MEDS: ACETAMINOPHEN 325 MG TAB PO PRN (21:13)
[2020-09-26] MEDS: LORazepam 2 MG/4 ML VIAL IV PRN (03:42)
[2020-09-26] MEDS: LORazepam 1 MG TAB PO SCH (03:42)
[2020-09-26] MEDS: DEXMEDETOMIDINE HCL 400 MCG in 0.9 % SODIUM CHLORIDE 96 ML IV SCH ×2 (03:43→08:24)
[2020-09-26 05:26] LABS: Hematocrit (blood only) 40.2 % (42-52); Hemoglobin 13.7 g/dL (14.0-18.0); Mean Corpuscular Hemoglobin 35.9 pg (25-34); Mean Corpuscular Hgb Conc 34.1 g/dL (32-36); Mean Corpuscular Volume 105.2 fL (80-100); Mean Platelet Volume 10.2 fL (7.4-10.4); Platelet Count 253 K/uL (130-400); RDW Coefficient of Variation 13.4 % (11.5-14.5); RDW Standard Deviation 51.5 fL (36.4-46.3); Red Blood Count 3.82 M/uL (4.7-6.1); White Blood Count 13.03 K/uL (4.8-10.8)
[2020-09-26 05:43] LABS: Albumin Globulin Ratio 0.5 (0.9-2); BUN Creatinine Ratio 15.6 (10-20); Bilirubin,Total 2.1 mg/dl (0.2-1); Calcium 7.4 mg/dl (8.5-10.1); Creatinine Clr Calc Pharmacy 182.2 ml/min; Est GFR (African American) 141.9; Est GFR (Non-African American) 122.4; Globulin 4.1 gm/dl (2.5-4.0); Magnesium 1.9 mg/dl (1.8-2.4); Phosphorus 2.9 mg/dl (2.5-4.9); Potassium 3.6 mmol/L (3.5-5.1); Total Protein 6.1 gm/dl (6.4-8.2)
[2020-09-26] MEDS: ICU ELECTROLYTE REPLACEMENT PROTOCOL SCH (05:56)
[2020-09-26 06:05] LABS: Basophils # (auto) 0.02 K/uL (0-0.2); Basophils % (auto) 0.2 %; Eosinophils # (auto) 0.12 K/uL (0-0.5); Eosinophils % (auto) 0.9 %; Immature Granulocytes # (auto) 0.12 K/uL (0.00-0.02); Immature Granulocytes % (auto) 0.9 %; Lymphocytes # (auto) 2.09 K/uL (1.2-3.4); Monocytes # (auto) 1.76 K/uL (0.11-0.59); Monocytes % (auto) 13.5 %; Neutrophils # (auto) 8.92 K/uL (1.4-6.5); Neutrophils % (auto) 68.5 %; RBC Morphology Unremarkable
[2020-09-26] MEDS: POTASSIUM CHLORIDE / WTR 10 MEQ/100 ML PLCT IV SCH ×4 (06:10→09:10)
[2020-09-26] MEDS: MAGNESIUM SULFATE / D5W 1 GM/100 ML BAG IV SCH ×2 (06:10→07:44)
--- NOTE | 2020-09-26 08:18 | Critical Care Progress Note ---
Date of Service September 26, 2020 Assessment & Plan (1) Admitted to intensive care unit: Reason Critically Ill: 40-year-old male who is currently hospitalized with colonic obstruction who is now with increasing agitation and altered mental status in the setting of concerns for alcohol withdrawal. Patient also with bilateral pulmonary infiltrates and concern for possible aspiration versus pulmonary edema. 24-hour events: None Recommendations: NEURO - Alcohol withdrawal, severe. Discontinue Precedex today continue scheduled Ativan but will decrease dose down to 1 mg every 8 hours and continue symptom dose therapy. Continue thiamine and folate replacement. Continue Zyprexa for now. Restarting clonidine which was a at home med given 1 dose propranolol 10 mg. CARDIAC/VASCULAR - Hemodynamically stable. Echocardiogram revealed no significant findings and BNP level was normal, arguing against significant atypical pulmonary edema. RESPIRATORY - Hypoxemic respiratory failure with patchy bilateral infiltrates. Probable aspiration. X-ray is clear and the patient's gas exchange is normal. Tolerating room air GI/NUTRITION - Obstruction versus ileus. Bowels are moving regularly. He is on Relistor per GI. Continue current treatment. RENAL/LYTES - Renal status holding with normal electrolytes and acid-base status acceptable. Continue to follow. - Discontinue Joyce ENDO - No history of diabetes or thyroid disease BSGs per unit protocol. HEME - No current issues ID - Completed 4 days of ertapenem. He had been on Flagyl and Rocephin for 1 day prior. Now off antibiotics and following clinically LINES/IV ACCESS - PIVs x2 DVT PROPHYLAXIS - Lovenox SCDs Patient was discussed on multidisciplinary rounds (2) Delirium tremens: (3) Enterocolitis: (4) Colonic obstruction: Admission and Anticipated Discharge Date Admission Date: September 19, 2020 Subjective Awake pleasant following commands Review of Systems Review of Systems: Denies abdominal pain chest pain Physical Exam Physical Exam: General: Alert. nontoxic. Skin: Warm, dry, Head: Atraumatic Ears, nose, mouth and throat: airway patent Cardiovascular: Normal peripheral perfusion Respiratory: no respiratory distress Gastrointestinal: Non distended, no tenderness to palpation Musculoskeletal: No deformity Results & Data Results & Data ([facility]) Vital Signs (Past 12 Hours) Vital Signs Temp Pulse Resp BP Pulse Ox 09/26/20 07:30 36.9 C 101 H 20 98 09/26/20 07:12 36.9 C 101 H 16 123/71 97 09/26/20 02:00 38.2 C H 118 H 24 123/73 97 09/26/20 01:00 38.3 C H 119 H 20 135/69 98 09/26/20 00:00 38.4 C H 119 H 24 131/75 97 09/25/20 21:12 38.6 C H 105 H 26 H 134/84 95 Laboratory Results 09/26/20 09/26/20 09/25/20 Range/Units 04:54 04:54 11:39 WBC 13.03 H (4.8-10.8) K/uL RBC 3.82 L (4.7-6.1) M/uL Hgb 13.7 L (14.0-18.0) g/dL Hct 40.2 L (42-52) % MCV 105.2 H (80-100) fL MCH 35.9 H (25-34) pg MCHC 34.1 (32-36) g/dL RDW Std Deviation 51.5 H (36.4-46.3) fL RDW Coeff of [place] 13.4 (11.5-14.5) % Plt Count 253 D (130-400) K/uL MPV 10.2 (7.4-10.4) fL Immature Gran % (Auto) 0.9 % Neut % (Auto) 68.5 % Lymph % (Auto) 16.0 % [place] % (Auto) 13.5 % Eos % (Auto) 0.9 % Baso % (Auto) 0.2 % Neut # (Auto) 8.92 H (1.4-6.5) K/uL Lymph # (Auto) 2.09 (1.2-3.4) K/uL [place] # (Auto) 1.76 H (0.11-0.59) K/uL Eos # (Auto) 0.12 (0-0.5) K/uL Baso # (Auto) 0.02 (0-0.2) K/uL Immature Gran # (Auto) 0.12 H (0.00-0.02) K/uL RBC Morphology Unremarkable Sodium 139 (136-145) mmol/L Potassium 3.6 (3.5-5.1) mmol/L Chloride 107 (98-107) mmol/L Carbon Dioxide 21 (21-32) mmol/L Anion Gap 11.0 (3-11) BUN 10 D (7-18) mg/dl Creatinine 0.63 (0.6-1.4) mg/dl Est Cr Clr Drug Dosing 182.2 ml/min Est GFR ( Amer) 141.9 Est GFR (Non-Af Amer) 122.4 BUN/Creatinine Ratio 15.6 (10-20) Glucose 78 (70-99) mg/dl POC Glucose 87 (70-99) mg/dl Calcium 7.4 L (8.5-10.1) mg/dl Phosphorus 2.9 (2.5-4.9) mg/dl Magnesium 1.9 (1.8-2.4) mg/dl Total Bilirubin 2.1 H (0.2-1) mg/dl AST 60 H (15-37) U/L ALT 22 (12-78) U/L Alkaline Phosphatase 236 H (45-117) U/L Total Protein 6.1 L (6.4-8.2) gm/dl Albumin 2.0 L (3.4-5.0) gm/dl Globulin 4.1 H (2.5-4.0) gm/dl Albumin/Globulin Ratio 0.5 L (0.9-2) Coding Level of Care Code 44365 Subseq Hosp Care Lvl 3 Diagnoses Admitted to intensive care unit Z78.9 Delirium tremens F10.231 Enterocolitis K52.9 Colonic obstruction K56.609
[2020-09-26] MEDS: FOLIC ACID 1 MG TAB PO SCH (08:29)
[2020-09-26] MEDS: FAMOTIDINE 20 MG in SYRINGE 3 ML IV SCH (08:29)
[2020-09-26] MEDS: THIAMINE HCL 100 MG in SYRINGE 9 ML IV SCH (08:29)
[2020-09-26] MEDS: OLANZapine 5 MG TABLET PO SCH ×2 (08:30→21:22)
[2020-09-26] MEDS: MULTIVITAMIN CHEWABLE TAB PO SCH (08:30)
[2020-09-26] MEDS: ENOXAPARIN INJ 40 MG/0.4 ML SYR SQ SCH (08:30)
[2020-09-26] MEDS ORDERED: PROPRANOLOL HCL 10 MG TAB PO SCH (09:00)
[2020-09-26] MEDS: LORazepam 1 MG TAB PO PRN ×2 (12:58→19:38)
--- NOTE | 2020-09-26 14:40 | Hospitalist Progress Note ---
Date of Service September 26, 2020 Assessment & Plan (1) Colonic obstruction: (2) Abdominal pain: Present on admission with abdominal discomfort mostly due to constipation CT scan showed narrowing of the distal one third of the descending colon with mild upstream colonic dilation with air-fluid levels KUB showed minimal colonic fecal retention. There is gaseous distention of the small bowel and colon. The appearance favors an ileus. Gastro on board Currently sedated and intubated on Vent support Bisacodyl 10mg [place] given, may follow with tap water enema if no BM produced Case discussed with GI that recommended to avoid Lactulose because it can worsening the distension GI recommended relistor every other day Surgery on board, continue conservative management Rocephin and IV Flagyl was discontinued, then starting on Ertapenem that was discontinued after 4 days had a BM today, but abdominal distended Will get a abdominal KUB in am Acute respiratory failure Possible related to aspiration pneumonia CXR showed multifocal airspace opacities consistent with a multifocal pneumonia. CTA chest showed no evidence of acute pulmonary embolism. Multifocal airspace opacities indicative of a multifocal pneumonia. Small left pleural effusion and trace right pleural effusion Intubated on mechanical ventilation Sputum cx grew normal yakelin IV Ertapenem discontinued More calm and follow commands S/P extubated Continue oxygen supplement Elevated liver function tests. Possible related to alcohol abuse AST 60, ALT 22 and ALT 236 today Continue monitor Liver enzymes Electrolytes imbalance Phos 2.9 and K 3.6 Continue monitor Elevated WBC Elevated Lactate Possible related to sepsis (Elevated WBC and Tachycardia ) Procalcitonin wnl IV Rocephin and Flagyl discontinued then transition to Ertapemen Blood cx collected today - no growth WBC trending up to 13K IV ertapenem discontinued after 4 days History of Alcohol abuse Possible DT Pt became very agitated last night Sedated on Mechanical Vent support He said that he drank once since rehab back in 06/2019 found bottle of Vodka in the house Pt lied to me and staff about drinking alcohol Multiples times I asked him if he drank alcohol in the last few days to tell me because if he goes to DT that can cause him to , but he continue declining Reviewed his meds to see if he was on any Benzo that he could have been withdrawal from that Precedex and propofol drip were discontinued Continue Folic acid and thiamine Ativan 1 mg prn adding Will need inpatient alcohol rehab Agitation Became very agitated once sedation decreased Not sure if agitation is related to alcohol withdrawal vs Anxiety Pt remain intubated due to the agitation Continue Precedex and propofol discontinued Continue Olanzapine BID Stable Depression Anxiety Continue Doxepin Clonidine resumed Ativan PRN Gastroesophageal reflux disease Continue proton pump inhibitor. DVT px on SCDs Disposition Will transfer out of the ICU Admission and Anticipated Discharge Date Admission Date: September 19, 2020 Subjective Pt was seen and examined for s/p mechanical vent extubation Sitting in chair with no distress Pt was extubated, awake and follow commands He just ate few minutes ago Now he admitted that his last drink of alcohol was on Monday 09/18 He said that he spoke to his already He is not interested to go to rehab Denies any chest pain, palpitation, dizziness and SOB Review of Systems Review of Systems: All systems reviewed & are unremarkable except as noted in Subjective Physical Exam Physical Exam: General- sedated Head- atraumatic Eyes- PERRL, EOMI, ENT- s/p extubation, EOMI, No nystagmus Neck- supple, no JVD Lungs- No wheezing Heart- regular rhythm; no murmur Abdomen- normal bowel sounds, +abdominal distention Extremities- no calf tenderness Neuro- AAOx3, speech fluent, move all 4 extremities, follow commands, Results & Data Results & Data ([facility]) Vital Signs (Past 12 Hours) Vital Signs Temp Pulse Resp BP Pulse Ox 09/26/20 12:27 89 20 138/95 96 09/26/20 11:12 87 17 133/89 96 09/26/20 09:12 103 H 22 135/91 97 09/26/20 08:12 36.7 C 99 H 24 133/79 95 09/26/20 08:00 106 H 09/26/20 07:30 36.9 C 101 H 20 98 09/26/20 07:12 36.9 C 101 H 16 123/71 97 (1) Abdominal pain Abdominal location: lower abdomen, unspecified Qualified Code(s): R10.30 - Lower abdominal pain, unspecified
[2020-09-26] MEDS ORDERED: cloNIDine HCL 0.2 MG TAB PO SCH (21:00)
[2020-09-26] MEDS: THIAMINE HCL 100 MG TAB PO SCH (21:21)
[2020-09-26] MEDS: cloNIDine HCL 0.1 MG TAB PO SCH (21:22)
[2020-09-27] MEDS: LORazepam 1 MG TAB PO PRN (00:57)
[2020-09-27] MEDS ORDERED: ATIVAN IV ALCOHOL WITHDRAWL IV PRN (02:08)
[2020-09-27] MEDS ORDERED: LORazepam 3 MG/6 ML VIAL IV PRN (02:08)
[2020-09-27] MEDS: ACETAMINOPHEN 325 MG TAB PO PRN (04:58)
[2020-09-27] MEDS ORDERED: ACETAMINOPHEN 1000 MG/100 ML IV IV ONE (04:58)
[2020-09-27] MEDS ORDERED: LACTATED RINGER'S 1,000 ML IV ONE (04:59)
[2020-09-27] MEDS ORDERED: OLANZapine 10 MG/2.1 ML SDV IM STA (05:00)
--- NOTE | 2020-09-27 05:08 | Communication Note ---
Date of Service: September 27, 2020 Notified by RN of high doses of Ativan required to keep patient calm for alcohol withdrawal. [facility] Transfer patient to PCU for closer monitoring/management of alcohol withdrawal. Will relay to AM provider.
[2020-09-27] MEDS: LORazepam 2 MG/4 ML VIAL IV PRN ×2 (06:05→06:43)
[2020-09-27 07:24] LABS: Basophils # (auto) 0.03 K/uL (0-0.2); Basophils % (auto) 0.2 %; Eosinophils # (auto) 0.18 K/uL (0-0.5); Eosinophils % (auto) 1.4 %; Hematocrit (blood only) 38.3 % (42-52); Hemoglobin 13.1 g/dL (14.0-18.0); Immature Granulocytes # (auto) 0.09 K/uL (0.00-0.02); Immature Granulocytes % (auto) 0.7 %; Lymphocytes # (auto) 1.91 K/uL (1.2-3.4); Lymphocytes % (auto) 14.6 %; Mean Corpuscular Hgb Conc 34.2 g/dL (32-36); Mean Corpuscular Volume 105.2 fL (80-100); Mean Platelet Volume 9.8 fL (7.4-10.4); Monocytes # (auto) 1.94 K/uL (0.11-0.59); Monocytes % (auto) 14.8 %; Neutrophils # (auto) 8.96 K/uL (1.4-6.5); Neutrophils % (auto) 68.3 %; Platelet Count 276 K/uL (130-400); RDW Coefficient of Variation 13.1 % (11.5-14.5); RDW Standard Deviation 50.4 fL (36.4-46.3); Red Blood Count 3.64 M/uL (4.7-6.1); White Blood Count 13.11 K/uL (4.8-10.8)
[2020-09-27 07:41] LABS: INR 1.3 (0.9-1.1); Prothrombin Time 13.2 Seconds (9.0-12.0)
--- NOTE | 2020-09-27 07:47 | XRay Report ---
SINGLE VIEW CHEST CLINICAL HISTORY: Fever. FINDINGS: An AP, portable, upright chest radiograph is compared to study dated 09/24/2020 and correlat ed with chest CT dated 09/22/2020. The examination is degraded by portable technique and patient rotat ion. Endotracheal and enteric tubes have been removed. The heart is enlarged. There are low lung vo lumes. Consolidation and small pleural effusions is again seen at the lung bases. No pneumothorax is seen. The bony thorax is grossly intact. IMPRESSION: 1. Endotracheal and enteric tubes have been removed. 2. Mild cardiomegaly. 3. Consolidation and small pleural effusions are again seen at the lung bases ACT 112: Negative or not required by law. Electronically signed by: Jayme Kenney M.D. 09/27/2020 7:45 AM
[2020-09-27 07:54] LABS: BUN Creatinine Ratio 8.9 (10-20); Calcium 8.3 mg/dl (8.5-10.1); Creatinine Clr Calc Pharmacy 188.3 ml/min; Est GFR (African American) 143.8; Potassium 3.2 mmol/L (3.5-5.1)
[2020-09-27 07:59] LABS: Albumin Globulin Ratio 0.5 (0.9-2); Bilirubin,Total 1.6 mg/dl (0.2-1); Globulin 4.2 gm/dl (2.5-4.0); Total Protein 6.2 gm/dl (6.4-8.2)
[2020-09-27] MEDS: cloNIDine HCL 0.1 MG TAB PO SCH ×2 (08:12→21:42)
[2020-09-27] MEDS: THIAMINE HCL 100 MG TAB PO SCH ×2 (08:13→21:42)
[2020-09-27] MEDS: ENOXAPARIN INJ 40 MG/0.4 ML SYR SQ SCH (08:13)
[2020-09-27] MEDS: FOLIC ACID 1 MG TAB PO SCH (08:13)
[2020-09-27] MEDS: OLANZapine 5 MG TABLET PO SCH ×2 (08:13→21:42)
[2020-09-27] MEDS: MULTIVITAMIN CHEWABLE TAB PO SCH (08:13)
[2020-09-27] MEDS: LORazepam 1 MG/2 ML VIAL IV PRN ×2 (08:20→10:12)
--- NOTE | 2020-09-27 09:09 | Surgery Progress Note ---
Date of Service September 27, 2020 Assessment & Plan (1) Enterocolitis: From an abdominal standpoint patient appears to be improving. He is having + bowel function. Denies abd pain/nausea/vomiting. Diet is slowly being advanced. Completed course of abx for presumed infectious etiology, ? entero colitis. He was extubated on 09/25. He is still requiring ativan for alcohol withdrawal and was transferred back to the ICU this AM for increasing requirements. Nothing to add from a surgical standpoint at this time. Will continue to follow from the periphery if needed. Admission and Anticipated Discharge Date Admission Date: September 19, 2020 Subjective Patient seen and examined, appears restless in bed. He denies any abdominal pain/nausea/vomiting. He states he is passing both loose and normal BM's. He is apparently tolerating a liquid diet. Physical Exam Physical Exam: awake; restless in bed Gastrointestinal (Abdomen): Inspection/Auscultation: + abdomen distended (distention improving) Percussion/Palpation: abdomen soft; abdomen nontender Results & Data ([facility]) Vital Signs (Past 12 Hours) Vital Signs Temp Pulse Pulse Resp BP BP Pulse Ox 09/27/20 07:01 36.8 C 95 H 28 H 94 09/27/20 07:00 95 H 27 H 133/88 95 09/27/20 06:23 96 H 26 H 104/86 93 09/27/20 06:04 95 H 15 93 09/27/20 06:03 95 H 14 133/74 92 09/27/20 04:38 37.8 C H 100 H 22 144/67 H 92 09/26/20 22:20 37.3 C 84 18 146/83 H 92 PG Care Time/CCT Total # of Minutes Spent Total Time Spent with Patient: Total time spent is greater than 50% in coordination of care (as documented) at patient's floor/unit and/or counseling patient: Coding Level of Care Code 79234 Subseq Hosp Care Lvl 1 Diagnoses Enterocolitis K52.9
[2020-09-27] MEDS ORDERED: POTASSIUM CHLORIDE CRTAB 20 MEQ TABCR PO STA (09:15)
--- NOTE | 2020-09-27 10:42 | Critical Care Progress Note ---
Date of Service September 27, 2020 Assessment & Plan (1) Admitted to intensive care unit: Reason Critically Ill: 40-year-old male with PMHx significant for heavy alcohol use who was admitted for colonic obstruction and alcohol withdrawal who was initially admitted to the ICU for acute hypoxic respiratory failure due to possible aspiration vs alcohol withdrawal. He was extubated on 09/25 and downgraded to med/surg on 09/26 but was again transferred to the ICU on 09/27 due to increasing PRN Ativan requirements due to agitation/hallucinations, likely 2/2 persistent alcohol withdrawal/delirium tremens. Neuro - [facility] ICU: POSITIVE - patient appears to have hallucinations and is responding to internal stimuli - CT abd/pelv 09/22 showing hepatomegaly, severe hepatic steatosis, trace abdominopelvic ascites - extended nature of alcohol withdrawal symptoms/delirium tremens is certainly possible, but there may be an aspect of alcoholic hepatitis as well (discriminant score: 7.1) - Ativan discontinued today, started Phenobarbital taper today (~3 day taper duration) - continue Clonidine/Zyprexa/PRN Ativan for additional treatment of withdrawal symptoms - continue thiamine 100mg PO BID - follow clinically for improvement Cardiac - Hemodynamically stable, TTE normal Respiratory - previous acute hypoxic respiratory failure with patchy bilateral bibasilar infiltrates, likely due to aspiration - s/p IV ertapenem, completed on 09/25 - CXR on 09/27 showing stable appearance of mild bibasilar infiltrates/trace pleural effusions, patient tolerating room air well GI - obstruction vs ileus, resolving - moving bowels regularly, no abdominal pain or N/V - follow I/Os RENAL/LYTES - renal function normal, No significant electrolyte derangement - Replace lytes as needed - No concerns at this time ENDO - No h/o diabetes or thyroid disease - BSGs per unit protocol HEME - - Stable H&H - monitor CBC daily ID - Completed 4 days of ertapenem for enterocolitis on 09/25 (was on Flagyl/Rocephin for 1 day prior) - Now off antibiotics and afebrile/without GI symptoms, no leukocytosis/Procalci tonin WNL LINES/IV ACCESS PIV x2 intact. DVT PROPHYLAXIS - Lovenox 40mg SQ QAM, SCDs CODE STATUS: full code Thank you for allowing us to be part of this patient's care. Please refer to Dr. Castaneda's documentation for any further recommendations. (2) Colon obstruction: (3) Enterocolitis: Admission and Anticipated Discharge Date Admission Date: September 19, 2020 Supervising Physician Co-Signing Physician Notes Dr. Uribe was resident physician during care of patient. I separately evaluated patient for canas portions of the history and the exam. I was present during the critical portion of medical decision making, and I discussed the case with the resident. I generally agree with the findings and plan. Worsening and withdrawal symptoms now having visual hallucinations return to ICU and now requiring intramuscular phenobarbital. Patient critically ill and requiring heavy sedatives for delirium tremens. Patient was discussed in multidisciplinary rounds I have personally spent 35 minutes of critical care time in the direct managem ent of this patient. This is a life/limb threatening event. This includes time spent evaluating patient, direct bedside care, chart review, placing orders, interpretation of diagnostic studies, discussion with consultants, patient, and/or family members regarding treatment decisions, as well as other required patient management activities. This time is exclusive of all separately billable procedures, and teaching time and separate from and in addition to any other critical care service time. Subjective Patient had increasing PRN Ativan requirements due to agitation/AMS in the setting of alcohol withdrawal/alcoholic hepatitis, required transfer to ICU this morning for further eval/management. This morning the patient appears to be responding to internal stimuli and is oriented to self only - reports losing his phone in his bed although no phone is visible. Also keeps looking up at the ceiling. Denies fever/chills, chest pain, shortness of breath, N/V, abdominal pain. Review of Systems Review of Systems: Pertinent positives and negatives mentioned in HPI. Physical Exam Physical Exam: General: A&O to self only, appears to be responding to internal stimuli. NAD. HEENT: Atraumatic, normocephalic. Pulm: Decreased air entry bilaterally with faint crackles in both lungs. Symmetrical chest rise. No increase work of breathing. No respiratory distress. Cardiac: RRR, -mrg. Radial pulses intact and symmetrical. Abdominal: soft, non-tender, mildly distended, BS x 4 Skin: warm, dry Results & Data Results & Data ([facility]) Vital Signs (Past 12 Hours) Vital Signs Temp Pulse Pulse Resp BP BP Pulse Ox 09/27/20 09:01 94 H 23 09/27/20 09:00 99 H 18 112/77 09/27/20 08:01 93 H 28 H 09/27/20 08:00 93 H 31 H 132/91 09/27/20 07:01 36.8 C 95 H 28 H 94 09/27/20 07:00 95 H 27 H 133/88 95 09/27/20 06:23 96 H 26 H 104/86 93 09/27/20 06:04 95 H 15 93 09/27/20 06:03 95 H 14 133/74 92 09/27/20 04:38 37.8 C H 100 H 22 144/67 H 92 Resident Activity Tracking Resident Involvement: Resident Care Provided Care Provided: Adult Hospital Medicine
[2020-09-27] MEDS ORDERED: PHENobarbital sodium 65 MG/ML VIAL IM ONE (10:45)
[2020-09-27] MEDS: PHENobarbital sodium 65 MG/ML VIAL IM PRN ×2 (12:49→23:32)
[2020-09-27] MEDS ORDERED: PHENobarbital sodium 65 MG/ML VIAL IM SCH ×3 (13:00→16:00)
--- NOTE | 2020-09-27 15:13 | Billing Data ---
Date of Service September 27, 2020 Coding Level of Care Code Critical Care 1st - mins
--- NOTE | 2020-09-27 15:15 | Billing Data ---
Date of Service September 27, 2020 Coding Level of Care Code Critical Care 1st - mins
[2020-09-27] MEDS ORDERED: PHENobarbital sodium 130 MG/ML VIAL IM STA (15:56)
[2020-09-27 17:40] LABS: Appearance Urine Clear (Clear); Bilirubin Urine Negative (Negative); Blood Urine Negative (Negative); Color Urine Yellow; Glucose Urine UA Negative (Negative); Ketones Urine Trace (Negative); Leukocyte Esterase Urine Negative (Negative); Nitrite Urine Negative (Negative); Protein Urine Negative (Negative); Specific Gravity Urine 1.012 (1.000-1.030); Urobilinogen Urine Negative (Negative); pH Urine 8.5 (4.5-7.5)
--- NOTE | 2020-09-27 18:51 | Hospitalist Progress Note ---
Date of Service September 27, 2020 Assessment & Plan (1) Colonic obstruction: (2) Abdominal pain: Present on admission with abdominal discomfort mostly due to constipation CT scan showed narrowing of the distal one third of the descending colon with mild upstream colonic dilation with air-fluid levels KUB showed minimal colonic fecal retention. There is gaseous distention of the small bowel and colon. The appearance favors an ileus. Gastro on board Currently sedated and intubated on Vent support Bisacodyl 10mg IA given, may follow with tap water enema if no BM produced Case discussed with GI that recommended to avoid Lactulose because it can worsening the distension GI recommended relistor every other day Surgery on board, continue conservative management Rocephin and IV Flagyl was discontinued, then starting on Ertapenem that was discontinued after 4 days had a BM today, but abdominal distended Will get a abdominal KUB in am Acute respiratory failure Possible related to aspiration pneumonia CXR showed multifocal airspace opacities consistent with a multifocal pneumonia. CTA chest showed no evidence of acute pulmonary embolism. Multifocal airspace opacities indicative of a multifocal pneumonia. Small left pleural effusion and trace right pleural effusion Intubated on mechanical ventilation Sputum cx grew normal yakelin IV Ertapenem discontinued More calm and follow commands S/P extubated on 09/25 Currently on RA saturated well Elevated liver function tests. Possible related to alcohol abuse AST 60, ALT 22 and ALT 236 today Continue monitor Liver enzymes Electrolytes imbalance K 3.2 K replaced Continue monitor Elevated WBC Elevated Lactate Possible related to sepsis (Elevated WBC and Tachycardia ) Procalcitonin wnl IV Rocephin and Flagyl discontinued then transition to Ertapemen Blood cx collected today - no growth WBC trending up to 13K IV ertapenem discontinued after 4 days History of Alcohol abuse Possible DT Pt became very agitated last night Sedated on Mechanical Vent support He said that he drank once since rehab back in 06/2019 found bottle of Vodka in the house Pt lied to me and staff about drinking alcohol Multiples times I asked him if he drank alcohol in the last few days to tell me because if he goes to DT that can cause him to , but he continue declining Reviewed his meds to see if he was on any Benzo that he could have been withdrawal from that Precedex and propofol drip were discontinued Continue Folic acid and thiamine Will need inpatient alcohol rehab Agitation Became very agitated once sedation decreased Not sure if agitation is related to alcohol withdrawal vs Anxiety Pt remain intubated due to the agitation Precedex and propofol discontinued Worsening agitation and was sent back to the ICU Ativan discontinued today, started Phenobarbital taper today (~3 day taper du ration) Clonidine/Zyprexa/PRN Ativan for additional treatment of withdrawal symptoms Depression Anxiety Continue Doxepin Clonidine resumed Ativan PRN Gastroesophageal reflux disease Continue proton pump inhibitor. DVT px on SCDs Disposition Continue monitor in the ICU Admission and Anticipated Discharge Date Admission Date: September 19, 2020 Subjective Pt was seen and examined for follow up of agitation Pt was transferred yesterday out of the ICU but was sent back to the ICU due to agitation that required many dose of IV Ativan Medical staff was not comfortable to manage the patient on the floor Pt is confused currently and hallucinated He continues to require IV Ativan Spoke to Vice [employer] Dr. Castaneda that agreed to keep patient in the ICU for now Physical Exam Physical Exam: General- Confused/hallucination Head- atraumatic Eyes- PERRL, EOMI, ENT- s/p extubation, EOMI, No nystagmus Neck- supple, no JVD Lungs- No wheezing Heart- regular rhythm; no murmur Abdomen- normal bowel sounds, +abdominal distention Extremities- no calf tenderness Neuro- Confused, move all 4 extremities, agitation Results & Data Results & Data ([facility]) Vital Signs (Past 12 Hours) Vital Signs Temp Pulse Resp BP Pulse Ox 09/27/20 17:01 92 H 95 09/27/20 17:00 90 137/95 92 09/27/20 16:55 90 144/96 H 93 09/27/20 16:00 36.8 C 87 09/27/20 15:00 89 26 H 93 09/27/20 14:44 89 28 H 129/104 H 92 09/27/20 14:00 81 31 H 09/27/20 13:00 88 38 H 09/27/20 12:01 104 H 21 09/27/20 12:00 36.8 C 92 H 17 134/88 96 09/27/20 11:01 92 H 28 H 09/27/20 11:00 87 29 H 121/71 09/27/20 10:01 94 H 18 09/27/20 10:00 94 H 35 H 128/79 09/27/20 09:01 94 H 23 09/27/20 09:00 99 H 18 112/77 09/27/20 08:01 93 H 28 H 09/27/20 08:00 93 H 31 H 132/91 09/27/20 07:01 36.8 C 95 H 28 H 94 09/27/20 07:00 95 H 27 H 133/88 95 (1) Abdominal pain Abdominal location: lower abdomen, unspecified Qualified Code(s): R10.30 - Lower abdominal pain, unspecified
[2020-09-27] MEDS: DEXMEDETOMIDINE HCL 400 MCG in 0.9 % SODIUM CHLORIDE 96 ML IV SCH ×3 (19:35→19:37)
[2020-09-28] MEDS ORDERED: LORazepam 1 MG/2 ML VIAL IV STA (03:36)
[2020-09-28] MEDS ORDERED: LORazepam 2 MG/4 ML VIAL ONE (03:40)
[2020-09-28 05:06] LABS: Basophils # (auto) 0.02 K/uL (0-0.2); Basophils % (auto) 0.2 %; Eosinophils # (auto) 0.17 K/uL (0-0.5); Eosinophils % (auto) 1.5 %; Hematocrit (blood only) 39.4 % (42-52); Hemoglobin 13.5 g/dL (14.0-18.0); Immature Granulocytes # (auto) 0.06 K/uL (0.00-0.02); Immature Granulocytes % (auto) 0.5 %; Mean Corpuscular Hemoglobin 35.6 pg (25-34); Mean Corpuscular Hgb Conc 34.3 g/dL (32-36); Mean Platelet Volume 9.8 fL (7.4-10.4); Monocytes # (auto) 1.18 K/uL (0.11-0.59); Monocytes % (auto) 10.3 %; Neutrophils # (auto) 8.58 K/uL (1.4-6.5); Neutrophils % (auto) 74.5 %; Platelet Count 265 K/uL (130-400); RDW Coefficient of Variation 12.9 % (11.5-14.5); RDW Standard Deviation 48.8 fL (36.4-46.3); Red Blood Count 3.79 M/uL (4.7-6.1); White Blood Count 11.51 K/uL (4.8-10.8)
[2020-09-28 05:17] LABS: INR 1.3 (0.9-1.1); Prothrombin Time 12.9 Seconds (9.0-12.0)
[2020-09-28 05:38] LABS: Alanine Aminotransferase 24 U/L (12-78); Albumin Level 2.1 gm/dl (3.4-5.0); Aspartate Aminotransferase 55 U/L (15-37); BUN Creatinine Ratio 9.1 (10-20); Blood Urea Nitrogen 5 mg/dl (7-18); Calcium 7.3 mg/dl (8.5-10.1); Carbon Dioxide 24 mmol/L (21-32); Chloride 111 mmol/L (98-107); Creatinine Clr Calc Pharmacy 220.9 ml/min; Est GFR (African American) > 150.0; Est GFR (Non-African American) 132.5; Glucose 81 mg/dl (70-99); Potassium 3.5 mmol/L (3.5-5.1); Sodium 141 mmol/L (136-145)
[2020-09-28 05:41] LABS: Albumin Globulin Ratio 0.5 (0.9-2); Alkaline Phosphatase 239 U/L (45-117); Bilirubin,Total 1.5 mg/dl (0.2-1); Globulin 4.3 gm/dl (2.5-4.0); Phosphorus 2.9 mg/dl (2.5-4.9); Total Protein 6.4 gm/dl (6.4-8.2)
[2020-09-28] MEDS ORDERED: POTASSIUM CHLORIDE CRTAB 20 MEQ TABCR PO STA ×4 (05:47→10:26)
[2020-09-28] MEDS: ENOXAPARIN INJ 40 MG/0.4 ML SYR SQ SCH (07:49)
[2020-09-28] MEDS: THIAMINE HCL 100 MG TAB PO SCH ×2 (07:50→20:38)
[2020-09-28] MEDS: FOLIC ACID 1 MG TAB PO SCH ×2 (07:50→09:18)
[2020-09-28] MEDS: OLANZapine 5 MG TABLET PO SCH (07:50)
[2020-09-28] MEDS: MULTIVITAMIN CHEWABLE TAB PO SCH (07:51)
[2020-09-28] MEDS: cloNIDine HCL 0.1 MG TAB PO SCH ×2 (07:54→20:39)
--- NOTE | 2020-09-28 08:21 | Hospitalist Progress Note ---
Date of Service September 28, 2020 Assessment & Plan (1) C. difficile colitis: (2) Colonic obstruction: (3) Abdominal pain: Present on admission with abdominal discomfort mostly due to constipation CT scan showed narrowing of the distal one third of the descending colon with mild upstream colonic dilation with air-fluid levels KUB showed minimal colonic fecal retention. There is gaseous distention of the small bowel and colon. The appearance favors an ileus. GI consulted Bisacodyl 10mg UT given, may follow with tap water enema if no BM produced Case discussed with GI that recommended to avoid Lactulose because it can worsen the distension GI recommended relistor every other day Surgery consulted- continue conservative management Rocephin and IV Flagyl was discontinued, then started on Ertapenem that was discontinued after 4 days had a BM, but abdominal distended abdominal KUB repeated Now pt having loose stools - c.diff repeat test ordered Acute respiratory failure Possible related to aspiration pneumonia CXR showed multifocal airspace opacities consistent with a multifocal pneumonia. CTA chest showed no evidence of acute pulmonary embolism. Multifocal airspace opacities indicative of a multifocal pneumonia. Small left pleural effusion and trace right pleural effusion Intubated on mechanical ventilation Sputum cx grew normal yakelin IV Ertapenem discontinued More calm and followed commands S/P extubation on 09/25 Currently on RA saturated well Elevated liver function tests. Possible related to alcohol abuse AST 60, ALT 22 and ALT 236 Continue monitor Liver enzymes Electrolytes imbalance K 3.2 K replaced Continue monitor Elevated WBC Elevated Lactate Possible related to sepsis (Elevated WBC and Tachycardia ) Procalcitonin wnl IV Rocephin and Flagyl discontinued then transition to Ertapemen Blood cx - no growth WBC trending up to 13K IV ertapenem discontinued after 4 days WBC now 11K History of Alcohol abuse Possible DT Pt became very agitated Sedated on Mechanical Vent support He said that he drank once since rehab back in 06/2019 found bottle of Vodka in the house Pt lied to physician and staff about drinking alcohol Multiples times p was asked if he drank alcohol in the last few days to tell because if he goes to DT that can cause him to , but pt continued to deny Reviewed his meds to see if he was on any Benzo that he could have been withdrawal from that Precedex and propofol drip were discontinued Continue Folic acid and thiamine Will need inpatient alcohol rehab Agitation Became very agitated once sedation decreased Not sure if agitation is related to alcohol withdrawal vs Anxiety Pt remain intubated due to the agitation Precedex and propofol discontinued Worsening agitation and was sent back to the ICU Ativan prn, cont. Phenobarbital taper (~3 day taper duration) Clonidine/Zyprexa/PRN Ativan for additional treatment of withdrawal symptoms Depression Anxiety Continue Doxepin Clonidine resumed Ativan PRN Gastroesophageal reflux disease Continue proton pump inhibitor. DVT px on SCDs Disposition Continue monitor in the ICU Admission and Anticipated Discharge Date Admission Date: September 19, 2020 Subjective Pt seen in follow up of alcohol withdrawal / DTs, colonic obstruction, enterocolitis Patient required Ativan x1 early this morning for agitation, in addition to scheduled Phenobarbital. Patient continues to be oriented to self only this morning Does not answer most questions appropriately at this time Review of Systems Review of Systems: Unobtainable due to cognitive status Physical Exam Physical Exam: General- Confused and drowsy Head- atraumatic Eyes- PERRL, EOMI, ENT- s/p extubation, EOMI, No nystagmus Neck- supple, no JVD Lungs- No wheezing Heart- regular rhythm; no murmur Abdomen- normal bowel sounds, +abdominal distention Extremities- no calf tenderness Neuro- Confused and drowsy (after meds given for agitation), moves all 4 extremities, agitation Results & Data Results & Data ([facility]) Vital Signs (Past 12 Hours) Vital Signs Temp Pulse Resp BP Pulse Ox 09/28/20 06:00 104 H 111/51 L 09/28/20 05:00 100 H 123/66 09/28/20 04:00 101 H 134/91 09/28/20 03:00 102 H 117/89 92 09/28/20 02:00 110 H 24 128/94 93 09/28/20 01:24 100 H 09/28/20 01:00 103 H 25 H 146/100 H 93 09/28/20 00:00 105 H 20 153/100 H 100 09/27/20 23:00 100 H 26 H 135/81 94 09/27/20 22:00 37.2 C 97 H 36 H 141/90 H 92 09/27/20 21:16 104 H 12 139/97 98 09/27/20 20:56 97 H 141/90 H Laboratory Results 09/28/20 09/28/20 09/28/20 Range/Units 04:56 04:56 04:56 WBC 11.51 H (4.8-10.8) K/uL RBC 3.79 L (4.7-6.1) M/uL Hgb 13.5 L (14.0-18.0) g/dL Hct 39.4 L (42-52) % MCV 104.0 H (80-100) fL MCH 35.6 H (25-34) pg MCHC 34.3 (32-36) g/dL RDW Std Deviation 48.8 H (36.4-46.3) fL RDW Coeff of [place] 12.9 (11.5-14.5) % Plt Count 265 (130-400) K/uL MPV 9.8 (7.4-10.4) fL Immature Gran % (Auto) 0.5 % Neut % (Auto) 74.5 % Lymph % (Auto) 13.0 % [place] % (Auto) 10.3 % Eos % (Auto) 1.5 % Baso % (Auto) 0.2 % Neut # (Auto) 8.58 H (1.4-6.5) K/uL Lymph # (Auto) 1.50 (1.2-3.4) K/uL [place] # (Auto) 1.18 H (0.11-0.59) K/uL Eos # (Auto) 0.17 (0-0.5) K/uL Baso # (Auto) 0.02 (0-0.2) K/uL Immature Gran # (Auto) 0.06 H (0.00-0.02) K/uL PT 12.9 H (9.0-12.0) Seconds INR 1.3 H (0.9-1.1) Sodium 141 (136-145) mmol/L Potassium 3.5 (3.5-5.1) mmol/L Chloride 111 H (98-107) mmol/L Carbon Dioxide 24 (21-32) mmol/L Anion Gap 6.0 (3-11) BUN 5 L (7-18) mg/dl Creatinine 0.52 L (0.6-1.4) mg/dl Est Cr Clr Drug Dosing 220.9 ml/min Est GFR ( Amer) > 150.0 Est GFR (Non-Af Amer) 132.5 BUN/Creatinine Ratio 9.1 L (10-20) Glucose 81 (70-99) mg/dl POC Glucose (70-99) mg/dl Calcium 7.3 L (8.5-10.1) mg/dl Phosphorus 2.9 (2.5-4.9) mg/dl Magnesium 2.0 (1.8-2.4) mg/dl Total Bilirubin 1.5 H (0.2-1) mg/dl AST 55 H (15-37) U/L ALT 24 (12-78) U/L Alkaline Phosphatase 239 H (45-117) U/L Total Protein 6.4 (6.4-8.2) gm/dl Albumin 2.1 L (3.4-5.0) gm/dl Globulin 4.3 H (2.5-4.0) gm/dl Albumin/Globulin Ratio 0.5 L (0.9-2) Procalcitonin (0-0.5) ng/ml Urine Color Urine Appearance (Clear) Urine pH (4.5-7.5) Ur Specific Rousseau (1.000-1.030) Urine Protein (Negative) Urine Glucose (UA) (Negative) Urine Ketones (Negative) Urine Blood (Negative) Urine Nitrite (Negative) Urine Bilirubin (Negative) Urine Urobilinogen (Negative) Ur Leukocyte Esterase (Negative) 09/27/20 09/27/20 09/27/20 Range/Units 17:15 17:05 17:03 WBC (4.8-10.8) K/uL RBC (4.7-6.1) M/uL Hgb (14.0-18.0) g/dL Hct (42-52) % MCV (80-100) fL MCH (25-34) pg MCHC (32-36) g/dL RDW Std Deviation (36.4-46.3) fL RDW Coeff of [place] (11.5-14.5) % Plt Count (130-400) K/uL MPV (7.4-10.4) fL Immature Gran % (Auto) % Neut % (Auto) % Lymph % (Auto) % [place] % (Auto) % Eos % (Auto) % Baso % (Auto) % Neut # (Auto) (1.4-6.5) K/uL Lymph # (Auto) (1.2-3.4) K/uL [place] # (Auto) (0.11-0.59) K/uL Eos # (Auto) (0-0.5) K/uL Baso # (Auto) (0-0.2) K/uL Immature Gran # (Auto) (0.00-0.02) K/uL PT (9.0-12.0) Seconds INR (0.9-1.1) Sodium (136-145) mmol/L Potassium (3.5-5.1) mmol/L Chloride (98-107) mmol/L Carbon Dioxide (21-32) mmol/L Anion Gap (3-11) BUN (7-18) mg/dl Creatinine (0.6-1.4) mg/dl Est Cr Clr Drug Dosing ml/min Est GFR ( Amer) Est GFR (Non-Af Amer) BUN/Creatinine Ratio (10-20) Glucose (70-99) mg/dl POC Glucose 78 68 L* (70-99) mg/dl Calcium (8.5-10.1) mg/dl Phosphorus (2.5-4.9) mg/dl Magnesium (1.8-2.4) mg/dl Total Bilirubin (0.2-1) mg/dl AST (15-37) U/L ALT (12-78) U/L Alkaline Phosphatase (45-117) U/L Total Protein (6.4-8.2) gm/dl Albumin (3.4-5.0) gm/dl Globulin (2.5-4.0) gm/dl Albumin/Globulin Ratio (0.9-2) Procalcitonin (0-0.5) ng/ml Urine Color Yellow Urine Appearance Clear (Clear) Urine pH 8.5 H (4.5-7.5) Ur Specific Rousseau 1.012 (1.000-1.030) Urine Protein Negative (Negative) Urine Glucose (UA) Negative (Negative) Urine Ketones Trace H (Negative) Urine Blood Negative (Negative) Urine Nitrite Negative (Negative) Urine Bilirubin Negative (Negative) Urine Urobilinogen Negative (Negative) Ur Leukocyte Esterase Negative (Negative) 09/27/20 Range/Units 06:51 WBC (4.8-10.8) K/uL RBC (4.7-6.1) M/uL Hgb (14.0-18.0) g/dL Hct (42-52) % MCV (80-100) fL MCH (25-34) pg MCHC (32-36) g/dL RDW Std Deviation (36.4-46.3) fL RDW Coeff of [place] (11.5-14.5) % Plt Count (130-400) K/uL MPV (7.4-10.4) fL Immature Gran % (Auto) % Neut % (Auto) % Lymph % (Auto) % [place] % (Auto) % Eos % (Auto) % Baso % (Auto) % Neut # (Auto) (1.4-6.5) K/uL Lymph # (Auto) (1.2-3.4) K/uL [place] # (Auto) (0.11-0.59) K/uL Eos # (Auto) (0-0.5) K/uL Baso # (Auto) (0-0.2) K/uL Immature Gran # (Auto) (0.00-0.02) K/uL PT (9.0-12.0) Seconds INR (0.9-1.1) Sodium (136-145) mmol/L Potassium (3.5-5.1) mmol/L Chloride (98-107) mmol/L Carbon Dioxide (21-32) mmol/L Anion Gap (3-11) BUN (7-18) mg/dl Creatinine (0.6-1.4) mg/dl Est Cr Clr Drug Dosing ml/min Est GFR ( Amer) Est GFR (Non-Af Amer) BUN/Creatinine Ratio (10-20) Glucose (70-99) mg/dl POC Glucose (70-99) mg/dl Calcium (8.5-10.1) mg/dl Phosphorus (2.5-4.9) mg/dl Magnesium (1.8-2.4) mg/dl Total Bilirubin (0.2-1) mg/dl AST (15-37) U/L ALT (12-78) U/L Alkaline Phosphatase (45-117) U/L Total Protein (6.4-8.2) gm/dl Albumin (3.4-5.0) gm/dl Globulin (2.5-4.0) gm/dl Albumin/Globulin Ratio (0.9-2) Procalcitonin 0.43 (0-0.5) ng/ml Urine Color Urine Appearance (Clear) Urine pH (4.5-7.5) Ur Specific [place] (1.000-1.030) Urine Protein (Negative) Urine Glucose (UA) (Negative) Urine Ketones (Negative) Urine Blood (Negative) Urine Nitrite (Negative) Urine Bilirubin (Negative) Urine Urobilinogen (Negative) Ur Leukocyte Esterase (Negative) Medications Administered Current Inpatient Medications Acetaminophen (Acetaminophen 325 Mg Tab) 650 mg PO Q6H PRN PRN Reason: Fever Stop: 10/24/20 02:12 Last Admin: 09/25/20 21:13 Dose: 650 mg Documented by: Clonidine HCl (Clonidine Hcl 0.1 Mg Tab) 0.2 mg PO BID [facility] Stop: 10/27/20 08:59 Last Admin: 09/28/20 07:54 Dose: 0.2 mg Documented by: Enoxaparin Sodium (Enoxaparin Inj 40 Mg/0.4 Ml Syr) 40 mg SQ QAM [facility] Stop: 10/23/20 08:59 Last Admin: 09/28/20 07:49 Dose: 40 mg Documented by: Folic Acid (Folic Acid 1 Mg Tab) 1 mg PO QAM [facility] Stop: 10/22/20 08:59 Last Admin: 09/27/20 08:13 Dose: 1 mg Documented by: Multivitamins/Folic Acid/Vitamin C (Multivitamin Chewable Tab) 1 tab PO QAM [facility] Stop: 10/22/20 08:59 Last Admin: 09/28/20 07:51 Dose: 1 tab Documented by: Olanzapine (Olanzapine 5 Mg Tablet) 5 mg PO BID [facility] Stop: 10/24/20 11:59 Last Admin: 09/28/20 07:50 Dose: 5 mg Documented by: Phenobarbital (Phenobarbital 32.4 Mg Tab) 64.8 mg PO Q12H [facility] Stop: 09/28/20 21:01 Last Admin: 09/28/20 07:50 Dose: 64.8 mg Documented by: Phenobarbital (Phenobarbital 32.4 Mg Tab) 32.4 mg PO Q12H [facility] Stop: 09/30/20 09:01 Phenobarbital Sodium (Phenobarbital Sodium 65 Mg/Ml Vial) 65 mg IM Q6H PRN PRN Reason: Agitation Stop: 10/27/20 10:06 Last Admin: 09/27/20 23:32 Dose: 65 mg Documented by: Thiamine HCl (Thiamine Hcl 100 Mg Tab) 100 mg PO BID [facility] Stop: 10/26/20 20:59 Last Admin: 09/28/20 07:50 Dose: 100 mg Documented by: (1) Abdominal pain Abdominal location: lower abdomen, unspecified Qualified Code(s): R10.30 - Lower abdominal pain, unspecified
--- NOTE | 2020-09-28 08:26 | Critical Care Progress Note ---
Date of Service September 28, 2020 Assessment & Plan (1) Admitted to intensive care unit: Reason Critically Ill: 40-year-old male with PMHx significant for heavy alcohol use who was admitted for colonic obstruction and alcohol withdrawal who was initially admitted to the ICU for acute hypoxic respiratory failure due to possible aspiration vs alcohol withdrawal. He was extubated on 09/25 and downgraded to med/surg on 09/26 but was again transferred to the ICU on 09/27 due to increasing PRN Ativan requirements due to agitation/hallucinations, likely 2/2 persistent alcohol withdrawal/delirium tremens. Neuro - [facility]: POSITIVE - delirium tremens - hallucinations and disorientation peristing today - given persistence of symptoms, we will extend Phenobarbital taper for 24 hours: 42.8mg PO Q12H until 09/29 PM dose, followed by 32.4mg PO Q12H x3 doses - additional 64.8mg PO x1 given this morning as well - continue Clonidine for additional treatment of withdrawal symptoms - held Zyprexa given prolonged QTc 520ms - continue Thiamine/Folate - follow clinically for improvement Cardiac - Hemodynamically stable, TTE normal - EKG showing prolonged QTc 520ms, Zyprexa held as mentioned above Respiratory - previous acute hypoxic respiratory failure with patchy bilateral bibasilar infiltrates, likely due to aspiration - s/p IV ertapenem, completed on 09/25 - CXR on 09/27 showing stable appearance of mild bibasilar infiltrates/trace pleural effusions, patient tolerating room air well GI - obstruction vs ileus, resolving - moving bowels regularly, no abdominal pain or N/V - 3 loose stools this morning - given previous concern for enterocolitis, ordered c-diff toxins to evaluate for c-diff (pending) - follow I/Os RENAL/LYTES - renal function normal - Hypokalemia 3.2 this AM - repleted - continue to replace lytes as needed - No concerns at this time ENDO - No h/o diabetes or thyroid disease - BSGs per unit protocol HEME - - Stable H&H - Persistently increased coags (PT 12.9, INR 1.3) - Phytonadione 10mg PO x1 today - monitor CBC and PT/INR daily ID - Completed 4 days of ertapenem for enterocolitis on 09/25 (was on Flagyl/Rocephin for 1 day prior) - Now off antibiotics and afebrile without leukocytosis - C-diff toxins to evaluate for c-diff given loose stools, as mentioned above LINES/IV ACCESS PIV x2 intact. DVT PROPHYLAXIS - Lovenox 40mg SQ QAM, SCDs CODE STATUS: full code Thank you for allowing us to be part of this patient's care. Please refer to Dr. Castaneda's documentation for any further recommendations. (2) Colon obstruction: (3) Enterocolitis: Admission and Anticipated Discharge Date Admission Date: September 19, 2020 Supervising Physician Co-Signing Physician Notes Dr. Uribe was resident physician during care of patient. I separately evaluated patient for canas portions of the history and the exam. I was present during the critical portion of medical decision making, and I discussed the case with the resident. I generally agree with the findings and plan. Patient still having visual hallucinations will extend the 64.8 mg oral dose for an additional 24 hours and given 1 additional dose of phenobarb at this time I believe we are close to obtaining control of his symptoms. Patient was discussed in multidisciplinary rounds I have personally spent 40 minutes of critical care time in the direct management of this patient. This is a life/limb threatening event. This includes time spent evaluating patient, direct bedside care, chart review, placing orders, interpretation of diagnostic studies, discussion with consultants, patient, and/or family members regarding treatment decisions, as well as other required patient management activities. This time is exclusive of all separately billable procedures, and teaching time and separate from and in addition to any other critical care service time. Subjective Patient required PRN Ativan x1 early this morning for agitation, in addition to scheduled Phenobarbital. Patient continues to be oriented to self only this morning, appears to be responding to internal stimuli. Per nursing, patient stumbled when he stood up this morning but did not sustain any injuries or LOC. Patient denies fever/chills, chest pain, SOB, abdominal pain. Review of Systems Review of Systems: Pertinent positives and negatives mentioned in HPI. Physical Exam 2 Physical Exam: General: A&O to self only, appears to be responding to internal stimuli. NAD. HEENT: Atraumatic, normocephalic. Pulm: Decreased air entry bilaterally. Symmetrical chest rise. No increase work of breathing. No respiratory distress. Cardiac: RRR, -mrg. Radial pulses intact and symmetrical. Abdominal: soft, non-tender, mildly distended, BS x 4 Skin: warm, dry Results & Data Results & Data ([facility]) Vital Signs (Past 12 Hours) Vital Signs Temp Pulse Resp BP Pulse Ox 09/28/20 06:00 104 H 111/51 L 09/28/20 05:00 100 H 123/66 09/28/20 04:00 101 H 134/91 09/28/20 03:00 102 H 117/89 92 09/28/20 02:00 110 H 24 128/94 93 09/28/20 01:24 100 H 09/28/20 01:00 103 H 25 H 146/100 H 93 09/28/20 00:00 105 H 20 153/100 H 100 09/27/20 23:00 100 H 26 H 135/81 94 09/27/20 22:00 37.2 C 97 H 36 H 141/90 H 92 09/27/20 21:16 104 H 12 139/97 98 09/27/20 20:56 97 H 141/90 H Critical Care Time Total Critical Care Time: 40 Resident Activity Tracking Resident Involvement: Resident Care Provided Care Provided: Adult Hospital Medicine
--- NOTE | 2020-09-28 09:53 | Billing Data ---
Date of Service September 28, 2020 Coding Level of Care Code Critical Care 1st - mins
[2020-09-28] MEDS ORDERED: PHYTONADIONE 5 MG TAB PO STA (09:57)
--- NOTE | 2020-09-28 13:21 | Billing Data ---
Date of Service September 28, 2020 Coding Level of Care Code Critical Care 1st - mins
[2020-09-28 16:11] LABS: Cdiff Antigen Positive
[2020-09-28 16:12] LABS: Cdiff Toxin A+B Positive Cdiff Toxin (Negative)
[2020-09-28] MEDS: FIDAXOMICIN 200 MG TAB PO SCH (18:04)
[2020-09-28] MEDS: LACTOBACILLUS ACIDOPHILUS 1 GM PACK PO SCH (18:05)
[2020-09-29 04:10] LABS: Basophils # (auto) 0.04 K/uL (0-0.2); Basophils % (auto) 0.3 %; Eosinophils # (auto) 0.21 K/uL (0-0.5); Eosinophils % (auto) 1.5 %; Hematocrit (blood only) 39.3 % (42-52); Hemoglobin 13.7 g/dL (14.0-18.0); Immature Granulocytes # (auto) 0.05 K/uL (0.00-0.02); Immature Granulocytes % (auto) 0.4 %; Lymphocytes # (auto) 2.25 K/uL (1.2-3.4); Lymphocytes % (auto) 16.3 %; Mean Corpuscular Hemoglobin 35.9 pg (25-34); Mean Corpuscular Hgb Conc 34.9 g/dL (32-36); Mean Corpuscular Volume 102.9 fL (80-100); Mean Platelet Volume 9.9 fL (7.4-10.4); Monocytes # (auto) 1.12 K/uL (0.11-0.59); Monocytes % (auto) 8.1 %; Neutrophils % (auto) 73.4 %; Platelet Count 357 K/uL (130-400); RDW Coefficient of Variation 13.2 % (11.5-14.5); RDW Standard Deviation 50.2 fL (36.4-46.3); Red Blood Count 3.82 M/uL (4.7-6.1); White Blood Count 13.77 K/uL (4.8-10.8)
[2020-09-29 04:23] LABS: INR 1.2 (0.9-1.1); Prothrombin Time 12.1 Seconds (9.0-12.0)
[2020-09-29 04:26] LABS: Albumin Level 2.3 gm/dl (3.4-5.0); BUN Creatinine Ratio 6.9 (10-20); Calcium 7.8 mg/dl (8.5-10.1); Creatinine Clr Calc Pharmacy 156.9 ml/min; Est GFR (African American) 139.2; Est GFR (Non-African American) 120.1; Potassium 3.9 mmol/L (3.5-5.1)
[2020-09-29 04:29] LABS: Albumin Globulin Ratio 0.5 (0.9-2); Bilirubin,Total 1.5 mg/dl (0.2-1); Globulin 4.5 gm/dl (2.5-4.0); Phosphorus 3.3 mg/dl (2.5-4.9); Total Protein 6.8 gm/dl (6.4-8.2)
--- NOTE | 2020-09-29 05:53 | Electrocardiogram Report ---
Test Reason : Blood Pressure : / mmHG Vent. Rate : 094 BPM Atrial Rate : 094 BPM P-R Int : 116 ms QRS Dur : 078 ms QT Int : 416 ms P-R-T Axes : 030 -06 005 degrees QTc Int : 520 ms Normal sinus rhythm Minimal voltage criteria for LVH, may be normal variant Prolonged QT Abnormal ECG When compared with ECG of 19-SEP-2020 08:12, No significant change was found Confirmed by Juan Dudley ([id number]) on 09/29/2020 5:53:31 AM Referred By: REFERRED SELF Confirmed By:Juan Dudley
[2020-09-29] MEDS ORDERED: POTASSIUM CHLORIDE CRTAB 20 MEQ TABCR PO STA (06:55)
[2020-09-29] MEDS: MULTIVITAMIN CHEWABLE TAB PO SCH (07:46)
[2020-09-29] MEDS: LACTOBACILLUS ACIDOPHILUS 1 GM PACK PO SCH ×3 (07:46→16:55)
[2020-09-29] MEDS: cloNIDine HCL 0.1 MG TAB PO SCH ×2 (07:47→21:45)
[2020-09-29] MEDS: FOLIC ACID 1 MG TAB PO SCH (07:47)
[2020-09-29] MEDS: THIAMINE HCL 100 MG TAB PO SCH ×2 (07:48→22:23)
[2020-09-29] MEDS: ENOXAPARIN INJ 40 MG/0.4 ML SYR SQ SCH (07:48)
--- NOTE | 2020-09-29 07:58 | Critical Care Progress Note ---
Date of Service September 29, 2020 Assessment & Plan (1) Admitted to intensive care unit: Reason Critically Ill: 40-year-old male with PMHx significant for heavy alcohol use who was admitted for colonic obstruction and alcohol withdrawal who was initially admitted to the ICU for acute hypoxic respiratory failure due to possible aspiration vs alcohol withdrawal. He was extubated on 09/25 and downgraded to med/surg on 09/26 but was again transferred to the ICU on 09/27 due to increasing PRN Ativan requirements due to agitation/hallucinations, likely 2/2 persistent alcohol withdrawal/delirium tremens. ICU Day 3. Neuro - [facility]: POSITIVE - delirium tremens - hallucinations and disorientation improved today but still present - continue Phenobarbital taper: 42.8mg PO Q12H until 09/29 PM dose, followed by 32.4mg PO Q12H x3 doses - continue Clonidine for additional treatment of withdrawal symptoms - held Zyprexa given prolonged QTc 520ms - continue Thiamine/Folate - follow clinically for improvement Cardiac - Hemodynamically stable, TTE normal - EKG showing prolonged QTc 520ms, Zyprexa held as mentioned above Respiratory - previous acute hypoxic respiratory failure with patchy bilateral bibasilar infiltrates, likely due to aspiration - s/p IV ertapenem, completed on 09/25 - CXR on 09/27 showing stable appearance of mild bibasilar infiltrates/trace pleural effusions, patient tolerating room air well GI - obstruction vs ileus, resolving - moving bowels regularly, no abdominal pain or N/V - 4-6 loose stools in last 24 hours in context of recent abx, c-diff positive, continue treatment as mentioned below - strict I/Os RENAL/LYTES - renal function normal, no electrolyte imbalance - continue to replace lytes as needed - No concerns at this time ENDO - No h/o diabetes or thyroid disease - BSGs per unit protocol HEME - - Stable H&H - Persistently increased coags (PT 12.1, INR 1.2) despite Phytonadione yesterday - likely due to hepatic steatosis 2/2 alcohol abuse - monitor CBC and PT/INR daily ID - Completed 4 days of ertapenem for enterocolitis on 09/25 (was on Flag yl/Rocephin for 1 day prior) - 4-6 loose stools in last 24 hours without abdominal pain or fevers - C-diff toxin/gene positive - continue Fidaxomicin 200mg PO BID x10 days (today is day 2) - strict I/Os LINES/IV ACCESS PIV x2 intact. DVT PROPHYLAXIS - Lovenox 40mg SQ QAM, SCDs CODE STATUS: full code Dispo: The patient is medically stable to be transferred out of ICU. Thank you for allowing us to be part of this patient's care. Please refer to Dr. Castaneda's documentation for any further recommendations. (2) Colon obstruction: (3) Enterocolitis: Admission and Anticipated Discharge Date Admission Date: September 19, 2020 Supervising Physician Co-Signing Physician Notes Dr. Uribe was resident physician during care of patient. I separately evaluated patient for canas portions of the history and the exam. I was present during the critical portion of medical decision making, and I discussed the case with the resident. I generally agree with the findings and plan. Patient much more purposeful, on oral phenobarbital for 2 more days oriented to self redirectable. Stable for downgrade out of ICU with one-to-one sitter. I discussed the case with the hospitalist. Ordered antibiotics for C. difficile colitis. Subjective No acute events overnight. Per nursing, the patient has been less agitated and intermittently A+O to self, place and year; however he is still "grabbing at air". This morning patient was A+O to self and place only and denies chest pain or abdominal pain. Denies fever/chills, shortness of breath. Review of Systems Review of Systems: Pertinent positives and negatives mentioned in HPI. Physical Exam Physical Exam: General: A&O to self and place, appears to be responding to internal stimuli. NAD. HEENT: Atraumatic, normocephalic. Pulm: LCTAB. Symmetrical chest rise. No increase work of breathing. No respiratory distress. Cardiac: tachycardic rate, regular rhythm, -mrg. Radial pulses intact and symmetrical. Abdominal: soft, non-tender, non-distended, BS x 4 Skin: warm, dry Results & Data Results & Data ([facility]) Vital Signs (Past 12 Hours) Vital Signs Temp Pulse Resp BP Pulse Ox 09/29/20 06:09 95 09/29/20 06:01 104 H 26 H 91 09/29/20 06:00 105 H 28 H 116/77 92 09/29/20 05:00 108 H 27 H 91 09/29/20 04:01 105 H 29 H 94 09/29/20 04:00 105 H 25 H 127/86 93 09/29/20 03:38 36.8 C 09/29/20 03:36 109 H 27 H 131/84 93 09/29/20 02:01 102 H 30 H 94 09/29/20 02:00 101 H 33 H 128/90 93 09/29/20 00:11 102 H 09/29/20 00:00 100 H 28 H 142/93 H 93 09/28/20 23:54 37.0 C 09/28/20 23:01 102 H 29 H 92 09/28/20 23:00 104 H 29 H 131/85 92 09/28/20 22:01 109 H 29 H 93 09/28/20 22:00 104 H 26 H 129/93 93 09/28/20 21:01 103 H 26 H 91 09/28/20 21:00 100 H 25 H 140/90 92 09/28/20 20:01 104 H 27 H 92 09/28/20 20:00 105 H 28 H 129/87 93 Resident Activity Tracking Resident Involvement: Resident Care Provided Care Provided: Adult Hospital Medicine
[2020-09-29] MEDS: FIDAXOMICIN 200 MG TAB PO SCH ×2 (08:21→21:45)
--- NOTE | 2020-09-29 18:12 | Hospitalist Progress Note ---
Date of Service September 29, 2020 Assessment & Plan (1) C. difficile colitis: (2) Colonic obstruction: (3) Abdominal pain: Presented on admission with abdominal discomfort mostly due to constipation CT scan showed narrowing of the distal one third of the descending colon with mild upstream colonic dilation with air-fluid levels KUB showed minimal colonic fecal retention. There is gaseous distention of the small bowel and colon. The appearance favors an ileus. GI consulted Bisacodyl 10mg [place] given, may follow with tap water enema if no BM produced Case discussed with GI that recommended to avoid Lactulose because it can worsen the distension GI recommended relistor every other day Surgery consulted- continue conservative management Rocephin and IV Flagyl was discontinued, then started on Ertapenem that was discontinued after 4 days had a BM, but abdomen distended abdominal KUB repeated C. diff colitis Then pt developed loose stools - c.diff repeat test ordered and found positive Treatment started in ICU w/ Fidaxomicin 200mg PO BID x10 days (today is day 2), will continue Acute respiratory failure Possible related to aspiration pneumonia CXR showed multifocal airspace opacities consistent with a multifocal pneumonia. CTA chest showed no evidence of acute pulmonary embolism. Multifocal airspace opacities indicative of a multifocal pneumonia. Small left pleural effusion and trace right pleural effusion Intubated on mechanical ventilation Sputum cx grew normal yakelin IV Ertapenem discontinued More calm and followed commands S/P extubation on 09/25 Currently on RA saturated well Elevated liver function tests. Possible related to alcohol abuse AST 60, ALT 22 and ALT 236 Continue monitor Liver enzymes LFTs trending down Electrolytes imbalance K 3.2 K replaced Continue monitor Elevated WBC Elevated Lactate Possible related to sepsis (Elevated WBC and Tachycardia ) Procalcitonin wnl IV Rocephin and Flagyl discontinued then transition to Ertapemen Blood cx - no growth WBC trending up to 13K IV ertapenem discontinued after 4 days History of Alcohol abuse Now w/ DT Pt became very agitated Sedated on Mechanical Vent support He said that he drank once since rehab back in 06/2019 found bottle of Vodka in the house Pt lied to physician and staff about drinking alcohol Multiples times p was asked if he drank alcohol in the last few days to tell because if he goes to DT that can cause him to , but pt continued to deny Reviewed his meds to see if he was on any Benzo that he could have been withdrawal from that Precedex and propofol drip were discontinued Pt on phenobarbital per ICU Continue Folic acid and thiamine Will need inpatient alcohol rehab Agitation Became very agitated once sedation decreased Not sure if agitation is related to alcohol withdrawal vs Anxiety Pt remain intubated due to the agitation Precedex and propofol discontinued Worsening agitation and was sent back to the ICU Ativan prn, cont. Phenobarbital taper (~3 day taper duration) Clonidine/Zyprexa/PRN Ativan for additional treatment of withdrawal symptoms Pt now on phenobarbital per ICU Depression Anxiety Continue Doxepin Clonidine resumed Ativan PRN GERD Continue PPI. DVT px on SCDs Disposition Continue monitor in the PCU Admission and Anticipated Discharge Date Admission Date: September 19, 2020 Subjective Pt seen in follow up of alcohol withdrawal / DTs, colonic obstruction, enterocolitis C. diff positive - treatment started in ICU No BM today reported Patient is currently lying in bed, in no acute distress, somewhat drowsy, on phenobarbital. He has no complaints at this time, appears comfortable, able to answer questions appropriately Patient's updated at the bedside Review of Systems Review of Systems: All systems reviewed & are unremarkable except as noted in HPI & below Constitutional: no fever and no chills Respiratory: no cough and no dyspnea Cardiovascular: no chest pain and no palpitations Gastrointestinal: no abdominal pain, no nausea and no vomiting Physical Exam Physical Exam: General-drowsy but able to answer questions appropriately, laying in bed in no acute distress Head- atraumatic Eyes- PERRL, EOMI, ENT- s/p extubation, EOMI Neck- supple, no JVD Lungs- CTAB, No wheezing, rhonchi, crackles Heart- regular rhythm; no murmur Abdomen- normal bowel sounds, +mild abdominal distention, nontender to palpation Extremities- no calf tenderness, moves extremities spontaneously Neuro- drowsy but able to answer questions appropriately, speech fluent, no facial asymmetry, moves all 4 extremities Results & Data Results & Data ([facility]) Vital Signs (Past 12 Hours) Vital Signs Temp Pulse Pulse Resp BP BP Pulse Ox 09/29/20 16:07 36.8 C 100 H 18 109/64 91 09/29/20 14:51 104 H 09/29/20 13:17 36.9 C 114 H 16 124/84 94 03/18/21 10:32 108 H 25 H 114/77 93 09/29/20 10:00 112 H 28 H 93 09/29/20 08:01 108 H 25 H 97 09/29/20 08:00 37.4 C 105 H 108 H 25 H 133/91 117/65 97 09/29/20 07:15 105 H 21 112/65 93 Laboratory Results 09/29/20 09/29/20 09/29/20 Range/Units 03:53 03:53 03:53 WBC 13.77 H (4.8-10.8) K/uL RBC 3.82 L (4.7-6.1) M/uL Hgb 13.7 L (14.0-18.0) g/dL Hct 39.3 L (42-52) % MCV 102.9 H (80-100) fL MCH 35.9 H (25-34) pg MCHC 34.9 (32-36) g/dL RDW Std Deviation 50.2 H (36.4-46.3) fL RDW Coeff of [place] 13.2 (11.5-14.5) % Plt Count 357 (130-400) K/uL MPV 9.9 (7.4-10.4) fL Immature Gran % (Auto) 0.4 % Neut % (Auto) 73.4 % Lymph % (Auto) 16.3 % [place] % (Auto) 8.1 % Eos % (Auto) 1.5 % Baso % (Auto) 0.3 % Neut # (Auto) 10.10 H (1.4-6.5) K/uL Lymph # (Auto) 2.25 (1.2-3.4) K/uL [place] # (Auto) 1.12 H (0.11-0.59) K/uL Eos # (Auto) 0.21 (0-0.5) K/uL Baso # (Auto) 0.04 (0-0.2) K/uL Immature Gran # (Auto) 0.05 H (0.00-0.02) K/uL PT 12.1 H (9.0-12.0) Seconds INR 1.2 H (0.9-1.1) Sodium 140 (136-145) mmol/L Potassium 3.9 (3.5-5.1) mmol/L Chloride 110 H (98-107) mmol/L Carbon Dioxide 23 (21-32) mmol/L Anion Gap 7.0 (3-11) BUN 5 L (7-18) mg/dl Creatinine 0.66 (0.6-1.4) mg/dl Est Cr Clr Drug Dosing 156.9 ml/min Est GFR ( Amer) 139.2 Est GFR (Non-Af Amer) 120.1 BUN/Creatinine Ratio 6.9 L (10-20) Glucose 89 (70-99) mg/dl Calcium 7.8 L (8.5-10.1) mg/dl Phosphorus 3.3 (2.5-4.9) mg/dl Magnesium 2.0 (1.8-2.4) mg/dl Total Bilirubin 1.5 H (0.2-1) mg/dl AST 56 H (15-37) U/L ALT 26 (12-78) U/L Alkaline Phosphatase 231 H (45-117) U/L Total Protein 6.8 (6.4-8.2) gm/dl Albumin 2.3 L (3.4-5.0) gm/dl Globulin 4.5 H (2.5-4.0) gm/dl Albumin/Globulin Ratio 0.5 L (0.9-2) Medications Administered Current Inpatient Medications Acetaminophen (Acetaminophen 325 Mg Tab) 650 mg PO Q6H PRN PRN Reason: Fever Stop: 10/24/20 02:12 Last Admin: 09/25/20 21:13 Dose: 650 mg Documented by: Clonidine HCl (Clonidine Hcl 0.1 Mg Tab) 0.2 mg PO BID [facility] Stop: 10/27/20 08:59 Last Admin: 09/29/20 07:47 Dose: 0.2 mg Documented by: Enoxaparin Sodium (Enoxaparin Inj 40 Mg/0.4 Ml Syr) 40 mg SQ QAM [facility] Stop: 10/23/20 08:59 Last Admin: 09/29/20 07:48 Dose: 40 mg Documented by: Fidaxomicin (Fidaxomicin 200 Mg Tab) 200 mg PO BID [facility] Stop: 10/08/20 16:59 Last Admin: 09/29/20 08:21 Dose: 200 mg Documented by: Folic Acid (Folic Acid 1 Mg Tab) 1 mg PO QAM [facility] Stop: 10/22/20 08:59 Last Admin: 09/29/20 07:47 Dose: 1 mg Documented by: Lactobacillus Acidophilus (Lactobacillus Acidophilus 1 Gm Pack) 1 gm PO TIDM [facility] Stop: 10/28/20 16:59 Last Admin: 09/29/20 16:55 Dose: 1 gm Documented by: Multivitamins/Folic Acid/Vitamin C (Multivitamin Chewable Tab) 1 tab PO QAM [facility] Stop: 10/22/20 08:59 Last Admin: 09/29/20 07:46 Dose: 1 tab Documented by: Olanzapine (Olanzapine 5 Mg Tablet) 5 mg PO BID [facility] Stop: 10/24/20 11:59 Last Admin: 09/28/20 07:50 Dose: 5 mg Documented by: Phenobarbital (Phenobarbital 32.4 Mg Tab) 64.8 mg PO Q12H [facility] Stop: 09/29/20 21:01 Last Admin: 09/29/20 07:47 Dose: 64.8 mg Documented by: Phenobarbital (Phenobarbital 32.4 Mg Tab) 32.4 mg PO Q12H [facility] Stop: 10/01/20 09:01 Thiamine HCl (Thiamine Hcl 100 Mg Tab) 100 mg PO BID [facility] Stop: 10/26/20 20:59 Last Admin: 09/29/20 07:48 Dose: 100 mg Documented by: (1) Abdominal pain Abdominal location: lower abdomen, unspecified Qualified Code(s): R10.30 - Lower abdominal pain, unspecified
[2020-09-30 07:36] LABS: Hematocrit (blood only) 38.4 % (42-52); Hemoglobin 13.3 g/dL (14.0-18.0); Mean Corpuscular Hemoglobin 35.6 pg (25-34); Mean Corpuscular Hgb Conc 34.6 g/dL (32-36); Mean Corpuscular Volume 102.7 fL (80-100); Platelet Count 380 K/uL (130-400); RDW Coefficient of Variation 13.2 % (11.5-14.5); Red Blood Count 3.74 M/uL (4.7-6.1)
--- NOTE | 2020-09-30 07:50 | Hospitalist Progress Note ---
Date of Service September 30, 2020 Assessment & Plan (1) C. difficile colitis: (2) Colonic obstruction: (3) Abdominal pain: Presented on admission with abdominal discomfort mostly due to constipation CT scan showed narrowing of the distal one third of the descending colon with mild upstream colonic dilation with air-fluid levels KUB showed minimal colonic fecal retention. There is gaseous distention of the small bowel and colon. The appearance favors an ileus. GI consulted Bisacodyl 10mg SD given, may follow with tap water enema if no BM produced Case discussed with GI that recommended to avoid Lactulose because it can worsen the distension GI recommended relistor every other day Surgery consulted- continue conservative management Rocephin and IV Flagyl was discontinued, then started on Ertapenem that was discontinued after 4 days had a BM, but abdomen distended abdominal KUB repeated C. diff colitis Then pt developed loose stools - c.diff repeat test ordered and found positive Treatment started in ICU w/ Fidaxomicin 200mg PO BID x10 days (today is day 3), will continue Acute respiratory failure Possible related to aspiration pneumonia CXR showed multifocal airspace opacities consistent with a multifocal pneumonia. CTA chest showed no evidence of acute pulmonary embolism. Multifocal airspace opacities indicative of a multifocal pneumonia. Small left pleural effusion and trace right pleural effusion Intubated on mechanical ventilation Sputum cx grew normal yakelin IV Ertapenem discontinued More calm and followed commands S/P extubation on 09/25 Currently on RA saturated well Elevated liver function tests. Possible related to alcohol abuse AST 60, ALT 22 and Alk phos 236 Continue monitor Liver enzymes Current AST 71, ALT 32, alk phos 277 Will obtain US liver Electrolytes imbalance K 3.2 K replaced Continue monitor Elevated WBC Elevated Lactate Possible related to sepsis (Elevated WBC and Tachycardia ) Procalcitonin wnl IV Rocephin and Flagyl discontinued then transition to Ertapemen Blood cx - no growth WBC trending up to 13K now 15K (09/29) IV ertapenem discontinued after 4 days History of Alcohol abuse Now w/ DT Pt became very agitated Sedated on Mechanical Vent support He said that he drank once since rehab back in 06/2019 found bottle of Vodka in the house Pt lied to physician and staff about drinking alcohol Multiples times p was asked if he drank alcohol in the last few days to tell because if he goes to DT that can cause him to , but pt continued to deny Reviewed his meds to see if he was on any Benzo that he could have been withdrawal from that Precedex and propofol drip were discontinued Pt on phenobarbital per ICU Continue Folic acid and thiamine Will need inpatient alcohol rehab Agitation Became very agitated once sedation decreased Not sure if agitation is related to alcohol withdrawal vs Anxiety Pt remain intubated due to the agitation Precedex and propofol discontinued Worsening agitation and was sent back to the ICU Ativan prn, cont. Phenobarbital taper (~3 day taper duration) Clonidine/Zyprexa/PRN Ativan for additional treatment of withdrawal symptoms Pt now on phenobarbital per ICU Depression Anxiety Continue Doxepin Clonidine resumed Ativan PRN GERD Continue PPI. DVT px on SCDs Disposition Continue monitor in the PCU Admission and Anticipated Discharge Date Admission Date: September 19, 2020 Subjective Pt seen in follow up of alcohol withdrawal / DTs, colonic obstruction, enterocolitis C. diff positive - treatment started in ICU Had several formed BMs Patient is currently lying in bed, in no acute distress, somewhat drowsy, on phenobarbital. He has no complaints at this time, appears comfortable, able to answer questions appropriately Patient's updated at the bedside yesterday Review of Systems Review of Systems: All systems reviewed & are unremarkable except as noted in HPI & below Constitutional: no fever and no chills Respiratory: no cough and no dyspnea Cardiovascular: no chest pain and no palpitations Gastrointestinal: no abdominal pain, no nausea and no vomiting Physical Exam Physical Exam: General-drowsy but able to answer questions appropriately, laying in bed in no acute distress Head- atraumatic Eyes- PERRL, EOMI, ENT- s/p extubation, EOMI Neck- supple, no JVD Lungs- CTAB, No wheezing, rhonchi, crackles Heart- regular rhythm; no murmur Abdomen- normal bowel sounds, +mild abdominal distention, nontender to palpation Extremities- no calf tenderness, moves extremities spontaneously Neuro- drowsy but able to answer questions appropriately, speech fluent, no facial asymmetry, moves all 4 extremities Results & Data Results & Data ([facility]) Vital Signs (Past 12 Hours) Vital Signs Temp Pulse Pulse Resp BP BP Pulse Ox 09/30/20 07:27 103 H 09/30/20 06:47 37.5 C 111 H 16 117/79 94 09/30/20 03:49 36.9 C 101 H 16 83/45 L 92 09/29/20 23:55 37.0 C 98 H 16 132/79 98 Laboratory Results 09/30/20 09/30/20 Range/Units 07:13 07:13 WBC 15.90 H (4.8-10.8) K/uL RBC 3.74 L (4.7-6.1) M/uL Hgb 13.3 L (14.0-18.0) g/dL Hct 38.4 L (42-52) % MCV 102.7 H (80-100) fL MCH 35.6 H (25-34) pg MCHC 34.6 (32-36) g/dL RDW Std Deviation 50.0 H (36.4-46.3) fL RDW Coeff of [place] 13.2 (11.5-14.5) % Plt Count 380 (130-400) K/uL MPV 10.0 (7.4-10.4) fL Sodium 137 (136-145) mmol/L Potassium 3.5 (3.5-5.1) mmol/L Chloride 106 (98-107) mmol/L Carbon Dioxide 22 (21-32) mmol/L Anion Gap 9.0 (3-11) BUN 5 L (7-18) mg/dl Creatinine 0.77 (0.6-1.4) mg/dl Est Cr Clr Drug Dosing 134.5 ml/min Est GFR ( Amer) 130.6 Est GFR (Non-Af Amer) 112.7 BUN/Creatinine Ratio 6.7 L (10-20) Glucose 88 (70-99) mg/dl Calcium 8.3 L (8.5-10.1) mg/dl Phosphorus 3.4 (2.5-4.9) mg/dl Magnesium 2.1 (1.8-2.4) mg/dl Total Bilirubin 1.7 H (0.2-1) mg/dl AST 71 H (15-37) U/L ALT 32 (12-78) U/L Alkaline Phosphatase 276 H (45-117) U/L Total Protein 6.7 (6.4-8.2) gm/dl Albumin 2.3 L (3.4-5.0) gm/dl Globulin 4.4 H (2.5-4.0) gm/dl Albumin/Globulin Ratio 0.5 L (0.9-2) Medications Administered Current Inpatient Medications Acetaminophen (Acetaminophen 325 Mg Tab) 650 mg PO Q6H PRN PRN Reason: Fever Stop: 10/24/20 02:12 Last Admin: 09/25/20 21:13 Dose: 650 mg Documented by: Clonidine HCl (Clonidine Hcl 0.1 Mg Tab) 0.2 mg PO BID [facility] Stop: 10/27/20 08:59 Last Admin: 09/29/20 21:45 Dose: 0.2 mg Documented by: Enoxaparin Sodium (Enoxaparin Inj 40 Mg/0.4 Ml Syr) 40 mg SQ QAM [facility] Stop: 10/23/20 08:59 Last Admin: 09/29/20 07:48 Dose: 40 mg Documented by: Fidaxomicin (Fidaxomicin 200 Mg Tab) 200 mg PO BID [facility] Stop: 10/08/20 16:59 Last Admin: 09/29/20 21:45 Dose: 200 mg Documented by: Folic Acid (Folic Acid 1 Mg Tab) 1 mg PO QAM [facility] Stop: 10/22/20 08:59 Last Admin: 09/29/20 07:47 Dose: 1 mg Documented by: Lactobacillus Acidophilus (Lactobacillus Acidophilus 1 Gm Pack) 1 gm PO TIDM [facility] Stop: 10/28/20 16:59 Last Admin: 09/29/20 16:55 Dose: 1 gm Documented by: Multivitamins/Folic Acid/Vitamin C (Multivitamin Chewable Tab) 1 tab PO QAM [facility] Stop: 10/22/20 08:59 Last Admin: 09/29/20 07:46 Dose: 1 tab Documented by: Olanzapine (Olanzapine 5 Mg Tablet) 5 mg PO BID [facility] Stop: 10/24/20 11:59 Last Admin: 09/28/20 07:50 Dose: 5 mg Documented by: Phenobarbital (Phenobarbital 32.4 Mg Tab) 32.4 mg PO Q12H [facility] Stop: 10/01/20 09:01 Thiamine HCl (Thiamine Hcl 100 Mg Tab) 100 mg PO BID [facility] Stop: 10/26/20 20:59 Last Admin: 09/29/20 22:23 Dose: 100 mg Documented by: (1) Abdominal pain Abdominal location: lower abdomen, unspecified Qualified Code(s): R10.30 - Lower abdominal pain, unspecified
[2020-09-30] MEDS: LACTOBACILLUS ACIDOPHILUS 1 GM PACK PO SCH ×3 (08:10→16:48)
[2020-09-30] MEDS: THIAMINE HCL 100 MG TAB PO SCH ×2 (08:11→21:34)
[2020-09-30] MEDS: ENOXAPARIN INJ 40 MG/0.4 ML SYR SQ SCH (08:11)
[2020-09-30] MEDS: MULTIVITAMIN CHEWABLE TAB PO SCH (08:12)
[2020-09-30] MEDS: FOLIC ACID 1 MG TAB PO SCH (08:12)
[2020-09-30 08:17] LABS: Albumin Level 2.3 gm/dl (3.4-5.0); BUN Creatinine Ratio 6.7 (10-20); Calcium 8.3 mg/dl (8.5-10.1); Creatinine Clr Calc Pharmacy 134.5 ml/min; Est GFR (African American) 130.6; Est GFR (Non-African American) 112.7; Magnesium 2.1 mg/dl (1.8-2.4); Potassium 3.5 mmol/L (3.5-5.1)
[2020-09-30 08:19] LABS: Albumin Globulin Ratio 0.5 (0.9-2); Bilirubin,Total 1.7 mg/dl (0.2-1); Globulin 4.4 gm/dl (2.5-4.0); Phosphorus 3.4 mg/dl (2.5-4.9); Total Protein 6.7 gm/dl (6.4-8.2)
[2020-09-30] MEDS: cloNIDine HCL 0.1 MG TAB PO SCH ×2 (08:25→21:00)
[2020-09-30] MEDS: FIDAXOMICIN 200 MG TAB PO SCH ×2 (08:25→21:34)
--- NOTE | 2020-09-30 14:28 | Ultrasound Report ---
ABDOMINAL ULTRASOUND, RIGHT UPPER QUADRANT HISTORY: elevated LFTs. COMPARISON: None. FINDINGS: Pancreas: Obscured by overlying bowel gas. Liver: The liver is echogenic consistent with fatty change. 21 cm in length. Trace perihepatic ascite s. Gallbladder: No gallbladder wall thickening. No gallstones. There are 2 gallbladder polyps measuring up to 2 mm. CBD: 6 mm. Right kidney: No hydronephrosis. IMPRESSION: 1. Small gallbladder polyps. No gallstones. 2. Hepatomegaly demonstrating fatty change. 3. Trace perihepatic ascites. ACT 112: Negative or not required by law. Electronically signed by: Kade Vega M.D. 09/30/2020 2:26 PM
[2020-10-01 06:40] LABS: Hematocrit (blood only) 37.7 % (42-52); Hemoglobin 13.1 g/dL (14.0-18.0); Mean Corpuscular Hemoglobin 36.3 pg (25-34); Mean Corpuscular Hgb Conc 34.7 g/dL (32-36); Mean Corpuscular Volume 104.4 fL (80-100); Mean Platelet Volume 10.2 fL (7.4-10.4); Platelet Count 382 K/uL (130-400); RDW Standard Deviation 49.3 fL (36.4-46.3); Red Blood Count 3.61 M/uL (4.7-6.1); White Blood Count 15.22 K/uL (4.8-10.8)
[2020-10-01 07:04] LABS: Albumin Level 2.3 gm/dl (3.4-5.0); BUN Creatinine Ratio 7.3 (10-20); Calcium 8.3 mg/dl (8.5-10.1); Creatinine Clr Calc Pharmacy 126.3 ml/min; Est GFR (African American) 127.3; Est GFR (Non-African American) 109.8; Magnesium 2.1 mg/dl (1.8-2.4); Potassium 3.5 mmol/L (3.5-5.1)
[2020-10-01 07:07] LABS: Albumin Globulin Ratio 0.5 (0.9-2); Bilirubin,Total 1.4 mg/dl (0.2-1); Globulin 4.6 gm/dl (2.5-4.0); Phosphorus 2.9 mg/dl (2.5-4.9); Total Protein 6.9 gm/dl (6.4-8.2)
--- NOTE | 2020-10-01 07:15 | Hospitalist Progress Note ---
Date of Service October 01, 2020 Assessment & Plan (1) C. difficile colitis: (2) Colonic obstruction: (3) Abdominal pain: Presented on admission with abdominal discomfort mostly due to constipation CT scan showed narrowing of the distal one third of the descending colon with mild upstream colonic dilation with air-fluid levels KUB showed minimal colonic fecal retention. There is gaseous distention of the small bowel and colon. The appearance favors an ileus. GI consulted Bisacodyl 10mg [place] given, may follow with tap water enema if no BM produced Case discussed with GI that recommended to avoid Lactulose because it can worsen the distension GI recommended relistor every other day Surgery consulted- continue conservative management Rocephin and IV Flagyl was discontinued, then started on Ertapenem that was discontinued after 4 days had a BM, but abdomen distended abdominal KUB repeated Abdominal pain now resolved, patient is having regular formed stools C. diff colitis Then pt developed loose stools - c.diff repeat test ordered and found positive Treatment started in ICU w/ Fidaxomicin 200mg PO BID x10 days (today is day 4), will continue Patient is having regular formed stools, no abdominal pain Leukocytosis WBC 15K -Likely secondary to C. difficile colitis -Recommend to check CBC as outpatient Acute respiratory failure Possible related to aspiration pneumonia CXR showed multifocal airspace opacities consistent with a multifocal pneumonia. CTA chest showed no evidence of acute pulmonary embolism. Multifocal airspace opacities indicative of a multifocal pneumonia. Small left pleural effusion and trace right pleural effusion Intubated on mechanical ventilation Sputum cx grew normal yakelin IV Ertapenem discontinued More calm and followed commands S/P extubation on 09/25 Currently on RA saturating well Elevated liver function tests. Possible related to alcohol abuse Continue monitor Liver enzymes Current AST 70, ALT 33, alk phos 231 - stable Obtained US liver - Small gallbladder polyps. No gallstones. Hepatomegaly demonstrating fatty change. Trace perihepatic ascites. Recommend to check LFTs as outpatient Electrolytes imbalance K 3.2 K replaced Continue monitor Elevated WBC Elevated Lactate Possible related to sepsis (Elevated WBC and Tachycardia ) Procalcitonin wnl IV Rocephin and Flagyl discontinued then transition to Ertapemen Blood cx - no growth WBC trending up to 13K now 15K (09/29) IV ertapenem discontinued after 4 days Currently clinically patient looks well, and is feeling well, leukocytosis likely secondary to C. difficile colitis, continue treatment as above History of Alcohol abuse Now w/ DT Pt became very agitated Sedated on Mechanical Vent support He said that he drank once since rehab back in 06/2019 found bottle of Vodka in the house Pt lied to physician and staff about drinking alcohol Multiples times pt was asked if he drank alcohol in the last few days to tell because if he goes to DT that can cause him to , but pt continued to deny Reviewed his meds to see if he was on any Benzo that he could have been withdrawal from that Precedex and propofol drip were discontinued Pt on phenobarbital per ICU Continue Folic acid and thiamine Patient now clinically improved, recommend continue folic acid and thiamine on discharge, he is in contact with his counselor, patient's updated and aware about the condition, we will also arrange close follow-up with PCP Agitation Became very agitated once sedation decreased Not sure if agitation is related to alcohol withdrawal vs Anxiety Pt remained intubated due to the agitation Precedex and propofol discontinued Worsening agitation and was sent back to the ICU Ativan prn, cont. Phenobarbital taper (~3 day taper duration) Clonidine/Zyprexa/PRN Ativan for additional treatment of withdrawal symptoms Pt then on phenobarbital per ICU Now resolved Depression Anxiety Clonidine resumed Ativan PRN while inpt GERD Continue PPI. DVT px on SCDs Disposition Plan to DC home Admission and Anticipated Discharge Date Admission Date: September 19, 2020 Subjective Pt seen in follow up of alcohol withdrawal / DTs, colonic obstruction, enterocolitis C. diff positive - treatment started Had several formed BMs Patient is currently lying in bed, in no acute distress He has no complaints at this time, appears comfortable, able to answer questions appropriately Patient's updated over the phone Review of Systems Review of Systems: All systems reviewed & are unremarkable except as noted in HPI & below Constitutional: no fever and no chills Respiratory: no cough and no dyspnea Cardiovascular: no chest pain and no palpitations Gastrointestinal: no abdominal pain, no nausea and no vomiting Physical Exam Physical Exam: General-alert and oriented and able to answer questions appropriately, laying in bed in no acute distress Head- atraumatic Eyes- PERRL, EOMI, ENT- s/p extubation, EOMI Neck- supple, no JVD Lungs- CTAB, No wheezing, rhonchi, crackles Heart- regular rhythm; no murmur Abdomen- normal bowel sounds, +mild abdominal distention, nontender to palpation Extremities- no calf tenderness, moves extremities spontaneously Neuro-alert and oriented and able to answer questions appropriately, speech fluent, no facial asymmetry, moves all 4 extremities Results & Data Results & Data ([facility]) Vital Signs (Past 12 Hours) Vital Signs Temp Pulse Pulse Resp BP Pulse Ox 10/01/20 07:00 95 H 10/01/20 03:33 37.1 C 88 18 107/61 93 09/30/20 23:04 37.6 C H 100 H 21 140/76 91 09/30/20 19:34 37.9 C H 102 H 18 126/74 92 Laboratory Results 10/01/20 10/01/20 09/30/20 Range/Units 06:10 06:10 07:13 WBC 15.22 H (4.8-10.8) K/uL RBC 3.61 L (4.7-6.1) M/uL Hgb 13.1 L (14.0-18.0) g/dL Hct 37.7 L (42-52) % MCV 104.4 H (80-100) fL MCH 36.3 H (25-34) pg MCHC 34.7 (32-36) g/dL RDW Std Deviation 49.3 H (36.4-46.3) fL RDW Coeff of [place] 13.0 (11.5-14.5) % Plt Count 382 (130-400) K/uL MPV 10.2 (7.4-10.4) fL Sodium 138 137 (136-145) mmol/L Potassium 3.5 3.5 (3.5-5.1) mmol/L Chloride 107 106 (98-107) mmol/L Carbon Dioxide 24 22 (21-32) mmol/L Anion Gap 7.0 9.0 (3-11) BUN 6 L 5 L (7-18) mg/dl Creatinine 0.82 0.77 (0.6-1.4) mg/dl Est Cr Clr Drug Dosing 126.3 134.5 ml/min Est GFR ( Amer) 127.3 130.6 Est GFR (Non-Af Amer) 109.8 112.7 BUN/Creatinine Ratio 7.3 L 6.7 L (10-20) Glucose 94 88 (70-99) mg/dl Calcium 8.3 L 8.3 L (8.5-10.1) mg/dl Phosphorus 2.9 3.4 (2.5-4.9) mg/dl Magnesium 2.1 2.1 (1.8-2.4) mg/dl Total Bilirubin 1.4 H 1.7 H (0.2-1) mg/dl AST 70 H 71 H (15-37) U/L ALT 33 32 (12-78) U/L Alkaline Phosphatase 231 H 276 H (45-117) U/L Total Protein 6.9 6.7 (6.4-8.2) gm/dl Albumin 2.3 L 2.3 L (3.4-5.0) gm/dl Globulin 4.6 H 4.4 H (2.5-4.0) gm/dl Albumin/Globulin Ratio 0.5 L 0.5 L (0.9-2) 09/30/20 Range/Units 07:13 WBC 15.90 H (4.8-10.8) K/uL RBC 3.74 L (4.7-6.1) M/uL Hgb 13.3 L (14.0-18.0) g/dL Hct 38.4 L (42-52) % MCV 102.7 H (80-100) fL MCH 35.6 H (25-34) pg MCHC 34.6 (32-36) g/dL RDW Std Deviation 50.0 H (36.4-46.3) fL RDW Coeff of [place] 13.2 (11.5-14.5) % Plt Count 380 (130-400) K/uL MPV 10.0 (7.4-10.4) fL Sodium (136-145) mmol/L Potassium (3.5-5.1) mmol/L Chloride (98-107) mmol/L Carbon Dioxide (21-32) mmol/L Anion Gap (3-11) BUN (7-18) mg/dl Creatinine (0.6-1.4) mg/dl Est Cr Clr Drug Dosing ml/min Est GFR ( Amer) Est GFR (Non-Af Amer) BUN/Creatinine Ratio (10-20) Glucose (70-99) mg/dl Calcium (8.5-10.1) mg/dl Phosphorus (2.5-4.9) mg/dl Magnesium (1.8-2.4) mg/dl Total Bilirubin (0.2-1) mg/dl AST (15-37) U/L ALT (12-78) U/L Alkaline Phosphatase (45-117) U/L Total Protein (6.4-8.2) gm/dl Albumin (3.4-5.0) gm/dl Globulin (2.5-4.0) gm/dl Albumin/Globulin Ratio (0.9-2) Medications Administered Current Inpatient Medications Acetaminophen (Acetaminophen 325 Mg Tab) 650 mg PO Q6H PRN PRN Reason: Fever Stop: 10/24/20 02:12 Last Admin: 09/25/20 21:13 Dose: 650 mg Documented by: Clonidine HCl (Clonidine Hcl 0.1 Mg Tab) 0.2 mg PO BID [facility] Stop: 10/27/20 08:59 Last Admin: 09/30/20 21:00 Dose: 0.2 mg Documented by: Enoxaparin Sodium (Enoxaparin Inj 40 Mg/0.4 Ml Syr) 40 mg SQ QAM [facility] Stop: 10/23/20 08:59 Last Admin: 09/30/20 08:11 Dose: 40 mg Documented by: Fidaxomicin (Fidaxomicin 200 Mg Tab) 200 mg PO BID [facility] Stop: 10/08/20 16:59 Last Admin: 09/30/20 21:34 Dose: 200 mg Documented by: Folic Acid (Folic Acid 1 Mg Tab) 1 mg PO QAM [facility] Stop: 10/22/20 08:59 Last Admin: 09/30/20 08:12 Dose: 1 mg Documented by: Lactobacillus Acidophilus (Lactobacillus Acidophilus 1 Gm Pack) 1 gm PO TIDM [facility] Stop: 10/28/20 16:59 Last Admin: 09/30/20 16:48 Dose: 1 gm Documented by: Multivitamins/Folic Acid/Vitamin C (Multivitamin Chewable Tab) 1 tab PO QAM [facility] Stop: 10/22/20 08:59 Last Admin: 09/30/20 08:12 Dose: 1 tab Documented by: Olanzapine (Olanzapine 5 Mg Tablet) 5 mg PO BID [facility] Stop: 10/24/20 11:59 Last Admin: 09/28/20 07:50 Dose: 5 mg Documented by: Phenobarbital (Phenobarbital 32.4 Mg Tab) 32.4 mg PO Q12H [facility] Stop: 10/01/20 09:01 Last Admin: 09/30/20 21:34 Dose: 32.4 mg Documented by: Thiamine HCl (Thiamine Hcl 100 Mg Tab) 100 mg PO BID [facility] Stop: 10/26/20 20:59 Last Admin: 09/30/20 21:34 Dose: 100 mg Documented by: (1) Abdominal pain Abdominal location: lower abdomen, unspecified Qualified Code(s): R10.30 - Lower abdominal pain, unspecified
[2020-10-01] MEDS ORDERED: POTASSIUM CHLORIDE CRTAB 20 MEQ TABCR PO STA ×2 (07:21→09:44)
[2020-10-01] MEDS: LACTOBACILLUS ACIDOPHILUS 1 GM PACK PO SCH (09:18)
[2020-10-01] MEDS: ENOXAPARIN INJ 40 MG/0.4 ML SYR SQ SCH (09:20)
[2020-10-01] MEDS: MULTIVITAMIN CHEWABLE TAB PO SCH (09:20)
[2020-10-01] MEDS: THIAMINE HCL 100 MG TAB PO SCH (09:20)
[2020-10-01] MEDS: FOLIC ACID 1 MG TAB PO SCH (09:20)
[2020-10-01] MEDS: cloNIDine HCL 0.1 MG TAB PO SCH (09:20)
[2020-10-01] MEDS: FIDAXOMICIN 200 MG TAB PO SCH (09:20)
--- NOTE | 2020-10-01 12:20 | Discharge Summary ---
Date of Service October 01, 2020 Admission HPI Per Admitting Provider A 40-year-old male with past medical history significant for GERD, backache, migraine, anxiety, depression, history of alcohol abuse who presents with abdominal pain and constipation. The patient says since last 5 days, he did not move his bowels and today he developed severe abdominal pain in the lower abdomen, which prompted him to come to the ER. Before that he says he was moving his bowels every day. Denies any blood in the stools. He was nauseous. His appetite was okay, but it has become slightly reduced since the last couple of days. Denies any fever or chills, no upper abdominal pain. Denies any chest pain, no shortness of breath, no cough. Had a headache a few days back, currently no headache, no blurred vision, no earache, no runny nose, no sore throat, no dysphagia, no shortness of breath, no chest pain. The patient states he was alcoholic before and he went to rehab in 06/2019. Since then he drank only one day. He is supposed to take naltrexone as needed, but he says he is taking it every day. He says it can cause liver issues, but he says he is taking it every day and he is also on clonidine and doxepin and [id number] Nexium currently. Admission Exam Per Admitting Provider GENERAL: The patient is of moderate build, not in acute distress. VITAL SIGNS: Temperature 36.5, pulse 101, respiratory rate 22, blood pressure 131/83, oxygen 94% on room air. HEENT: Pupils equal, round, reactive to light. Oral mucosa dry. NECK: No JVD, no neck masses seen. CARDIOVASCULAR: S1, S2 heard, regular rate and rhythm, no murmur, no gallop. RESPIRATORY SYSTEM: Normal AP diameter. No accessory muscle use. No wheezing, no crackles. ABDOMEN: Somewhat tense. Bowel sounds sluggish. No guarding, no rigidity. Mild lower abdominal tenderness. CENTRAL NERVOUS SYSTEM: Cranial nerves II-XII grossly intact. Nonfocal. EXTREMITIES: No edema, no erythema. Principal Diagnosis Abdomen pain, constipation, concern for colonic obstruction, enterocolitis Alcohol withdrawal/DTs, respiratory failure C. difficile colitis Discharge Exam General-alert and oriented and able to answer questions appropriately, laying in bed in no acute distress Head- atraumatic Eyes- PERRL, EOMI, ENT- s/p extubation, EOMI Neck- supple, no JVD Lungs- CTAB, No wheezing, rhonchi, crackles Heart- regular rhythm; no murmur Abdomen- normal bowel sounds, +mild abdominal distention, nontender to palpation Extremities- no calf tenderness, moves extremities spontaneously Neuro-alert and oriented and able to answer questions appropriately, speech fluent, no facial asymmetry, moves all 4 extremities Discharge Data Allergies Allergy/AdvReac Type Severity Reaction Status Date / Time Penicillins Allergy Intermediate rash/sob Verified 09/19/20 01:54 Consultations 09/19/20 05:01 ED Decision to Admit Stat 09/19/20 06:20 Consult Case Management - Discharge Planning Routine 09/19/20 07:26 Consult General Surgery Routine 09/19/20 08:00 Consult Gastroenterology Routine 09/22/20 02:27 Consult Case Management - Discharge Planning Routine Consult Independent Insurance Adjuster Routine 09/28/20 17:54 Burn CD for patient Stat Ordered Studies 09/19/20 01:57 CT abd pelvis IV con only Urgent IMPRESSION: 1. Narrowing of the distal one third of the descending colon with mild upstream colonic dilation with air-fluid levels. Correlation should be made with colonoscopy to exclude an obstructing mucosal lesion. Peristalsis with colonic ileus/diarrheal illness could appear similarly. 2. Scattered small bowel air-fluid levels without small bowel obstruction may reflect ileus versus enteritis. 3. Noninflamed appendix. 4. No pneumoperitoneum. 5. Hepatic steatosis. 6. Mild hepatomegaly. 09/21/20 22:11 CT head/brain wo con Urgent IMPRESSION: No acute intracranial findings 09/22/20 04:24 CT abd pelvis IV con only Urgent IMPRESSION: 1. Streak and motion degraded examination. 2. Trace pleural effusions with bibasilar consolidation. 3. Findings suggest a nonspecific enterocolitis. Clinical correlation will be required. 3. There is no evidence of high-grade bowel obstruction. Mild ileus is not excluded. 4. Hepatomegaly and severe hepatic steatosis. 5. Small volume of abdominopelvic ascites. 6. Additional findings as above. CT angio chest PE protocol Urgent IMPRESSION: 1. No evidence of acute pulmonary embolism 2. Multifocal airspace opacities indicative of a multifocal pneumonia 3. Small left pleural effusion and trace right pleural effusion 4. Hepatic steatosis CT soft tissue neck w con Urgent IMPRESSION: 1. Indwelling endotracheal tube 2. Multifocal pulmonary airspace opacities consistent with a multifocal pneumonia 3. No pathologic neck masses identified. No evidence of pathologic adenopathy 09/30/20 14:00 US liver Routine IMPRESSION: 1. Small gallbladder polyps. No gallstones. 2. Hepatomegaly demonstrating fatty change. 3. Trace perihepatic ascites. Hospital Course (1) C. difficile colitis: (2) Colonic obstruction: (3) Abdominal pain: Presented on admission with abdominal discomfort mostly due to constipation CT scan showed narrowing of the distal one third of the descending colon with mild upstream colonic dilation with air-fluid levels KUB showed minimal colonic fecal retention. There is gaseous distention of the small bowel and colon. The appearance favors an ileus. GI consulted Bisacodyl 10mg MS given, may follow with tap water enema if no BM produced Case discussed with GI that recommended to avoid Lactulose because it can worsen the distension GI recommended relistor every other day Surgery consulted- continue conservative management Rocephin and IV Flagyl was discontinued, then started on Ertapenem that was discontinued after 4 days had a BM, but abdomen distended abdominal KUB repeated Abdominal pain now resolved, patient is having regular formed stools C. diff colitis Then pt developed loose stools - c.diff repeat test ordered and found positive Treatment started in ICU w/ Fidaxomicin 200mg PO BID x10 days (today is day 4), will continue. Update: Received a call from patient's pharmacy, that Fidaxomicin is not covered with his insurance, switch to p.o. vancomycin on discharge Patient is having regular formed stools, no abdominal pain Leukocytosis WBC 15K -Likely secondary to C. difficile colitis, continue treatment as above -Recommend to check CBC as outpatient Acute respiratory failure Possible related to aspiration pneumonia CXR showed multifocal airspace opacities consistent with a multifocal pneumonia. CTA chest showed no evidence of acute pulmonary embolism. Multifocal airspace opacities indicative of a multifocal pneumonia. Small left pleural effusion and trace right pleural effusion Intubated on mechanical ventilation Sputum cx grew normal yakelin IV Ertapenem discontinued More calm and followed commands S/P extubation on 09/25 Currently on RA saturating well Elevated liver function tests. Possible related to alcohol abuse Continue monitor Liver enzymes Current AST 70, ALT 33, alk phos 231 - stable Obtained US liver - Small gallbladder polyps. No gallstones. Hepatomegaly demonstrating fatty change. Trace perihepatic ascites. Recommend to check LFTs as outpatient Electrolytes imbalance K 3.2 K replaced Continue monitor Recommend to check as outpt Elevated WBC Elevated Lactate Possible related to sepsis (Elevated WBC and Tachycardia ) Procalcitonin wnl IV Rocephin and Flagyl discontinued then transition to Ertapemen Blood cx - no growth WBC trending up to 13K now 15K (09/29) IV ertapenem discontinued after 4 days Currently clinically patient looks well, and is feeling well, leukocytosis likely secondary to C. difficile colitis, continue treatment as above History of Alcohol abuse Now w/ DT Pt became very agitated Sedated on Mechanical Vent support He said that he drank once since rehab back in 06/2019 found bottle of Vodka in the house Pt lied to physician and staff about drinking alcohol Multiples times pt was asked if he drank alcohol in the last few days to tell because if he goes to DT that can cause him to , but pt continued to deny Reviewed his meds to see if he was on any Benzo that he could have been withdrawal from that Precedex and propofol drip were discontinued Pt on phenobarbital per ICU Continue Folic acid and thiamine Patient now clinically improved, recommend continue folic acid and thiamine on discharge, he is in contact with his counselor, patient's updated and aware about the condition, we will also arrange close follow-up with PCP Agitation Became very agitated once sedation decreased Not sure if agitation is related to alcohol withdrawal vs Anxiety Pt remained intubated due to the agitation Precedex and propofol discontinued Worsening agitation and was sent back to the ICU Ativan prn, cont. Phenobarbital taper (~3 day taper duration) Clonidine/Zyprexa/PRN Ativan for additional treatment of withdrawal symptoms Pt then on phenobarbital per ICU Now resolved Depression Anxiety Clonidine resumed Ativan PRN while inpt GERD Continue PPI. Disposition Plan to DC home Total Time Total Time Spent Total Time Spent (In Minutes): 40 Total Time Includes: Examination of the Patient, Discharge Planning, Medication Reconciliation and Communication With Other Providers Discharge Plan Discharge Items Patient Disposition: Home - Self-Care Reason For Visit: ABDOMINAL PAIN, CONSTIPATION Discharge Diagnosis: Abdomen pain, constipation, concern for colonic obstruction, enterocolitis Alcohol withdrawal/DTs, respiratory failure C. difficile colitis Activity: Per Instructions section Non-emergency contact: Primary Care Provider Call non-emergency contact if: you have any medication questions and your symptoms worsen Follow-up/Referrals: Lavelle Carrillo, [Primary Care Provider] - Diet: Regular Addtl Attending Provider Instructions: Follow-up with your primary care doctor, within 1 week, the appointment will be scheduled for you and you will be contacted. It is crucial that you completely abstain from alcohol. Finish the treatment for C. difficile colitis, take fidaxomicin as prescribed. Recommend taking thiamine and folic acid daily. Consider taking probiotics for next 2 weeks. Continue taking clonidine as before, however do not take doxepin and naltrexone until you speak to your primary care doctor. Recommend using incentive spirometer at home for next week. Pending Studies at Discharge: No Stand-Alone Forms: My [facility], Smoking Cessation Medications and DC Order Prescriptions: New Dificid 200 mg Tablet 200 mg PO BID 7 Days Qty: 14 RF: 0 folic acid 1 mg Tablet 1 mg PO QAM Qty: 30 RF: 0 thiamine HCl (vitamin B1) [Vitamin B-1] 100 mg Tablet 100 mg PO BID Qty: 60 RF: 0 Continued clonidine HCl 0.2 mg tablet 0.2 mg PO BID RF: 0 Discontinued doxepin 100 mg capsule 100 mg PO HS RF: 0 naltrexone 50 mg tablet 50 mg PO UD RF: 0 Discharge Orders: Discharge Order (Routine); Ordered 10/01/20 Ordered By: Steven Barger/Other Patient Handouts: Clostridium Difficile Infection, What Is C. Diff? Admission Data Admit Date/Time: 09/19/20 05:06 Attending Provider: Steven Bailon Admit Provider: Eric Mancuso Primary Care Provider: Lavelle Carrillo Other Providers: Candelario Mitchell ; Eric Mancuso ; Bonifacio Lugo ; Emory Grijalva ; Kelvin Jacobsen Other Interventions: Discharge Summary Assessment (RN) Last Done: 10/01/20 12:06
== END 2020-10-01 12:55 | disposition home or self-care (01) | DRG 871 ==
LOC: ED 01:31 → 2N 05:06 → SUATTDRO 05:06 → 2N 06:03 → 1E 09-22 02:21 → 3W 09-26 15:06 → 1E 09-27 06:05 → 2E 09-29 13:09

== ENCOUNTER 2020-12-27 12:00 | Inpatient (IN) ==
[2020-12-27] MEDS ORDERED: LORazepam 1 MG/2 ML VIAL IV STA ×4 (13:07→20:31)
[2020-12-27] MEDS ORDERED: MULTI-VITAMIN INFUSION 10 ML, THIAMINE HCL 100 MG, FOLIC ACID 1 MG in SODIUM CHLORIDE 0... IV ONE (13:07)
--- NOTE | 2020-12-27 13:12 | Emergency Department Note ---
History of Present Illness General Chief complaint: Alcohol Withdrawal Stated complaint: ALCOHOL WITHDRAW Time Seen by Provider: 12/27/20 12:56 Source: patient and family (Son who is at the bedside) Mode of arrival: ambulatory Limitations: no limitations History of Present Illness Maximum Pain Intensity: 10 Patient comes in requesting treatment for alcohol withdrawal. He has seen here a day or so ago and went home and called the rehab facility in [place] that he wants to go to. They told him he needs to get detoxed first. He did drink alcohol last evening but has not denies any today. Denies any drug use. Denies any fall or trauma he has not been eating much and he has been nauseated but no vomiting. He denied feeling mildly anxious and mildly shaky. Mild headache. No shortness of breath. No abdominal pain. He does have a history of alcoholism and has been to rehab in the past. He did not have the Covid vaccine. Home Medications Medication Instructions Recorded Confirmed Type No Known Home Medications 12/25/20 12/27/20 History Allergies Allergy/AdvReac Type Severity Reaction Status Date / Time Penicillins Allergy Intermediate rash/sob Verified 12/27/20 13:39 Past Med/Surg History Medical History (Updated 12/27/20 @ 17:38 by Leo Briggs MD) Bronchitis C. difficile colitis Cough GERD (gastroesophageal reflux disease) Pneumonia Tobacco use disorder Surgical History H/O hernia repair Family History Other Heart disease Lung disease Social History (Updated 12/27/20 @ 16:14 by Obdulia Garcia PA-C) Smoking Status: Current some day smoker Tobacco Type: Cigarettes Second Hand Exposure: No; Hx Alcohol Use: Yes Alcohol type: hard liquor Hx Substance Use: No (alcohol) Preferred Language: Kuwaiti Communication Ability: Effective Beliefs That Will Affect Care: None marital status: Current Living Situation: Family current occupational status: employed Feels Safe at Home: Yes Assistive Devices: None Review of Systems A total of 10 systems reviewed and were otherwise negative Physical Exam Vital Signs Vital Signs - 24 hr 12/27/20 12:03 12/27/20 13:29 12/27/20 14:45 Temperature 36.3 C L Temperature Source Temporal Artery Scan Pulse Rate 102 H 101 H Pulse Rate from SpO2 Sensor Pulse Rhythm Regular Pulse Strength Normal Respiratory Rate 20 14 Respiratory Effort / Characteristics Non-Labored Spontaneous Respiratory Depth Normal Respiratory Pattern Regular Blood Pressure 138/88 Blood Pressure Mean 104 Blood Pressure Position Sitting Pulse Oximetry 97 99 Oxygen Delivery Method Room Air Room Air Sepsis Recent Fever Within 48 Hours No Sepsis New/Unexplained Change in Mental Status N/A Sepsis Action Taken by Nursing No Action Required 12/27/20 15:00 12/27/20 15:11 12/27/20 15:30 Temperature Temperature Source Pulse Rate 82 86 97 H Pulse Rate from SpO2 Sensor 89 99 H Pulse Rhythm Pulse Strength Respiratory Rate 18 19 16 Respiratory Effort / Characteristics Respiratory Depth Respiratory Pattern Blood Pressure 130/86 126/93 Blood Pressure Mean 100 104 Blood Pressure Position Pulse Oximetry 97 96 Oxygen Delivery Method Sepsis Recent Fever Within 48 Hours Sepsis New/Unexplained Change in Mental Status Sepsis Action Taken by Nursing 12/27/20 15:45 12/27/20 16:00 12/27/20 16:15 Temperature Temperature Source Pulse Rate 86 92 H 98 H Pulse Rate from SpO2 Sensor 85 94 H 103 H Pulse Rhythm Pulse Strength Respiratory Rate 16 15 20 Respiratory Effort / Characteristics Respiratory Depth Respiratory Pattern Blood Pressure Blood Pressure Mean Blood Pressure Position Pulse Oximetry 94 95 96 Oxygen Delivery Method Sepsis Recent Fever Within 48 Hours Sepsis New/Unexplained Change in Mental Status Sepsis Action Taken by Nursing General: Well developed well nourished middle-age male who appears in no acute distress, breathing comfortably on room air. Normal speech HEENT: Normal cephalic atraumatic. Pupils are equal round and reactive to light. Extraocular movements are intact. Oropharynx is pink with moist mucous membranes. No swelling of the mouth lips or tongue. Neck: Supple with a midline trachea. No meningeal signs or stiffness, no JVD or bruits. No Stridor. Chest: Clear to auscultation bilaterally. No wheezes or rhonchi. No increased work of breathing. Heart: Regular rate and rhythm without murmurs or gallops. Abdomen: Soft nontender, nondistended without rebound guarding or rigidity. Extremities: No cyanosis clubbing or edema. No calf tenderness or assymetry Spine/Back. Non tender to palpation. No CVA tenderness Skin: Good turgor without rashes. Neurologic exam: Cranial nerves two through 12 are intact. Motor and sensation are intact and symmetrical throughout. No nystagmus. Course Administered Medications Sodium Chloride (Nss 1000ml) 1,000 mls @ 125 mls/hr IV .Q8H STA Stop: 12/28/20 00:45 Last Admin: 12/27/20 16:57 Dose: 125 mls/hr Documented by: [id number] Discontinued Medications Gabapentin (Gabapentin 600 Mg Tab) 1,200 mg PO ONE STA Stop: 12/27/20 16:47 Last Admin: 12/27/20 16:57 Dose: 1,200 mg Documented by: [id number] Lorazepam (Ativan) 1 mg in 2 mls @ 2 mls/min IV NOW STA Stop: 12/27/20 13:08 Last Admin: 12/27/20 13:23 Dose: 2 mls/min Documented by: [id number] Multivitamins 10 ml/ Thiamine HCl 100 mg/ Folic Acid 1 mg/Sodium Chloride 1,011.2 mls @ 1,011.2 mls/hr IV .Q1H ONE Stop: 12/27/20 14:06 Last Infusion: 12/27/20 15:00 Dose: 0 mls/hr Documented by: [id number] Admin: 12/27/20 13:48 Dose: 1,011.2 mls/hr Documented by: [id number] Lorazepam (Ativan) 1 mg in 2 mls @ 2 mls/min IV NOW STA Stop: 12/27/20 13:57 Last Admin: 12/27/20 14:05 Dose: 2 mls/min Documented by: [id number] Nicotine (Nicotine 21 Mg/24 Hr Tdsy) 21 mg TD ONE STA Stop: 12/27/20 16:48 Last Admin: 12/27/20 16:57 Dose: 21 mg Documented by: [id number] Medical Decision Making Differential Diagnosis Alcohol intoxication, alcohol withdrawal, electrolyte or metabolic abnormality, infection, toxicologic process Medical Records Attestation: I reviewed the patient's medical records. Home Medications Current Medication List: was personally reviewed by me Laboratory Data Attestation: I reviewed the patient's lab results. Result diagrams: 12/27/20 13:17 12/27/20 13:11 Lab Results 12/27/20 12/27/20 12/27/20 Range/Units 13:11 13:11 13:17 WBC 4.42 L (4.8-10.8) K/uL RBC 4.40 L (4.7-6.1) M/uL Hgb 14.2 (14.0-18.0) g/dL Hct 40.4 L (42-52) % MCV 91.8 (80-100) fL MCH 32.3 (25-34) pg MCHC 35.1 (32-36) g/dL RDW Std Deviation 43.8 (36.4-46.3) fL RDW Coeff of Lorena 13.1 (11.5-14.5) % Plt Count 191 (130-400) K/uL MPV 9.9 (7.4-10.4) fL Immature Gran % (Auto) 0.0 % Neut % (Auto) 44.8 % Lymph % (Auto) 48.4 % Nash % (Auto) 5.0 % Eos % (Auto) 1.1 % Baso % (Auto) 0.7 % Neut # (Auto) 1.98 (1.4-6.5) K/uL Lymph # (Auto) 2.14 (1.2-3.4) K/uL Nash # (Auto) 0.22 (0.11-0.59) K/uL Eos # (Auto) 0.05 (0-0.5) K/uL Baso # (Auto) 0.03 (0-0.2) K/uL Immature Gran # (Auto) 0.00 (0.00-0.02) K/uL Sodium 145 (136-145) mmol/L Potassium 3.6 (3.5-5.1) mmol/L Chloride 111 H (98-107) mmol/L Carbon Dioxide 26 (21-32) mmol/L Anion Gap 8.0 (3-11) BUN 7 (7-18) mg/dl Creatinine 0.68 (0.6-1.4) mg/dl Est Cr Clr Drug Dosing 152.3 ml/min Est GFR ( Amer) 137.5 ml/min Est GFR (Non-Af Amer) 118.6 ml/min BUN/Creatinine Ratio 10.6 (10-20) Glucose 98 (70-99) mg/dl Calcium 8.2 L (8.5-10.1) mg/dl Magnesium 2.0 (1.8-2.4) mg/dl Total Bilirubin 0.5 (0.2-1) mg/dl AST 31 (15-37) U/L ALT 29 (12-78) U/L Alkaline Phosphatase 97 (45-117) U/L Total Protein 7.8 (6.4-8.2) gm/dl Albumin 4.0 (3.4-5.0) gm/dl Globulin 3.8 (2.5-4.0) gm/dl Albumin/Globulin Ratio 1.1 (0.9-2) Urine Opiates Screen (Neg) Ur Methadone, Qual (Neg) Urine Barbiturates (Neg) Ur Phencyclidine (PCP) (Neg) U Amphetamin/Meth Scrn (Neg) MDMA (Ecstasy) Screen (Neg) U Benzodiazepines Scrn (Neg) Ur Cocaine Metabolite (Neg) U Marijuana (THC) Screen (Neg) Ethyl Alcohol mg/dL 289.0 H (0-3) mg/dl COVID-19 Eval Order SARS-CoV-2 (PCR) (Negative) 12/27/20 12/27/20 12/27/20 Range/Units 13:29 13:29 13:29 WBC (4.8-10.8) K/uL RBC (4.7-6.1) M/uL Hgb (14.0-18.0) g/dL Hct (42-52) % MCV (80-100) fL MCH (25-34) pg MCHC (32-36) g/dL RDW Std Deviation (36.4-46.3) fL RDW Coeff of Lorena (11.5-14.5) % Plt Count (130-400) K/uL MPV (7.4-10.4) fL Immature Gran % (Auto) % Neut % (Auto) % Lymph % (Auto) % Nash % (Auto) % Eos % (Auto) % Baso % (Auto) % Neut # (Auto) (1.4-6.5) K/uL Lymph # (Auto) (1.2-3.4) K/uL Nash # (Auto) (0.11-0.59) K/uL Eos # (Auto) (0-0.5) K/uL Baso # (Auto) (0-0.2) K/uL Immature Gran # (Auto) (0.00-0.02) K/uL Sodium (136-145) mmol/L Potassium (3.5-5.1) mmol/L Chloride (98-107) mmol/L Carbon Dioxide (21-32) mmol/L Anion Gap (3-11) BUN (7-18) mg/dl Creatinine (0.6-1.4) mg/dl Est Cr Clr Drug Dosing ml/min Est GFR ( Amer) ml/min Est GFR (Non-Af Amer) ml/min BUN/Creatinine Ratio (10-20) Glucose (70-99) mg/dl Calcium (8.5-10.1) mg/dl Magnesium (1.8-2.4) mg/dl Total Bilirubin (0.2-1) mg/dl AST (15-37) U/L ALT (12-78) U/L Alkaline Phosphatase (45-117) U/L Total Protein (6.4-8.2) gm/dl Albumin (3.4-5.0) gm/dl Globulin (2.5-4.0) gm/dl Albumin/Globulin Ratio (0.9-2) Urine Opiates Screen Neg (Neg) Ur Methadone, Qual Neg (Neg) Urine Barbiturates Neg (Neg) Ur Phencyclidine (PCP) Neg (Neg) U Amphetamin/Meth Scrn Neg (Neg) MDMA (Ecstasy) Screen Neg (Neg) U Benzodiazepines Scrn Neg (Neg) Ur Cocaine Metabolite Neg (Neg) U Marijuana (THC) Screen Neg (Neg) Ethyl Alcohol mg/dL (0-3) mg/dl COVID-19 Eval Order Covid19 at [facility] SARS-CoV-2 (PCR) NEGATIVE (Negative) ECG Data Attestation: I personally reviewed and interpreted this ECG as follows: Indication: + weakness Rate (beats per minute): 90 Rhythm: + normal sinus ECG Intervals/blocks: + Normal QRS, + Prolonged QT and + Normal CA ECG [place]: + Normal ECG ST segments: + Normal ST segments ECG Findings: no PACs and no PVCs Comparison ECG Date: from (12/25/20) Change: no significant change MDM Narrative This patient comes in complaining about alcohol withdrawal and need for detox. IV access was established she was given Ativan 1 mg IV and a banana bag. Multiple blood testing was obtained and EKG was obtained he was placed on a quality assurance monitor body. I did Covid test him. His Covid test was negative. Blood alcohol was elevated at over 280. He has no significant electrolyte or metabolic abnormalities. He was given Ativan 1 mg IV initially and did require additional dose of Ativan and appears stable with this. I did consult the [employer] [facility] to see him for admission for alcohol withdrawal and medical treatment and evaluation of this. Continuous cardiac monitoring: An order was placed in EMR for continuous cardiac monitoring. The patient was noted to be in normal sinus rhythm with a rate of 95 upon my evaluation Impression & Plan Alcohol withdrawal syndrome, Desire for detoxification, Alcoholic intoxication, Lab test negative for COVID-19 virus, Anxiety Discharge Plan Visit Data Chief Complaint: Alcohol Withdrawal Stated Complaint: ALCOHOL WITHDRAW ED Provider: Leo Briggs Discharge Problem: Alcohol withdrawal syndrome, Desire for detoxification, Alcoholic intoxication, Lab test negative for COVID-19 virus, Anxiety Forms Stand Alone Forms: My [facility], Suicide Prevention Resources Prescriptions Prescriptions: No Action No Known Home Medications RF: 0 Discharge Problem: Alcohol withdrawal syndrome Qualifiers: Complication of substance-induced condition: uncomplicated Qualified Code(s): F10.230 - Alcohol dependence with withdrawal, uncomplicated Alcoholic intoxication Qualifiers: Complication of substance-induced condition: uncomplicated Qualified Code(s): F10.920 - Alcohol use, unspecified with intoxication, uncomplicated
[2020-12-27 13:38] LABS: Basophils # (auto) 0.03 K/uL (0-0.2); Basophils % (auto) 0.7 %; Eosinophils # (auto) 0.05 K/uL (0-0.5); Eosinophils % (auto) 1.1 %; Hematocrit (blood only) 40.4 % (42-52); Hemoglobin 14.2 g/dL (14.0-18.0); Lymphocytes # (auto) 2.14 K/uL (1.2-3.4); Lymphocytes % (auto) 48.4 %; Mean Corpuscular Hemoglobin 32.3 pg (25-34); Mean Corpuscular Hgb Conc 35.1 g/dL (32-36); Mean Corpuscular Volume 91.8 fL (80-100); Mean Platelet Volume 9.9 fL (7.4-10.4); Monocytes # (auto) 0.22 K/uL (0.11-0.59); Neutrophils # (auto) 1.98 K/uL (1.4-6.5); Neutrophils % (auto) 44.8 %; Platelet Count 191 K/uL (130-400); RDW Coefficient of Variation 13.1 % (11.5-14.5); RDW Standard Deviation 43.8 fL (36.4-46.3); White Blood Count 4.42 K/uL (4.8-10.8)
[2020-12-27 13:53] LABS: BUN Creatinine Ratio 10.6 (10-20); Calcium 8.2 mg/dl (8.5-10.1); Creatinine Clr Calc Pharmacy 152.3 ml/min; Est GFR (African American) 137.5 ml/min; Est GFR (Non-African American) 118.6 ml/min; Potassium 3.6 mmol/L (3.5-5.1)
[2020-12-27 13:55] LABS: Albumin Globulin Ratio 1.1 (0.9-2); Bilirubin,Total 0.5 mg/dl (0.2-1); Globulin 3.8 gm/dl (2.5-4.0); Total Protein 7.8 gm/dl (6.4-8.2)
[2020-12-27 14:27] LABS: Amphetamines+Metham, Urine Neg (Neg); Barbiturates, Urine Neg (Neg); Benzodiazepine, Urine Neg (Neg); Cocaine, Urine Neg (Neg); MDMA (Ecstacy), Urine Neg (Neg); Methadone, Urine Neg (Neg); Opiate, Urine Neg (Neg); Phencyclidine, Urine Neg (Neg)
--- NOTE | 2020-12-27 16:11 | History & Physical Report ---
Date of Service December 27, 2020 Assessment & Plan (1) Alcohol abuse: (2) Desire for detoxification: This is a 40yo M with a PMH of alcohol abuse and tobacco use who presents for alcohol detoxification. Planning to go to a rehab facility in [place] that requires detoxification first Stopped drinking alcohol 6 months ago but relapsed last Alcohol level 289 mg/dL on admission Given banana bag and 2mg Ativan in ER History of DTs in setting of alcohol withdrawal in the past Manage per [facility] protocol with Ativan and gabapentin Monitor on telemetry, continue IV fluids, monitor lytes, continue thiamine and folate daily Case mgmt consulted (3) Tobacco use disorder: Nicotine patch provided DVT Ppx: SQ lovenox Code status: FULL PCP: Gerardo Dispo: Admitted to PCU. Case mgmt ordered. Patient seen in collaboration with Dr. Cartwright. Please see addendum. History of Present Illness Chief Complaint: alcohol detox Primary Care Provider: Lavelle Carrillo, DO This is a 40yo M with a PMH of alcohol abuse and tobacco use who presents for alcohol detoxification. Planning to go to a rehab facility in [place] that requires detoxification first. Stopped drinking alcohol 6 months ago but relapsed last . Was seen in the ER few days ago but wanted to pursue outpatient rehab at that time and was discharged home. Has been drinking vodka daily x 6 days, although unable to fully quantify. Cannot remember when his last drink was. Thinks it was on Saturday. Alcohol level 289 on admission. History of DTs in setting of alcohol withdrawal in the past. Endorses feeling anxious with dry heaving. Denies fever, chills, chest pain, SOB, abdominal pain, dysuria, diarrhea or constipation. Denies any hallucinations or suicidal ideation. Feeling anxious about recent stressors in relationships but did not provide details. Has taken clonidine and doxepin in the past but is not currently taking any medications. Allergies Allergy/AdvReac Type Severity Reaction Status Date / Time Penicillins Allergy Intermediate rash/sob Verified 12/27/20 13:39 Home Medications Medication Instructions Recorded Confirmed Type No Known Home Medications 12/25/20 12/27/20 History Past Med/Surg History Medical History (Updated 12/27/20 @ 16:32 by Obdulia Garcia PA-C) Bronchitis C. difficile colitis Cough GERD (gastroesophageal reflux disease) Pneumonia Tobacco use disorder Surgical History H/O hernia repair Family History Other Heart disease Lung disease Social History (Updated 12/27/20 @ 16:14 by Obdulia Garcia PA-C) Smoking Status: Current some day smoker Tobacco Type: Cigarettes Second Hand Exposure: No; Hx Alcohol Use: Yes Alcohol type: hard liquor Hx Substance Use: No (alcohol) Preferred Language: Liberian Communication Ability: Effective Beliefs That Will Affect Care: None marital status: Current Living Situation: Family current occupational status: employed Feels Safe at Home: Yes Assistive Devices: None Review of Systems Review of Systems: At least ten systems reviewed and negative except as noted in the HPI. Physical Exam Physical Exam: Please see Dr. Cartwright's addendum for exam details. Results & Data Results & Data ([facility]) Vital Signs (Past 12 Hours) Vital Signs Temp Pulse Resp BP Pulse Ox 12/27/20 15:30 97 H 16 126/93 96 12/27/20 15:11 86 19 130/86 97 12/27/20 15:00 82 18 12/27/20 14:45 101 H 14 12/27/20 13:29 99 12/27/20 12:03 36.3 C L 102 H 20 138/88 97 Laboratory Results Short CBC 12/27/20 Range/Units 13:17 WBC 4.42 L (4.8-10.8) K/uL Hgb 14.2 (14.0-18.0) g/dL Hct 40.4 L (42-52) % Plt Count 191 (130-400) K/uL BMP 12/27/20 13:11 Sodium 145 Potassium 3.6 Chloride 111 H Carbon Dioxide 26 BUN 7 Creatinine 0.68 Glucose 98 Calcium 8.2 L Liver Function 12/27/20 Range/Units 13:11 Total Bilirubin 0.5 (0.2-1) mg/dl AST 31 (15-37) U/L ALT 29 (12-78) U/L Alkaline Phosphatase 97 (45-117) U/L Albumin 4.0 (3.4-5.0) gm/dl Supervising Physician Co-Signing Physician Notes Date of Service: December 27, 2020 40-year-old man with history of alcohol abuse, active smoker who presents to the hospital for detox prior to inpatient rehab. Patient does not remember when her last alcohol intake was but had reported to the ER doctor as last drink being yesterday. Patient is unable to provide how much he usually drinks. Stated that he quit drinking 6 months ago and he started back on . Reports he resumed due to stress but would not go into details when asked. Denies depression. Denied suicidal or homicidal ideation. Reports some anxiety at this time due to withdrawal. Reports palpitations, some dry heaves, occasional chest pressure which he stated is due to his withdrawal. No hallucinations/diaphoresis On exam General: No acute distress and not ill appearing Eyes: PERRL, conjunctivae normal, not pale, anicteric sclerae, EOM intact bilaterally ENMT: External ear and nose normal, oropharynx normal Neck: Normal visual inspection, no tracheal deviation, no swelling noted Respiratory: Normal respiratory effort, no respiratory distress, lungs clear to auscultation, no crackles and no wheezes Cardiovascular: Tachycardic, regular, S1 S2. no pedal edema Gastrointestinal (Abdomen): Abdomen is not distended, soft, non-tender to palpation, no guarding, no palpable hepatosplenomegaly, normal bowel sounds Musculoskeletal: No cyanosis or clubbing, all extremities motor strength 5/5 Neurologic: Alert and oriented x 3, No focal weakness, sensation grossly intact. No tremors of outstretched arms at this time Psychiatric: Alert and oriented x 3, euthymic affect Lab notable for alcohol level of 289 COVID test was negative -Alcohol abuse -Alcohol withdrawal Got MVI in ER Continue IV fluids Continue thiamine and folate daily Manage per [facility] protocol with Ativan and gabapentin Monitor electrolytes and replete appropriately Case management consult Agree with plans as detailed by Obdulia Garcia PA-C
--- NOTE | 2020-12-27 16:32 | Communication Note ---
Date of Service: December 27, 2020 40-year-old man with history of alcohol abuse, active smoker who presents to the hospital for detox prior to inpatient rehab. Patient does not remember when her last alcohol intake was but had reported to the ER doctor as last drink being yesterday. Patient is unable to provide how much he usually drinks. Stated that he quit drinking 6 months ago and he started back on . Reports he resumed due to stress but would not go into details when asked. Denies depression. Denied suicidal or homicidal ideation. Reports some anxiety at this time due to withdrawal. Reports palpitations, some dry heaves, occasional chest pressure which he stated is due to his withdrawal. No hallucinations/diaphoresis On exam General: No acute distress and not ill appearing Eyes: PERRL, conjunctivae normal, not pale, anicteric sclerae, EOM intact bilaterally ENMT: External ear and nose normal, oropharynx normal Neck: Normal visual inspection, no tracheal deviation, no swelling noted Respiratory: Normal respiratory effort, no respiratory distress, lungs clear to auscultation, no crackles and no wheezes Cardiovascular: Tachycardic, regular, S1 S2. no pedal edema Gastrointestinal (Abdomen): Abdomen is not distended, soft, non-tender to palpation, no guarding, no palpable hepatosplenomegaly, normal bowel sounds Musculoskeletal: No cyanosis or clubbing, all extremities motor strength 5/5 Neurologic: Alert and oriented x 3, No focal weakness, sensation grossly intact. No tremors of outstretched arms at this time Psychiatric: Alert and oriented x 3, euthymic affect Lab notable for alcohol level of 289 COVID test was negative -Alcohol abuse -Alcohol withdrawal Got MVI in ER Continue IV fluids Continue thiamine and folate daily Manage per [facility] protocol with Ativan and gabapentin Monitor electrolytes and replete appropriately Case management consult Agree with plans as detailed by Obdulia Garcia PA-C
[2020-12-27] MEDS ORDERED: SODIUM CHLORIDE 0.9% 1000ML 1,000 ML IV STA (16:46)
[2020-12-27] MEDS ORDERED: GABAPENTIN 600 MG TAB PO STA (16:46)
[2020-12-27] MEDS ORDERED: NICOTINE 21 MG/24 HR TDSY TD STA (16:47)
--- NOTE | 2020-12-27 17:55 | Electrocardiogram Report ---
Test Reason : Blood Pressure : / mmHG Vent. Rate : 090 BPM Atrial Rate : 090 BPM P-R Int : 126 ms QRS Dur : 088 ms QT Int : 394 ms P-R-T Axes : 052 004 022 degrees QTc Int : 481 ms Normal sinus rhythm Prolonged QT Abnormal ECG When compared with ECG of 25-DEC-2020 19:22, No significant change was found Confirmed by Fred Graham ([id number]) on 12/27/2020 5:55:14 PM Referred By: REFERRED SELF Confirmed By:Juan Graham
[2020-12-27] MEDS ORDERED: ATIVAN IV ALCOHOL WITHDRAWL IV PRN (18:51)
[2020-12-27] MEDS ORDERED: POLYETHYLENE (MIRALAX) 17 GM PACK PO PRN (18:51)
[2020-12-27] MEDS ORDERED: ACETAMINOPHEN 325 MG TAB PO PRN (18:51)
[2020-12-27] MEDS ORDERED: LORazepam 3 MG/6 ML VIAL IV PRN (18:51)
[2020-12-27] MEDS ORDERED: ONDANSETRON INJ 2 MG/ML 2 ML VIAL IV PRN (18:51)
[2020-12-27] MEDS ORDERED: GABAPENTIN 1200MG ALCOHOL WITHDRAWAL LOAD PO STA (18:51)
[2020-12-27] MEDS ORDERED: LORazepam 2 MG/4 ML VIAL IV PRN (18:51)
[2020-12-27] MEDS ORDERED: ENOXAPARIN INJ 40 MG/0.4 ML SYR SQ SCH (19:00)
[2020-12-27] MEDS: FOLIC ACID 1 MG TAB PO SCH (21:08)
[2020-12-27] MEDS: THIAMINE HCL 100 MG TAB PO SCH (21:09)
[2020-12-27] MEDS: GABAPENTIN 600 MG TAB PO SCH (23:41)
[2020-12-28] MEDS: LORazepam 1 MG/2 ML VIAL IV PRN ×3 (03:09→12:24)
[2020-12-28 05:52] LABS: Hematocrit (blood only) 37.5 % (42-52); Hemoglobin 13.1 g/dL (14.0-18.0); Mean Corpuscular Hgb Conc 34.9 g/dL (32-36); Mean Corpuscular Volume 91.5 fL (80-100); Mean Platelet Volume 9.8 fL (7.4-10.4); Platelet Count 147 K/uL (130-400); RDW Coefficient of Variation 12.9 % (11.5-14.5); RDW Standard Deviation 43.3 fL (36.4-46.3); White Blood Count 4.72 K/uL (4.8-10.8)
[2020-12-28] MEDS: GABAPENTIN 600 MG TAB PO SCH (06:15)
[2020-12-28 06:28] LABS: Albumin Level 3.6 gm/dl (3.4-5.0); BUN Creatinine Ratio 14.9 (10-20); Calcium 8.3 mg/dl (8.5-10.1); Creatinine Clr Calc Pharmacy 161.8 ml/min; Est GFR (Non-African American) 121.6 ml/min; Magnesium 1.6 mg/dl (1.8-2.4); Potassium 3.5 mmol/L (3.5-5.1)
[2020-12-28 06:31] LABS: Albumin Globulin Ratio 1.1 (0.9-2); Bilirubin,Total 0.9 mg/dl (0.2-1); Globulin 3.4 gm/dl (2.5-4.0)
[2020-12-28] MEDS: FOLIC ACID 1 MG TAB PO SCH (08:49)
[2020-12-28] MEDS: THIAMINE HCL 100 MG TAB PO SCH (08:49)
[2020-12-28] MEDS ORDERED: NICOTINE 21 MG/24 HR TDSY TD SCH (09:00)
--- NOTE | 2020-12-28 10:54 | Hospitalist Progress Note ---
Date of Service December 28, 2020 Assessment & Plan (1) Alcohol abuse: Heavy drinking for ten years. He is doing well from a withdrawal standpoint. De-escalate to floor. Would recommend cont gabapentin protocol and Ativan PRN. Cont folate and thiamine. (2) Desire for detoxification: Withdrawal inpatient desired. (3) Tobacco use disorder: Nicotine patch declined by patient (4) DVT prophylaxis: Lovenox Full Code Dispo-to floor. Would recommend continued hospitalization at this point. Wendy Burr [facility] and [facility]ticipated Discharge Date Admission Date: December 27, 2020 Subjective 40 yo alcoholic presented for alcohol detoxification. He is doing well today on gabapentin withdrawal taper and several doses of Ativan overnight. He is not tachycardic, tremulous or anxious and is mentating well. He is ambulatory and is eating well. He otherwise has no symptoms he is reporting at this time. Review of Systems Review of Systems: All systems reviewed & are unremarkable except as noted in Subjective Physical Exam Physical Exam: CONSTITUTIONAL: WNWD, vitals as above, generally well- appearing EYES: normal conjunctivae, no scleral icterus ENT: external ear and nose normal, MMM RESPIRATORY: clear to auscultation bilaterally, no crackles, rales or wheezes, normal respiratory effort CARDIOVASCULAR: regular rate and rhythm, S1 and 2 heard without murmurs, gallops or rubs, no JVD, no peripheral edema GASTROINTESTINAL: soft, nontender, ND, no guarding. MUSCULOSKELETAL: strength 5/5 throughout, head is normocephalic and atraumatic,ambulatory SKIN: warm and dry NEUROLOGIC: no facial palsy, no dysarthria. CN 2-12 grossly intact, no sensory deficit, normal cognition, normal speech, no tremor PSYCHIATRIC: alert cooperative and oriented to person, place and time. Euthymic mood, makes good eye contact, language grossly intact, recent and remote memory grossly intact. Results & Data Results & Data ([facility]) Vital Signs (Past 12 Hours) Vital Signs Temp Pulse Pulse Pulse Resp BP BP 12/28/20 07:34 36.6 C 74 18 134/71 12/28/20 03:00 36.7 C 85 16 130/78 12/27/20 23:59 100 H 12/27/20 23:20 36.9 C 82 18 114/75 Pulse Ox 12/28/20 07:34 97 12/28/20 03:00 97 12/27/20 23:59 12/27/20 23:20 94 Laboratory Results Short CBC 12/27/20 12/28/20 Range/Units 13:17 05:29 WBC 4.42 L 4.72 L (4.8-10.8) K/uL Hgb 14.2 13.1 L (14.0-18.0) g/dL Hct 40.4 L 37.5 L (42-52) % Plt Count 191 147 (130-400) K/uL BMP 12/27/20 12/28/20 13:11 05:29 Sodium 145 140 Potassium 3.6 3.5 Chloride 111 H 107 Carbon Dioxide 26 27 BUN 7 10 Creatinine 0.68 0.64 Glucose 98 89 Calcium 8.2 L 8.3 L Liver Function 12/27/20 12/28/20 Range/Units 13:11 05:29 Total Bilirubin 0.5 0.9 (0.2-1) mg/dl AST 31 23 (15-37) U/L ALT 29 23 (12-78) U/L Alkaline Phosphatase 97 93 (45-117) U/L Albumin 4.0 3.6 (3.4-5.0) gm/dl Medications Administered Current Inpatient Medications Acetaminophen (Acetaminophen 325 Mg Tab) 650 mg PO Q4H PRN PRN Reason: Pain or Fever Stop: 01/26/21 18:50 Last Admin: 12/27/20 21:09 Dose: 650 mg Documented by: Enoxaparin Sodium (Enoxaparin Inj 40 Mg/0.4 Ml Syr) 40 mg SQ Q24H KARLI Stop: 01/26/21 18:59 Last Admin: 12/27/20 21:09 Dose: 40 mg Documented by: Folic Acid (Folic Acid 1 Mg Tab) 1 mg PO QAM KARLI Stop: 01/26/21 18:50 Last Admin: 12/28/20 08:49 Dose: 1 mg Documented by: Gabapentin (Gabapentin 600 Mg Tab) 600 mg PO Q8H KARLI Stop: 12/29/20 06:01 Gabapentin (Gabapentin 600 Mg Tab) 600 mg PO Q12H KARLI Stop: 12/30/20 06:01 Gabapentin (Gabapentin 600 Mg Tab) 600 mg PO Q24H KARLI Stop: 12/31/20 06:01 Lorazepam (Ativan) 1 mg in 2 mls @ 2 mls/min IV UD PRN; Protocol PRN Reason: EtOH Withdrawl AWSS Score 6,7 Stop: 01/26/21 18:50 Last Admin: 12/28/20 08:58 Dose: 2 mls/min Documented by: Lorazepam (Ativan) 2 mg in 4 mls @ 4 mls/min IV UD PRN; Protocol PRN Reason: EtOH Withdrawl AWSS Score 8,9 Stop: 01/26/21 18:50 Lorazepam (Ativan) 3 mg in 6 mls @ 4 mls/min IV ONCE PRN; Protocol PRN Reason: EtOH Withdrawl AWSS Score >=10 Stop: 01/26/21 18:50 Miscellaneous (Remove Nicoderm Patch) 1 ea N/A DAILY@0859 [facility] Stop: 01/27/21 08:58 Last Admin: 12/28/20 08:48 Dose: 1 ea Documented by: Nicotine (Nicotine 21 Mg/24 Hr Tdsy) 21 mg TD DAILY [facility] Stop: 01/27/21 08:59 Last Admin: 12/28/20 08:48 Dose: Not Given Documented by: Ondansetron HCl (Ondansetron Inj 2 Mg/Ml 2 Ml Vial) 4 mg IV Q6H PRN PRN Reason: Nausea Stop: 01/26/21 18:50 Polyethylene Glycol (Polyethylene (Miralax) 17 Gm Pack) 17 gm PO DAILY PRN PRN Reason: Constipation Stop: 01/26/21 18:50 Thiamine HCl (Thiamine Hcl 100 Mg Tab) 100 mg PO QAM [facility] Stop: 01/26/21 18:50 Last Admin: 12/28/20 08:49 Dose: 100 mg Documented by:
[2020-12-28] MEDS ORDERED: GABAPENTIN 600 MG TAB PO SCH (14:00)
--- NOTE | 2020-12-28 15:52 | Discharge Summary ---
Date of Service December 28, 2020 Admission HPI Per Admitting Provider This is a 40yo M with a PMH of alcohol abuse and tobacco use who presents for alcohol detoxification. Planning to go to a rehab facility in [place] that requires detoxification first. Stopped drinking alcohol 6 months ago but relapsed last . Was seen in the ER few days ago but wanted to pursue outpatient rehab at that time and was discharged home. Has been drinking vodka daily x 6 days, although unable to fully quantify. Cannot remember when his last drink was. Thinks it was on Saturday. Alcohol level 289 on admission. History of DTs in setting of alcohol withdrawal in the past. Endorses feeling anxious with dry heaving. Denies fever, chills, chest pain, SOB, abdominal pain, dysuria, diarrhea or constipation. Denies any hallucinations or suicidal ideation. Feeling anxious about recent stressors in relationships but did not provide details. Has taken clonidine and doxepin in the past but is not currently taking any medications. Admission Exam Per Admitting Provider On exam General: No acute distress and not ill appearing Eyes: PERRL, conjunctivae normal, not pale, anicteric sclerae, EOM intact bilaterally ENMT: External ear and nose normal, oropharynx normal Neck: Normal visual inspection, no tracheal deviation, no swelling noted Respiratory: Normal respiratory effort, no respiratory distress, lungs clear to auscultation, no crackles and no wheezes Cardiovascular: Tachycardic, regular, S1 S2. no pedal edema Gastrointestinal (Abdomen): Abdomen is not distended, soft, non-tender to palpation, no guarding, no palpable hepatosplenomegaly, normal bowel sounds Musculoskeletal: No cyanosis or clubbing, all extremities motor strength 5/5 Neurologic: Alert and oriented x 3, No focal weakness, sensation grossly intact. No tremors of outstretched arms at this time Psychiatric: Alert and oriented x 3, euthymic affect Principal Diagnosis alcohol abuse alcohol withdrawal smoking Discharge Exam see note Discharge Data Allergies Allergy/AdvReac Type Severity Reaction Status Date / Time Penicillins Allergy Intermediate rash/sob Verified 12/27/20 13:39 Consultations 12/27/20 15:38 ED Decision to Admit Stat Ordered Studies Laboratory Results WBC 4.72 K/uL (4.8-10.8) L 12/28/20 05:29 RBC 4.10 M/uL (4.7-6.1) L 12/28/20 05:29 Hgb 13.1 g/dL (14.0-18.0) L 12/28/20 05:29 Hct 37.5 % (42-52) L 12/28/20 05:29 MCV 91.5 fL (80-100) 12/28/20 05:29 MCH 32.0 pg (25-34) 12/28/20 05:29 MCHC 34.9 g/dL (32-36) 12/28/20 05:29 RDW Std Deviation 43.3 fL (36.4-46.3) 12/28/20 05:29 RDW Coeff of Lorena 12.9 % (11.5-14.5) 12/28/20 05:29 Plt Count 147 K/uL (130-400) 12/28/20 05:29 MPV 9.8 fL (7.4-10.4) 12/28/20 05:29 Immature Gran % (Auto) 0.0 % 12/27/20 13:17 Neut % (Auto) 44.8 % 12/27/20 13:17 Lymph % (Auto) 48.4 % 12/27/20 13:17 Stark % (Auto) 5.0 % 12/27/20 13:17 Eos % (Auto) 1.1 % 12/27/20 13:17 Baso % (Auto) 0.7 % 12/27/20 13:17 Neut # (Auto) 1.98 K/uL (1.4-6.5) 12/27/20 13:17 Lymph # (Auto) 2.14 K/uL (1.2-3.4) 12/27/20 13:17 Stark # (Auto) 0.22 K/uL (0.11-0.59) 12/27/20 13:17 Eos # (Auto) 0.05 K/uL (0-0.5) 12/27/20 13:17 Baso # (Auto) 0.03 K/uL (0-0.2) 12/27/20 13:17 Immature Gran # (Auto) 0.00 K/uL (0.00-0.02) 12/27/20 13:17 Sodium 140 mmol/L (136-145) 12/28/20 05:29 Potassium 3.5 mmol/L (3.5-5.1) 12/28/20 05:29 Chloride 107 mmol/L (98-107) 12/28/20 05:29 Carbon Dioxide 27 mmol/L (21-32) 12/28/20 05:29 Anion Gap 5.0 (3-11) 12/28/20 05:29 BUN 10 mg/dl (7-18) 12/28/20 05:29 Creatinine 0.64 mg/dl (0.6-1.4) 12/28/20 05:29 Est Cr Clr Drug Dosing 161.8 ml/min 12/28/20 05:29 Est GFR ( Amer) 141.0 ml/min 12/28/20 05:29 Est GFR (Non-Af Amer) 121.6 ml/min 12/28/20 05:29 BUN/Creatinine Ratio 14.9 (10-20) 12/28/20 05:29 Glucose 89 mg/dl (70-99) 12/28/20 05:29 Calcium 8.3 mg/dl (8.5-10.1) L 12/28/20 05:29 Magnesium 1.6 mg/dl (1.8-2.4) L 12/28/20 05:29 Total Bilirubin 0.9 mg/dl (0.2-1) 12/28/20 05:29 AST 23 U/L (15-37) 12/28/20 05:29 ALT 23 U/L (12-78) 12/28/20 05:29 Alkaline Phosphatase 93 U/L (45-117) 12/28/20 05:29 Total Protein 7.0 gm/dl (6.4-8.2) 12/28/20 05:29 Albumin 3.6 gm/dl (3.4-5.0) 12/28/20 05:29 Globulin 3.4 gm/dl (2.5-4.0) 12/28/20 05:29 Albumin/Globulin Ratio 1.1 (0.9-2) 12/28/20 05:29 Urine Opiates Screen Neg (Neg) 12/27/20 13:29 Ur Methadone, Qual Neg (Neg) 12/27/20 13:29 Urine Barbiturates Neg (Neg) 12/27/20 13:29 Ur Phencyclidine (PCP) Neg (Neg) 12/27/20 13:29 U Amphetamin/Meth Scrn Neg (Neg) 12/27/20 13:29 MDMA (Ecstasy) Screen Neg (Neg) 12/27/20 13:29 U Benzodiazepines Scrn Neg (Neg) 12/27/20 13:29 Ur Cocaine Metabolite Neg (Neg) 12/27/20 13:29 U Marijuana (THC) Screen Neg (Neg) 12/27/20 13:29 Ethyl Alcohol mg/dL 289.0 mg/dl (0-3) H 12/27/20 13:11 COVID-19 Eval Order Covid19 at [facility] 12/27/20 13:29 SARS-CoV-2 (PCR) NEGATIVE (Negative) 12/27/20 13:29 Hospital Course (1) Alcohol abuse: Heavy drinking for ten years. He is doing well from a withdrawal standpoint. De-escalate to floor. Would recommend cont gabapentin protocol and Ativan PRN. Cont folate and thiamine. (2) Desire for detoxification: Withdrawal inpatient desired. (3) Tobacco use disorder: Nicotine patch declined by patient (4) DVT prophylaxis: Lovenox Full Code Dispo-to floor. Would recommend continued hospitalization at this point. Wendy Burr DO [facility] Hospitalist Total Time Total Time Spent Total Time Spent (In Minutes): 60 Total Time Includes: Examination of the Patient, Discharge Planning, Medication Reconciliation and Communication With Other Providers Discharge Plan Discharge Items Patient Disposition: Home - Self-Care Reason For Visit: ALCOHOL DETOXIFICATION Discharge Diagnosis: alcohol abuse alcohol withdrawal smoking Condition on Discharge: Fair Activity: Resume your previous activity Non-emergency contact: Primary Care Provider Call non-emergency contact if: you have any medication questions and your symptoms worsen Follow-up/Referrals: Lavelle Carrillo DO [Primary Care Provider] - Diet: Regular Addtl Attending Provider Instructions: As you were admitted for alcohol withdrawal treatment, and her leaving prior to recommended discharge, you may experience persistent symptoms at home. Symptoms of alcohol withdrawal include insomnia, tremulousness, anxiety, gastrointestinal upset, headache, diaphoresis or sweating, heart palpitations. If the symptoms persist they may progress into withdrawal seizures. You are being given a medication called Librium to help truman the symptoms. This medication should not be mixed with narcotics or alcohol. You should not drive while taking this medicine. Please use this medicine as needed for any of the symptoms listed above. Please seek immediate medical attention if symptoms return, or if you become concerned. It is recommended that you follow-up with your primary care doctor within 1 week of discharge from the hospital to ensure you are still doing well after going home. As we discussed it is strongly recommended that you enter into an inpatient alcohol rehabilitation program to ensure complete cessation of alcohol use. It is strongly recommended that you quit smoking as this is terrible for your health. It was a pleasure taking care of you! Please call if you have any questions or problems. You can reach a [facility] hospitalist on duty at [facility] 24 hours a day by calling [phone]. Take care of yourself. Wendy Burr, [facility] Hospitalist Pending Studies at Discharge: No Stand-Alone Forms: My [facility], Smoking Cessation Medications and DC Order Prescriptions: New chlordiazepoxide HCl 25 mg capsule 25 mg PO Q6H PRN (Reason: anxiety/alcohol withdrawal symptoms) Qty: 10 RF: 0 Discharge Orders: Discharge Order (Routine); Ordered 12/28/20 Ordered By: Wendy Burr Admission Data Admit Date/Time: 12/27/20 16:36 Attending Provider: Wendy Burr Admit Provider: Tyesha Cartwright I. Primary Care Provider: Lavelle Carrillo Other Providers: Tyesha Cartwright I.
[2020-12-29] MEDS ORDERED: GABAPENTIN 600 MG TAB PO SCH (18:00)
--- NOTE | 2020-12-30 13:20 | Coding Query ---
CODING QUERY To promote full compliance with coding requirements relating to patient care, provider participation is requested in all cases of coil assembler uncertainty. Please assist us with the question(s) below: Coding Question(s): Upon admission this patient was documented as having alcohol abuse with an alcohol level of 289 mg/dL and desire for detoxification. Please indicate below if in your clinical opinion this patient was intoxicated. Physician's Response(s): ( ) Alcohol abuse with intoxication ( ) Alcohol abuse without intoxication ( x ) Other, please specify: Alcohol abuse with withdrawal. Refer to Supervising Physician addendum in H&P ( ) Unable to determine Thank you Lucila Boyer Principal Diagnosis: "that condition established after study, to be chiefly responsible for occasioning the admission of the patient to the hospital for care." Co-Existing Principal Diagnosis: "when two or more diagnoses equally meet the criteria for principal diagnosis as determined by the circumstances of admission, diagnostic work up, and/or therapy provided, and the Alphabetic Index, Tabular List, or another coding guideline does not provide sequencing direction, any one of the diagnoses may be sequenced first." "When the physician has documented what appears to be a current diagnosis in the body of the record, but has not included the diagnosis in the final diagnostic statement, the physician should be asked whether the diagnosis should be added." (Source [facility]oding [facility] 2 QTR90. p3-4) RIN
[2020-12-31] MEDS ORDERED: GABAPENTIN 600 MG TAB PO SCH (06:00)
== END 2020-12-28 16:23 | disposition home or self-care (01) | DRG 897 ==
LOC: ED 12:00 → SUATTDRO 16:36 → 2S 16:36